=== PATIENT | female | born 1955 | race Caucasian/White ===

== ENCOUNTER 2019-12-23 08:09 | Outpatient (CLI) | payer MEDICARE, MEDICAID, SELFPAY | END 2019-12-23 08:10 | disposition home or self-care (01) | PROVIDERS: PCP Internal Medicine; Visit Provider Internal Medicine | DX: R39.9 Unspecified symptoms and signs involving the genitourinary system (principal) | CPT/HCPCS: 87086; 87088 ==

== ENCOUNTER 2019-12-26 09:33 | Outpatient (CLI) | payer MEDICARE, MEDICAID, SELFPAY | END 2019-12-26 09:34 | disposition home or self-care (01) | LOC: ANHLAB 09:35 | PROVIDERS: PCP Internal Medicine; Visit Provider Internal Medicine | DX: R39.9 Unspecified symptoms and signs involving the genitourinary system (principal) | CPT/HCPCS: 87077; 87086; 87088; 87186 ==

== ENCOUNTER 2020-01-08 07:15 | Outpatient (CLI) | payer MEDICARE, MEDICAID, SELFPAY ==
--- NOTE | ~2020-01-08 | CT_ITS ---
EXAMINATION: CT abdomen pelvis wo con DATE: 01/08/2020 07:47 INDICATION: Kidney calculus TECHNIQUE: Computed tomography (CT) of the abdomen and pelvis was performed without intravenous contr ast. Automated exposure control and iterative reconstruction technique were employed. Exam dose: 151 6.97 mGy-cm total exam DLP. COMPARISON: 07/07/[address] abdomen pelvis FINDINGS: Cardiomegaly. No pericardial or pleural effusion. There is mild discoid atelectasis and/or scarring in the lower lungs. No consolidation is noted. No hepatic space-occupying mass lesion or intrahepatic or extrahepatic bile duct dilatation is detect ed. The gallbladder is absent. Spleen measures 11.5 cm length, 14 cm being upper limits of normal. No pancreatic mass lesion, calcification or ductal dilatation. Normal morphology of the adrenal glands. There is bilateral renal atrophy and prominent scarring. There are two 5 mm or smaller nonobstructing lower pole right renal calculi and suggestion of a coupl e of pinpoint nonobstructing additional mid to lower right renal calculi. There are 4 larger nonobstructing left renal calculi, measuring up to 8 x 12.6 mm dimension, the latt er with attenuation 470 Hounsfield units. No ureteral calculi or hydroureteronephrosis. The urinary bladder is unremarkable. The uterus is abse nt. Stable 5.8 mm cystic lesion in the right adnexal area, unchanged since 07/07/2019 or 04/17/2018, with a ttenuation of 17 Hounsfield units. This is likely a postoperative seroma or other benign process give n the stability since 04/17/2018. Relatively stable 2.0 and 2.6 cm cystic areas in the left lower quadrant, unchanged since 07/07/2019 Probable appendectomy. There are numerous diverticula of the sigmoid and to a lesser extent descending colon; no CT evidence of diverticulitis. No bowel obstruction, bowel wall thickening, pneumatosis. Small fat-containing umbilical hernia. There is partial herniation of a loop of small bowel through a defect in the left parasagittal ventra l lower abdominal wall. No evidence of bowel obstruction or strangulation. There is persistent but diminished fat stranding along the infraumbilical anterior abdominal wall sin ce 07/07/2019. Diffuse idiopathic skeletal hyperostosis of the lower thoracic spine. No suspicious osteolytic or ost eoblastic lesions are identified. IMPRESSION: Bilateral renal atrophy and prominent scarring Bilateral nonobstructive nephrolithiasis Stable lower left abdominal and right adnexal cystic lesions since 07/07/2019 Diverticulosis of the sigmoid colon; no CT evidence of diverticulitis Minimal small bowel herniation through a left parasagittal lower ventral abdominal hernia Reviewed, dictated and finalized at [facility]. Reviewed, dictated and finalized at location B. IMPRESSION: Bilateral renal atrophy and prominent scarring Bilateral nonobstructive nephrolithiasis Stable lower left abdominal and right adnexal cystic lesions since 07/07/2019 Diverticulosis of the sigmoid colon; no CT evidence of diverticulitis Minimal small bowel herniation through a left parasagittal lower ventral abdomi nal hernia
== END 2020-01-08 07:16 | disposition home or self-care (01) ==
LOC: ANHIMG 07:22
PROVIDERS: PCP Internal Medicine; Visit Provider Urology
DX: N20.0 Calculus of kidney (principal); E27.8 Other specified disorders of adrenal gland; K57.30 Diverticulosis of large intestine without perforation or abscess without bleeding; K43.9 Ventral hernia without obstruction or gangrene
CPT/HCPCS: 74176

== ENCOUNTER 2020-02-03 08:50 | Outpatient (CLI) | payer MEDICARE, MEDICAID, SELFPAY ==
--- NOTE | 2020-02-03 08:57 | ECHO_ITS ---
Patient Info Name: Rosario Ruiz Age: 64 years : 1955 Gender: Female Ht: 65 in Wt: 340 lbs BSA: 2.76 m2 HR: 72 bpm BP: 128 / 82 mmHg Technical Quality: Poor, Other Exam Date: 02/03/2020 9:04 AM Exam Location: [facility] Patient Status: Outpatient Admit Date: 02/03/2020 Staff Ordering Physician: Kenny Ramos DO [employer] Manager: Jolynn Rose RDCS Attending Provider: Kenny Ramos DO Referring Physician: Richard MCMANUS; Exam Type: CA echo dop color flow w con Study Info Indications - heart disease sob Complete two-dimensional, color flow and Doppler transthoracic echocardiogram is performed with contrast to opacify the left ventricle and to improve the deliniation of the left ventricle endocardial borders. Contrast/Agitated Saline Contrast/Ag. Saline: Definity Amount: 2.00 ml Administered By: Janak Martinez RN New IV Access: Left Site Condition: IV removed Reason for Poor Study: patient body habitus Summary 1. Technically suboptimal study due to poor sonographic images. 2. Left ventricular chamber dimension is normal. 3. Definity contrast administered improved wall motion interpretation. 4. Left ventricular systolic function is normal, estimated at 60-65%. 5. There is moderately increased left ventricular wall thickness. 6. The left ventricular diastolic function is grade I diastolic dysfunction. 7. E/e' 11 is mildly elevated. 8. Right ventricular systolic function is mildly reduced. 9. Right ventricular chamber dimension is moderately enlarged. 10. Left atrial chamber dimension is mildly enlarged. 11. Right atrial chamber dimension is mildly enlarged. 12. No pulmonary hypertension, estimated pulmonary arterial systolic pressure is 29 mmHg. 13. There is mild pulmonic regurgitation. 14. There is small to moderate circumferential pericardial effusion. Moderate is located posteriorly measuring up to 1.4 cm. Left Ventricle Technically suboptimal study due to poor sonographic images. Definity contrast administered improved wall motion interpretation. E/e' 11 is mildly elevated. Left ventricular chamber dimension is normal. Left ventricular systolic function is normal, estimated at 60-65%. There is moderately increased left ventricular wall thickness. The left ventricular diastolic function is grade I diastolic dysfunction. Right Ventricle Right ventricular systolic function is mildly reduced. Right ventricular chamber dimension is moderately enlarged. Left Atria Left atrial chamber dimension is mildly enlarged. Right Atria Right atrial chamber dimension is mildly enlarged. Aortic Valve Cannot determine number of aortic valve leaflets. The aortic valve is not well visualized. There is no aortic valve stenosis. There is no aortic valve regurgitation. Pulmonic Valve There is mild pulmonic regurgitation. Mitral Valve There is no mitral valve stenosis. There is no mitral valve regurgitation. Tricuspid Valve There is no tricuspid valve regurgitation. No pulmonary hypertension, estimated pulmonary arterial systolic pressure is 29 mmHg. Pericardium/Pleural There is small to moderate circumferential pericardial effusion. Moderate is located posteriorly measuring up to 1.4 cm. Inferior Vena Cava Normal inferior vena cava with >50% collapse upon inspiration consistent with normal right atrial pressure, 5 mmHg. Aorta The aortic root size at the sinus of Valsalva is norm
== END 2020-02-03 08:51 | disposition home or self-care (01) ==
LOC: ANHCARD 08:52
PROVIDERS: PCP Internal Medicine; Visit Provider Internal Medicine Cardiovascular Disease
DX: I51.89 Other ill-defined heart diseases (principal)
CPT/HCPCS: C8929

== ENCOUNTER 2020-02-22 08:47 | Outpatient (CLI) | payer MEDICARE, MEDICAID, SELFPAY ==
--- NOTE | ~2020-02-22 | XR_ITS ---
XR knee LT 3V DATE: 02/22/2020 09:06 INDICATION: Patellar pain. No injury. TECHNIQUE: [place] and standing AP and lateral views COMPARISON: 08/12/2016 bilateral knees FINDINGS: There is hypertrophic change of the tibial spines. There is prominent periarticular spurrin g of the patellofemoral and lateral compartments. Moderate osteopenia. No fracture, dislocation, periosteal reaction or bone destruction, radiopaque in tra-articular loose body or chondrocalcinosis. IMPRESSION: Osteoarthritis involving primarily the lateral and patellofemoral compartments Osteopenia Reviewed, dictated and finalized at location A. IMPRESSION: Osteoarthritis involving primarily the lateral and patellofemoral c ompartments Osteopenia
== END 2020-02-22 08:48 | disposition home or self-care (01) ==
LOC: ANHIMG 08:51
PROVIDERS: PCP Internal Medicine; Visit Provider Nurse Practitioner
DX: M85.862 Other specified disorders of bone density and structure, left lower leg (principal); M17.12 Unilateral primary osteoarthritis, left knee
CPT/HCPCS: 73562

== ENCOUNTER 2020-02-24 21:22 | Observation (INO) | payer MEDICARE, MEDICAID, SELFPAY ==
--- NOTE | ~2020-02-24 | US_ITS ---
EXAMINATION: US venous doppler [facility] DATE: 02/25/2020 14:48 INDICATION: Lower limb pain and swelling TECHNIQUE: Garcia scale images without and with compression and Doppler images of the bilateral lower e xtremity veins were obtained. COMPARISON: 07/07/2019 FINDINGS: The right common femoral vein, profunda femoral vein, femoral vein, popliteal vein, peroneal trunk, p osterior tibial veins, and greater saphenous vein are patent. The left common femoral vein, profunda femoral vein, femoral vein, popliteal vein, peroneal trunk, po sterior tibial veins, and greater saphenous vein are patent. IMPRESSION: 1. Patent bilateral lower extremity veins. No evidence of deep venous thrombosis. Reviewed, dictated and finalized at location B. IMPRESSION: 1. Patent bilateral lower extremity veins. No evidence of deep venous thrombosi s.
[2020-02-24 21:25] VITALS: BP 120/50; PULSE 69; RESP 15; TEMP 36.3; O2SAT 92
[2020-02-24 23:00] VITALS: BP 118/69; PULSE 76; RESP 17; O2SAT 95
--- NOTE | 2020-02-24 23:15 | ED.EXTPRO ---
HPI - Extremity Problem General Chief complaint: Extremity Problem,Nontraumatic Stated complaint: b/l leg swelling/redness Time Seen by Provider: 02/24/20 23:14 History of Present Illness HPI Narrative: 64 year old female with history of lymphedema, chf, DVT, DM presents to the ED via EMS complaining of bilateral lower leg redness, swelling, and pain for 1 week. Symptoms gradually worsened now requiring a walker. She also noticed that she had worsening redness of both lower legs, worse on the right lower leg then the left. No fever, CP, SOB, Wound. Related Data Home Medications Medication Instructions Recorded Confirmed insulin glargine 100 unit/mL (3 56 unit SUB-Q DAILY ml 08/20/19 02/25/20 mL) subcutaneous pen cephalexin 250 mg PO DAILY 02/25/20 02/25/20 fenofibrate 54 mg PO DAILY 02/25/20 02/25/20 furosemide 20 mg PO DIRECTED 02/25/20 02/25/20 Allergies Allergy/AdvReac Type Severity Reaction Status Date / Time adhesive tape Allergy Unknown RASH Verified 02/24/20 21:29 atorvastatin Allergy Unknown rash Verified 02/24/20 21:29 ciprofloxacin Allergy Unknown rash Verified 02/24/20 21:29 nitrofurantoin Allergy Unknown rash Verified 02/24/20 21:29 rosuvastatin Allergy Unknown Rash Verified 02/24/20 21:29 Penicillins AdvReac Intermediate Rash Verified 02/24/20 21:29 Review of Systems Review of Systems: All systems reviewed & are unremarkable except as noted in HPI and below Constitutional: Constitutional: Reports chills, Denies fever(s) and Reports weakness ENT: Denies dizziness Cardiovascular: Cardiovascular: Denies chest pain Respiratory: Respiratory: Denies dyspnea Gastrointestinal: Gastrointestinal: Denies abdominal pain and Reports nausea Genitourinary: Genitourinary: Denies hematuria and Denies dysuria Neurologic: Denies confusion and Denies focal weakness [facility] Past Medical History Medical History Colon polyps Diastolic dysfunction DVT (deep venous thrombosis) Kidney stones Lymphedema Personal history of pulmonary embolism Pure hypercholesterolemia, unspecified Recurrent postcoital urinary tract infection Sleep apnea 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 2 diabetes mellitus with stage 3 chronic kidney disease Venous insufficiency Vitamin D deficiency, unspecified Surgical History Surgical History H/O colonoscopy H/O hysterectomy for benign disease H/O thymectomy History of cholecystectomy History of renal stent S/P carpal tunnel release S/P removal of ovarian cyst Family History Family History Mother Family history of diabetes mellitus in first degree relative Patient's mother is Father Family history of heart disease in male family member before age 55 Other Diabetes mellitus Family history of coronary artery disease Social History Social History Social History: Patient lives at home alone. She designates her daughter, Ioana Castillo, as her surrogate MDM. Her PCP is Dr. Rooney. She wishes to be a full code Smoking packs per day: 1 Smoking cigarettes per day: 20.0 Years smoked: 40 Smoking pack-years: 40.00 Smoking status: Former smoker Second hand tobacco smoke exposure: Yes Smoking end date: 06/17/14 Alcohol intake: never Substance use: never Substance use type: does not use Additional living arrangements comments: Lives alone in apartment Gender identity (if verbalized by the patient): Female Spiritual care concerns: No Agree to blood products: Yes Exam Const: General: no acute distress and alert Nutritional Appearance: obese Orientation/consciousness: patient oriented x3 HENMT: Head: normal to inspection Resp: Effort & Inspection: normal respiratory effort Auscultation:
[2020-02-24 23:43] LABS: Basophils Absolute Auto 0.1 K/mm3 (0.0-0.1); Basophils Percent Auto 0.7 % (0.2-1.2); Eosinophils Absolute Auto 0.5 K/mm3 (0-0.3); Eosinophils Percent Auto 6.9 % (0-4.4); Hematocrit 38.9 % (37.0-47.0); Hemoglobin 11.8 g/dL (12.0-15.0); Immature Granulocyte Absolute 0.03 K/mm3 (0.00-0.031); Immature Granulocyte Percent A 0.4 % (0-0.5); Lymphocytes Absolute Auto 1.25 K/mm3 (0.9-3.2); Lymphocytes Percent Auto 18.7 % (18.3-44.2); Mean Corpuscular HGB Conc 30.3 g/dl (32-36); Mean Corpuscular Hemoglobin 28.2 pg (26-34); Mean Corpuscular Volume 93.1 fl (80-100); Mean Platelet Volume 12.8 fl (7.4-10.4); Monocytes Absolute Auto 0.4 K/mm3 (0.1-0.6); Monocytes Percent Auto 5.2 % (2.6-8.5); Neutrophils Absolute Auto 4.5 K/mm3 (1.3-6.7); Neutrophils Percent Auto 68.1 % (45.5-73.1); Platelet Count Result 150 k/mm3 (150-375); Red Blood Count 4.18 M/mm3 (4.2-5.4); Red Cell Distribution Width 14.7 % (11.5-14.5); White Blood Count 6.7 K/mm3 (4.5-10.0)
--- NOTE | 2020-02-24 23:45 | PC.NURSE ---
pt placed on bed yanez at this time. pt sitting up on side of stretcher. denies any needs/concerns. pt updated on poc. call light in reach-encouraged to use.
[2020-02-24 23:53] LABS: INR 1.1; Partial Thromboplastin Time 26.4 SECONDS (22.3-36.8); Prothrombin Time 13.4 Seconds (11.1-14.7)
[2020-02-25] LABS: Alanine Aminotransferase 14 U/L (4-35); Albumin Level 3.7 g/dL (3.5-5.1); Alkaline Phosphatase 109 U/L (38-126); Anion Gap 5 mmol/L (8-16); Aspartate Amino Transferase 20 U/L (14-36); Bilirubin,Total 0.4 mg/dL (0.2-1.3); Blood Urea Nitrogen 37 mg/dL (7-17); Calcium 8.6 mg/dL (8.4-10.2); Carbon Dioxide 29 mmol/L (22-30); Chloride 106 mmol/L (98-107); Estimated Glomerular Filt Rate 16; Glucose 136 mg/dL (65-105); Potassium 3.8 mmol/L (3.4-5.0); Sodium 140 mmol/L (137-145)
[2020-02-25 00:01] LABS: Lactic Acid Reflex 0.7 mmol/L (0.7-2.1)
[2020-02-25 00:09] LABS: NT Pro B Type Natriuretic Pept 322 PG/ML (5-100)
[2020-02-25 01:00] VITALS: BP 97/44; PULSE 65; RESP 16; O2SAT 94
--- NOTE | 2020-02-25 01:00 | PC.NURSE ---
alaina care provided at this time.
[2020-02-25 02:10] LABS: Glucose Point of Care 182 (65-105)
[2020-02-25 02:45] VITALS: BP 96/46; PULSE 62; RESP 16; O2SAT 96
--- NOTE | 2020-02-25 03:59 | ADMGEN ---
This patient, Rosario Ruiz, was admitted to 2 Medical Room 242-. Patient/family oriented to hospital policies and general routines including ID bracelet, bed and alarms, visiting hours, pain management, procedures, bathroom and other care routines, personal items, smoking policy, room service/diet, and visiting hours. Valuables list has been completed. Information on how to activate the Rapid Response Team has been discussed. Patient/Family are encouraged to report perceived risks to care and to ask questions if they do not understand what they are told or what they should do.
[2020-02-25 04:00] VITALS: BP 100/51; PULSE 72; RESP 22; TEMP 36; O2SAT 95; BMI 57.8
[2020-02-25 05:40] LABS: Estimated CRCL calculation 30 ml/min; Estimated Glomerular Filt Rate 18
[2020-02-25] MEDS: ACETAMINOPHEN 325 MG TABLET 650 MG PO (05:51)
[2020-02-25] MEDS: INSULIN ASPART (*BKC) 100 UNITS/ML 10 UNITS SUB-Q ×3 (08:40→16:50)
[2020-02-25] MEDS: SODIUM CHLORIDE 0.9% IV 1,000 ML 100 ML IV CONT (08:40)
[2020-02-25] MEDS: SIMVASTATIN 20 MG TABLET PO (08:41)
--- NOTE | 2020-02-25 08:45 | PM.IMHP ---
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 Patient states her swelling in her legs worsened 1 week ago with mild pain. These symptoms gradually worsened this past week to a point were she needed to use a walker at home to ambulate. She also noticed that she had worsening redness of both lower legs, worse on the right lower leg then the left. She does not that the left anterior part of the lower leg is chronically darkened after she hit her leg on furniture several months ago. She does not note having any injury or bites to the right leg. She denies any subjective fevers, but notes chronically having chills, as well as, occasional nausea. She is unable to rate her leg pain, but notes it got so bad she decided to proceed to the ED. She states the pain is sometimes burning, but at other times a dull, constant pain. She also notes some right calf pain as well and that she has had a previous blood clot in the past. Notes a cough from drainage from her nose. No other complaints at the moment. Denies headaches, dizziness, lightheadedness, changes in v/h, cp/palpitations, sob, current n/v/d/c, abd pain, changes in BMs, dysuria, hematuria, cloudy urine. 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 2 diabetes mellitus with stage 3 chronic kidney disease Venous insufficiency Vitamin D deficiency, unspecified Surgical History Surgical History H/O colonoscopy H/O hysterectomy for benign disease H/O thymectomy History of cholecystectomy History of renal stent S/P carpal tunnel release S/P removal of ovarian cyst Family History Family History Mother Family history of diabetes mellitus in first degree relative Patient's mother is Father Family history of heart disease in male family member before age 55 Other Diabetes mellitus Family history of coronary artery disease Social History Social History Social History: Patient lives at home alone. She designates her daughter, Ioana Castillo, as her surrogate MDM. Her PCP is Dr. Rooney. She wishes to be a full code Smoking packs per day: 1 Smoking cigarettes per day: 20.0 Years smoked: 40 Smoking pack-years: 40.00 Smoking status: Former smoker Second hand tobacco smoke exposure: Yes Smoking end date: 06/17/14 Alcohol intake: never Substance use: never Substance use type: does not use Additional living arrangements comments: Lives alone in apartment Gender identity (if verbalized by the patient): Female Spiritual care concerns: No Agree to blood products: Yes Meds Home Medications and Allergies Home Medications Medication Instructions Recorded Confirmed Type simvastatin 20 mg tablet 20 mg PO DAILY #90 tablet 07/13/19 02/25/20 Rx insulin glargine 100 unit/mL (3 56 unit SUB-Q DAILY ml 08/20/19 02/25/20 History mL) subcutaneous pen insulin lispro 100 unit/mL See Rx Instructions .ROUTE 12/10/19 02/25/20 Rx subcutaneous pen .COMPLEX #15 ml trama
[2020-02-25] MEDS: HEPARIN SODIUM 5,000 UNITS/ML VIAL 5000 UNITS SUB-Q ×2 (09:25→20:35)
[2020-02-25 09:32] LABS: Glucose Point of Care 153 (65-105)
[2020-02-25 12:02] LABS: Glucose Point of Care 173 (65-105)
[2020-02-25 14:00] VITALS: BP 93/71; PULSE 68; RESP 16; TEMP 36.4; O2SAT 95
[2020-02-25] MEDS: traMADol HCL 50 MG TABLET PO (15:20)
[2020-02-25 16:22] LABS: Glucose Point of Care 159 (65-105)
[2020-02-25 20:00] VITALS: BP 117/52; PULSE 68; RESP 22; TEMP 36.2; O2SAT 90
[2020-02-25] MEDS: INSULIN GLARGINE (*BKC) 100 UNITS/ML 42 UNITS SUB-Q (20:36)
[2020-02-25 21:50] LABS: Glucose Point of Care 156 (65-105)
[2020-02-26] MEDS: traMADol HCL 50 MG TABLET PO (00:44)
[2020-02-26 04:00] VITALS: BP 111/50; PULSE 71; RESP 22; TEMP 36.2; O2SAT 93
[2020-02-26 05:06] LABS: Basophils Percent Auto 0.5 % (0.2-1.2); Eosinophils Absolute Auto 0.4 K/mm3 (0-0.3); Eosinophils Percent Auto 6.8 % (0-4.4); Hematocrit 38.6 % (37.0-47.0); Hemoglobin 11.6 g/dL (12.0-15.0); Immature Granulocyte Absolute 0.04 K/mm3 (0.00-0.031); Immature Granulocyte Percent A 0.7 % (0-0.5); Immature Platelet Fraction Pct 12.4 % (0.9-11.2); Lymphocytes Absolute Auto 0.98 K/mm3 (0.9-3.2); Lymphocytes Percent Auto 17.5 % (18.3-44.2); Mean Corpuscular HGB Conc 30.1 g/dl (32-36); Mean Corpuscular Volume 93.2 fl (80-100); Mean Platelet Volume 12.2 fl (7.4-10.4); Monocytes Absolute Auto 0.3 K/mm3 (0.1-0.6); Monocytes Percent Auto 5.7 % (2.6-8.5); Neutrophils Absolute Auto 3.9 K/mm3 (1.3-6.7); Neutrophils Percent Auto 68.8 % (45.5-73.1); Platelet Count Result 127 k/mm3 (150-375); Red Blood Count 4.14 M/mm3 (4.2-5.4); Red Cell Distribution Width 14.6 % (11.5-14.5); White Blood Count 5.6 K/mm3 (4.5-10.0)
[2020-02-26 05:11] LABS: Hemoglobin A1C 6.6 % (<5.7)
[2020-02-26] MEDS: ACETAMINOPHEN 325 MG TABLET 650 MG PO (06:05)
[2020-02-26 07:34] LABS: Anion Gap 8 mmol/L (8-16); Blood Urea Nitrogen 33 mg/dL (7-17); Calcium 8.6 mg/dL (8.4-10.2); Carbon Dioxide 23 mmol/L (22-30); Chloride 105 mmol/L (98-107); Estimated CRCL calculation 34 ml/min; Estimated Glomerular Filt Rate 21; Glucose 131 mg/dL (65-105); Sodium 136 mmol/L (137-145)
[2020-02-26 08:19] LABS: Glucose Point of Care 143 (65-105)
--- NOTE | 2020-02-26 08:57 | PM.DS ---
DS: Admitting Diagnosis Admitting Diagnosis Admitting Diagnosis: RLE cellulitis DS: Discharge Diagnosis Discharge Diagnosis (1) Cellulitis of lower leg: Code(s): L03.119 - Cellulitis of unspecified part of limb Status: Acute Assessment and Plan: On the right lower leg, there is an area to the lateral/anterior portion of the leg with some suspicion of cellulitis. There appears to be overall improvement in area of suspicion. The anterior aspects of both lower legs, distally, appear to be chronic venous insufficiency in nature. Imipenem and Vanc during hospital stay given DM and per Antibiotic Stewardship. Venous doppler negative for DVT. Given her multiple allergies, CKD, and DM, there are limited options for oral antibiotics; doxycycline appears to be the most appropriate choice, but with limited coverage. Patient does take Keflex indefinitely to help prevent her recurrent UTIs. Given that she does not have a reaction to this 1st generation cephalosporin, will start cefdinir (3rd gen) today, monitor her for several hours, and likely discharge with this in conjunction to doxycycline Will send home with Doxycycline and cefdinir to complete 7 days total of antibiotics (Through 03/02), if tolerating cefdinir today. Received call from nursing this afternoon stating she had no signs of reaction to medication and is feeling great. Will discharge today Will have her resume Keflex on 03/03 Instructed her to monitor for improvement over next several days and to contact her PCP if she notices any worsening signs/symptoms. She is comfortable with this plan. PT/OT evals performed with no discharge recs Encourage elevation of leg when not ambulating Recommended compression stockings to improve chronic lymphedema/venous stasis but states her daughter does not want her to wear these. Also encouraged Eucerin cream to help keep skin moist and intact (2) Acute worsening of stage 3 chronic kidney disease: Code(s): N18.3 - Chronic kidney disease, stage 3 (moderate) Status: Acute Assessment and Plan: Cr is 2.30 today; improved since admission. Baseline appears to be around 2.00 upon review of labs. She sees Dr. Bowen (Nephrology) in April. Will do BMP in 1 week for further monitoring Instructed her to follow up at her scheduled time, but to call to see if they want her to come in sooner Encouraged adequate oral hydration (3) Muscle spasm: Code(s): M62.838 - Other muscle spasm Status: Acute Assessment and Plan: No acute issues at this time Continue home PRN robaxin (4) Chronic knee pain: Code(s): M25.569 - Pain in unspecified knee; G89.29 - Other chronic pain Status: Acute Assessment and Plan: No acute issues at this time Continue home medication (5) Diastolic dysfunction: Code(s): I51.89 - Other ill-defined heart diseases Status: Acute Assessment and Plan: Is followed by Dr. Ramos as an outpatient Continue home medications (6) Type 2 diabetes mellitus with diabetic polyneuropathy: Qualifiers: Diabetes mellitus penitentiary insulin use: with penitentiary use Qualified Code(s): E11.42 - Type 2 diabetes mellitus with diabetic polyneuropathy; Z79.4 - skilled nursing (current) use of insulin Code(s): E11.42 - Type 2 diabetes mellitus with diabetic polyneuropathy Status: Acute Assessment and Plan: BGL 100s Novolog 10 u TIDWM, and Lantus 42 u QHS during stay Accuchecks ACHS, hypoglycemia protocol, correctional insulin, diabetic diet during stay Continue home meds at discharge (7) Sleep apnea: Qualifiers: Sleep apnea type: obstructive Qualified Code(s): G47.33 - Obstructive sleep apnea (adult) (pediatric
[2020-02-26] MEDS: FUROSEMIDE 20 MG TABLET PO (09:06)
[2020-02-26] MEDS: INSULIN ASPART (*BKC) 100 UNITS/ML 10 UNITS SUB-Q ×2 (09:06→11:45)
[2020-02-26] MEDS: SIMVASTATIN 20 MG TABLET PO (09:06)
[2020-02-26] MEDS: CEFDINIR 300 MG CAPSULE PO (10:24)
[2020-02-26] MEDS: DOXYCYCLINE HYCLATE 100 MG TABLET PO (10:24)
[2020-02-26 12:01] LABS: Glucose Point of Care 150 (65-105)
[2020-02-26 14:00] VITALS: BP 142/63; PULSE 75; RESP 16; TEMP 36.7; O2SAT 92
== END 2020-02-26 15:40 | disposition home or self-care (01) ==
LOC: ANHED 23:14 → ANH2MED 02-25 03:56
PROVIDERS: Emergency Medicine; Physician Assistant; Admitting Provider Internal Medicine; Emergency Provider Emergency Medicine; PCP Internal Medicine; Visit Provider Hospitalist
DX: L03.115 Cellulitis of right lower limb (principal); I87.2 Venous insufficiency (chronic) (peripheral); I89.0 Lymphedema, not elsewhere classified; I50.30 Unspecified diastolic (congestive) heart failure; Z23 Encounter for immunization; E11.22 Type 2 diabetes mellitus with diabetic chronic kidney disease; N18.3 Chronic kidney disease, stage 3 (moderate); E11.42 Type 2 diabetes mellitus with diabetic polyneuropathy; Z79.4 Long term (current) use of insulin; E55.9 Vitamin D deficiency, unspecified; E78.00 Pure hypercholesterolemia, unspecified; G47.33 Obstructive sleep apnea (adult) (pediatric); G89.29 Other chronic pain; M25.569 Pain in unspecified knee; Z86.718 Personal history of other venous thrombosis and embolism; Z87.442 Personal history of urinary calculi
CPT/HCPCS: 36415; 80048; 80053; 82565; 83036; 83605; 83735; 83880; 85025; 85055; 85610; 85730; 87040; 90471; 90686; 93970; 96361; 96365; 96366; 96367; 96376; 97161; 97165; 99285; A9270; G0008; G0378; J0743; J1644; J1815; J3370; J7030

== ENCOUNTER 2020-03-03 09:17 | Outpatient (CLI) | payer MEDICARE, MEDICAID, SELFPAY ==
[2020-03-03 09:46] LABS: Hematocrit 39.1 % (37.0-47.0); Hemoglobin 12.1 g/dL (12.0-15.0); Mean Corpuscular HGB Conc 30.9 g/dl (32-36); Mean Corpuscular Hemoglobin 28.9 pg (26-34); Mean Corpuscular Volume 93.5 fl (80-100); Mean Platelet Volume 12.6 fl (7.4-10.4); Platelet Count Result 143 k/mm3 (150-375); Red Blood Count 4.18 M/mm3 (4.2-5.4); Red Cell Distribution Width 14.7 % (11.5-14.5)
[2020-03-03 09:51] LABS: Anion Gap 5 mmol/L (8-16); Blood Urea Nitrogen 41 mg/dL (7-17); Calcium 9.6 mg/dL (8.4-10.2); Carbon Dioxide 29 mmol/L (22-30); Chloride 104 mmol/L (98-107); Estimated Glomerular Filt Rate 19; Glucose 86 mg/dL (65-105); Potassium 3.8 mmol/L (3.4-5.0); Sodium 138 mmol/L (137-145)
[2020-03-03 09:53] LABS: Albumin Level 3.8 g/dL (3.5-5.1); Anion Gap 4 mmol/L (8-16); Blood Urea Nitrogen 40 mg/dL (7-17); Calcium 9.5 mg/dL (8.4-10.2); Carbon Dioxide 29 mmol/L (22-30); Chloride 103 mmol/L (98-107); Estimated Glomerular Filt Rate 19; Glucose 85 mg/dL (65-105); Phosphorus 3.7 mg/dL (2.5-4.5); Potassium 3.9 mmol/L (3.4-5.0); Sodium 136 mmol/L (137-145)
== END 2020-03-03 09:18 | disposition home or self-care (01) ==
PROVIDERS: Physician Assistant; PCP Internal Medicine; Visit Provider Internal Medicine Nephrology
DX: N18.4 Chronic kidney disease, stage 4 (severe) (principal)
CPT/HCPCS: 36415; 80048; 80069; 85027

== ENCOUNTER 2020-03-25 09:23 | Outpatient (CLI) | payer MEDICARE, MEDICAID, SELFPAY ==
[2020-03-25 10:24] LABS: Anion Gap 9 mmol/L (8-16); Blood Urea Nitrogen 47 mg/dL (7-17); Calcium 8.9 mg/dL (8.4-10.2); Carbon Dioxide 33 mmol/L (22-30); Chloride 99 mmol/L (98-107); Estimated Glomerular Filt Rate 18; Glucose 216 mg/dL (65-105); Potassium 3.6 mmol/L (3.4-5.0); Sodium 141 mmol/L (137-145)
== END 2020-03-25 09:24 | disposition home or self-care (01) ==
PROVIDERS: PCP Internal Medicine; Referring Provider Internal Medicine Nephrology; Visit Provider Internal Medicine
DX: N18.4 Chronic kidney disease, stage 4 (severe) (principal)
CPT/HCPCS: 36415; 80048

== ENCOUNTER 2020-03-25 18:50 | Inpatient (IN) | payer MEDICARE, MEDICAID, SELFPAY ==
[2020-03-25 18:53] VITALS: BP 132/62; PULSE 72; RESP 24; TEMP 36.7; O2SAT 90
[2020-03-25 18:57] VITALS: PULSE 70; RESP 21; O2SAT 92
[2020-03-25 20:21] VITALS: BP 118/59; PULSE 66; RESP 18; O2SAT 92
[2020-03-25 20:44] LABS: Basophils Percent Auto 0.5 % (0.2-1.2); Eosinophils Absolute Auto 0.3 K/mm3 (0-0.3); Eosinophils Percent Auto 4.9 % (0-4.4); Hematocrit 37.1 % (37.0-47.0); Hemoglobin 11.4 g/dL (12.0-15.0); Immature Granulocyte Absolute 0.04 K/mm3 (0.00-0.031); Immature Granulocyte Percent A 0.6 % (0-0.5); Lymphocytes Absolute Auto 0.89 K/mm3 (0.9-3.2); Mean Corpuscular HGB Conc 30.7 g/dl (32-36); Mean Corpuscular Hemoglobin 28.8 pg (26-34); Mean Corpuscular Volume 93.7 fl (80-100); Mean Platelet Volume 11.9 fl (7.4-10.4); Monocytes Absolute Auto 0.4 K/mm3 (0.1-0.6); Monocytes Percent Auto 6.3 % (2.6-8.5); Neutrophils Absolute Auto 4.7 K/mm3 (1.3-6.7); Neutrophils Percent Auto 73.7 % (45.5-73.1); Platelet Count Result 145 k/mm3 (150-375); Red Blood Count 3.96 M/mm3 (4.2-5.4); Red Cell Distribution Width 14.8 % (11.5-14.5); White Blood Count 6.4 K/mm3 (4.5-10.0)
[2020-03-25 20:56] LABS: Alanine Aminotransferase 14 U/L (4-35); Albumin Level 3.7 g/dL (3.5-5.1); Alkaline Phosphatase 98 U/L (38-126); Anion Gap 7 mmol/L (8-16); Aspartate Amino Transferase 20 U/L (14-36); Bilirubin,Total 0.5 mg/dL (0.2-1.3); Blood Urea Nitrogen 46 mg/dL (7-17); Calcium 8.9 mg/dL (8.4-10.2); Carbon Dioxide 32 mmol/L (22-30); Chloride 100 mmol/L (98-107); Estimated CRCL calculation 29 ml/min; Estimated Glomerular Filt Rate 17; Glucose 187 mg/dL (65-105); Potassium 3.6 mmol/L (3.4-5.0); Sodium 139 mmol/L (137-145)
[2020-03-25 21:02] LABS: Lactic Acid Reflex 1.1 mmol/L (0.7-2.1)
--- NOTE | 2020-03-25 21:28 | ED.WOUNDLAC ---
HPI - Wound/Laceration General Chief Complaint: Wound/Laceration Stated Complaint: cellulitis Time Seen by Provider: 03/25/20 21:04 History of Present Illness HPI narrative: Swelling, pain, redness to the bilateral lower legs for 2 months. She has had multiple courses of antibiotics and her symptoms have continued to get worse. SHe reports that she tries to keep her feet elevated, although on my evaluation she has chosen to sit in a wheelchair instead of in the bed with her feet elevated. Related Data Home Medications Medication Instructions Recorded Confirmed insulin glargine 100 unit/mL (3 56 unit SUB-Q HS ml 08/20/19 03/26/20 mL) subcutaneous pen cephalexin 500 mg PO DAILY 02/25/20 03/26/20 fenofibrate 54 mg PO DAILY 02/25/20 03/26/20 albuterol sulfate 2 puff INHALATION PRN PRN 03/26/20 03/26/20 furosemide 40 mg PO DAILY 03/26/20 03/26/20 Allergies Allergy/AdvReac Type Severity Reaction Status Date / Time adhesive tape Allergy Unknown RASH Verified 03/25/20 23:54 atorvastatin Allergy Unknown rash Verified 03/25/20 23:54 ciprofloxacin Allergy Unknown rash Verified 03/25/20 23:54 nitrofurantoin Allergy Unknown rash Verified 03/25/20 23:54 rosuvastatin Allergy Unknown Rash Verified 03/25/20 23:54 Penicillins AdvReac Intermediate Rash Verified 03/25/20 23:54 Review of Systems Review of Systems: All systems reviewed & are unremarkable except as noted in HPI and below Constitutional: Constitutional: Reports fatigue, Denies fever(s) and Reports weakness Cardiovascular: Cardiovascular: Denies chest pain Respiratory: Respiratory: Reports dyspnea Neurologic: Reports weakness [facility] Past Medical History Medical History Colon polyps Diastolic dysfunction DVT (deep venous thrombosis) Kidney stones Lymphedema Personal history of pulmonary embolism Pure hypercholesterolemia, unspecified Recurrent postcoital urinary tract infection Sleep apnea 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 2 diabetes mellitus with stage 3 chronic kidney disease Venous insufficiency Vitamin D deficiency, unspecified Surgical History Surgical History H/O colonoscopy H/O hysterectomy for benign disease H/O thymectomy History of cholecystectomy History of renal stent S/P carpal tunnel release S/P removal of ovarian cyst Family History Family History Mother Family history of diabetes mellitus in first degree relative Patient's mother is Diabetes mellitus Father Family history of heart disease in male family member before age 55 Family history of coronary artery disease Social History Social History Social History: Patient lives at home alone. She designates her daughter, Ioana Castillo, as her surrogate MDM. Her PCP is Dr. Rooney. She wishes to be a full code Smoking packs per day: 1 Smoking cigarettes per day: 20.0 Years smoked: 40 Smoking pack-years: 40.00 Smoking status: Former smoker Tobacco type: cigarettes Second hand tobacco smoke exposure: Yes Smoking end date: 06/17/14 Alcohol intake: never Substance use: never Substance use type: does not use Additional living arrangements comments: Lives alone in apartment Gender identity (if verbalized by the patient): Female Sexual Orientation (if Verbalized by the Patient): Straight or Heterosexual Spiritual care concerns: No Agree to blood products: Yes Exam Const: General: no acute distress, alert and ill appearing Nutritional Appearance: obese Orientation/consciousness: patient oriented x3 HENMT: Head: normal to inspection Resp: Effort & Inspection: normal respiratory effort Auscultation: clear to auscultation bilaterally Cardio: Rate: regular rate Rhythm: regular rhythm
--- NOTE | 2020-03-25 22:40 | PC.NURSE ---
imipenem running right hand
[2020-03-25 22:50] VITALS: BP 130/65; PULSE 65; RESP 20; O2SAT 97
--- NOTE | 2020-03-25 23:02 | PM.IMHP ---
H&P: HPI History of Present Illness Date/Time: 03/25/20 23:02 Chief complaint: LE swelling and pain Narrative: This is a morbidly obese 64 year old Diabetic female who is well known to our Hospitalist service from a recent admission for lower extremity swelling and redness last month and who presented to the hospital tonight with a complaint of LE swelling, redness, and pain. She reports 2 months of increased lower extremity redness, swelling, and pain. During the past 2 months the patient has undergone 4 courses of antibiotics without significant improvement. She has been drinking abundant amounts of fluids. She also reports that her PCP has increased her lasix therapy from 20 mg three times a week to 40 mg daily. She has not noticed any significant improvement in her LE swelling and redness. ER provider has evaluated the patient and routine labs were obtained and demonstrated slightly worsening chronic renal failure. The patient denies any recent fevers, chills, cough, shortness of breath, chest pain, abdominal pain, dysuria, hematuria, diarrhea or rectal bleeding. She also denies any open LE wounds or ulcers. Tonight in the ER the patient was again treated with antibiotics and received IV Vancomycin. Review of Systems Review of Systems: All systems reviewed & are unremarkable except as noted in HPI and below PMFSH Past Medical History Medical History Colon polyps Diastolic dysfunction DVT (deep venous thrombosis) Kidney stones Lymphedema Personal history of pulmonary embolism Pure hypercholesterolemia, unspecified Recurrent postcoital urinary tract infection Sleep apnea 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 2 diabetes mellitus with stage 3 chronic kidney disease Venous insufficiency Vitamin D deficiency, unspecified Surgical History Surgical History H/O colonoscopy H/O hysterectomy for benign disease H/O thymectomy History of cholecystectomy History of renal stent S/P carpal tunnel release S/P removal of ovarian cyst Family History Family History Mother Family history of diabetes mellitus in first degree relative Patient's mother is Diabetes mellitus Father Family history of heart disease in male family member before age 55 Family history of coronary artery disease Social History Social History Social History: Patient lives at home alone. She designates her daughter, Ioana Castillo, as her surrogate MDM. Her PCP is Dr. Rooney. She wishes to be a full code Smoking packs per day: 1 Smoking cigarettes per day: 20.0 Years smoked: 40 Smoking pack-years: 40.00 Smoking status: Former smoker Tobacco type: cigarettes Second hand tobacco smoke exposure: Yes Smoking end date: 06/17/14 Alcohol intake: never Substance use: never Substance use type: does not use Additional living arrangements comments: Lives alone in apartment Gender identity (if verbalized by the patient): Female Sexual Orientation (if Verbalized by the Patient): Straight or Heterosexual Spiritual care concerns: No Agree to blood products: Yes Meds Home Medications and Allergies Home Medications Medication Instructions Recorded Confirmed Type simvastatin 20 mg tablet 20 mg PO DAILY #90 tablet 07/13/19 03/26/20 Rx insulin glargine 100 unit/mL (3 56 unit SUB-Q HS ml 08/20/19 03/26/20 History mL) subcutaneous pen insulin lispro 100 unit/mL See Rx Instructions .ROUTE 12/10/19 03/26/20 Rx subcutaneous pen .COMPLEX #15 ml tramadol 50 mg tablet 50 mg PO Q8H PRN #90 tablet 12/21/19 03/26/20 Rx cephalexin 500 mg PO DAILY 02/25/20 03/26/20 History fenofibrate 54 mg PO DAILY 02/25/20 03/26/20 History blood sugar diagnostic #400 each 03/10/20 03/26/20 Rx albuterol sulf
--- NOTE | 2020-03-25 23:40 | ADMGEN ---
This patient, Rosario Ruiz, was admitted to Medical Room 346-01. Patient/family oriented to hospital policies and general routines including ID bracelet, bed and alarms, visiting hours, pain management, procedures, bathroom and other care routines, personal items, smoking policy, room service/diet, and visiting hours. Valuables list has been completed. Information on how to activate the Rapid Response Team has been discussed. Patient/Family are encouraged to report perceived risks to care and to ask questions if they do not understand what they are told or what they should do.
[2020-03-25 23:44] VITALS: BMI 62.7
[2020-03-25 23:57] VITALS: BP 110/48; PULSE 70; RESP 18; TEMP 36.3; O2SAT 95
[2020-03-26] MEDS: ACETAMINOPHEN 325 MG TABLET 650 MG PO (02:24)
[2020-03-26] MEDS: HYDROcodone/acetaminophen (*CRX) 5-325 MG TABLET 1 TAB PO ×2 (05:47→19:41)
[2020-03-26 06:00] VITALS: BP 125/67; PULSE 69; RESP 16; TEMP 36.2; O2SAT 93
[2020-03-26 06:00] LABS: Basophils Percent Auto 0.6 % (0.2-1.2); Eosinophils Absolute Auto 0.3 K/mm3 (0-0.3); Hematocrit 35.6 % (37.0-47.0); Hemoglobin 10.8 g/dL (12.0-15.0); Immature Granulocyte Absolute 0.03 K/mm3 (0.00-0.031); Immature Granulocyte Percent A 0.5 % (0-0.5); Lymphocytes Absolute Auto 0.85 K/mm3 (0.9-3.2); Lymphocytes Percent Auto 13.1 % (18.3-44.2); Mean Corpuscular HGB Conc 30.3 g/dl (32-36); Mean Corpuscular Hemoglobin 28.1 pg (26-34); Mean Corpuscular Volume 92.7 fl (80-100); Mean Platelet Volume 11.9 fl (7.4-10.4); Monocytes Absolute Auto 0.4 K/mm3 (0.1-0.6); Neutrophils Absolute Auto 4.9 K/mm3 (1.3-6.7); Neutrophils Percent Auto 75.8 % (45.5-73.1); Platelet Count Result 146 k/mm3 (150-375); Red Blood Count 3.84 M/mm3 (4.2-5.4); Red Cell Distribution Width 14.6 % (11.5-14.5); White Blood Count 6.5 K/mm3 (4.5-10.0)
[2020-03-26 07:53] LABS: Anion Gap 9 mmol/L (8-16); Blood Urea Nitrogen 46 mg/dL (7-17); Calcium 8.5 mg/dL (8.4-10.2); Carbon Dioxide 28 mmol/L (22-30); Chloride 99 mmol/L (98-107); Estimated CRCL calculation 33 ml/min; Estimated Glomerular Filt Rate 19; Glucose 194 mg/dL (65-105); Sodium 136 mmol/L (137-145)
[2020-03-26 07:57] LABS: Glucose Point of Care 191 (65-105)
[2020-03-26] MEDS: SIMVASTATIN 20 MG TABLET PO (09:52)
[2020-03-26] MEDS: ENOXAPARIN 30 MG/0.3 ML SYRINGE SUB-Q (09:52)
--- NOTE | 2020-03-26 11:33 | PM.IMPN ---
Progress Note: A&P Assessment and Plan (1) Acute worsening of stage 3 chronic kidney disease: Code(s): N18.3 - Chronic kidney disease, stage 3 (moderate) Status: Acute Assessment and Plan: Patient's baseline creatinine appears between 2.1 to 2.5. Creatinine up to 2.8 yesterday a bit higher than her baseline. Her oral lasix dose was recently increased on outpatient basis, suspect this is contributing. Hold off on lasix for today and recheck BMP in AM. Avoid nephrotoxic agents, renally dose medications, monitor urine output. (2) Chronic venous stasis dermatitis: Code(s): I87.2 - Venous insufficiency (chronic) (peripheral) Status: Acute Assessment and Plan: Patient presents with worsening lower extremity swelling, redness, pain x2 months. She has been treated with at least 4 courses of antibiotics in the last 2 months and has not noticed any improvement. Do not suspect this is cellulitis; will dc antibiotics at this time. Discussed plan of care at length. Reiterated the importance of a low-sodium diet, patient initially reports she is adhering well to this and not putting any salt on her food. Discussed that many packaged, fast food, processed foods are naturally high in sodium without putting table salt on them; on further questioning she admits that she has been eating a lot of crackers and potato chips lately. Fluid restriction, low-sodium diet, CLAUDE wraps lower legs, elevate legs. I discussed at length the importance of her following up with a vascular surgeon for management of her chronic lower extremity venous insufficiency. (3) Diastolic dysfunction: Code(s): I51.89 - Other ill-defined heart diseases Status: Chronic Assessment and Plan: Monitor I&Os, daily weights. Low-sodium diet, fluid restricted diet. Continue to monitor fluid status. If Cr is closer to her baseline tomorrow, plan to resume her oral Lasix. (4) Type 2 diabetes mellitus with diabetic polyneuropathy: Qualifiers: Diabetes mellitus terminal operator insulin use: with care home use Qualified Code(s): E11.42 - Type 2 diabetes mellitus with diabetic polyneuropathy; Z79.4 - detention (current) use of insulin Code(s): E11.42 - Type 2 diabetes mellitus with diabetic polyneuropathy Status: Chronic Assessment and Plan: Hgb A1c 6.6. Continue her long-acting insulin and coverage with SSI. Monitor with Accu-Cheks and adjust treatment as needed. (5) Hyperlipidemia LDL goal <70: Code(s): E78.5 - Hyperlipidemia, unspecified Status: Chronic Assessment and Plan: Continue home statin therapy. Subjective Date/time seen: 03/26/20 11:15 Interval history: Ms. Ruiz is a 64yo F admitted for increasing ANASTASIIA lower leg swelling, redness, and pain. She reports her swelling is a bit improved this morning. Legs are not as painful when she gets up to walk. She denies chest pain, shortness of breath, or cough. She is tolerating oral intake without nausea or vomiting. Review of Systems Review of Systems: All systems reviewed & are unremarkable except as noted in HPI and below Exam Narrative: Exam Narrative: General: Female resting comfortably in recliner with legs elevated in no acute distress. HEENT: Normocephalic, EOMI, oral mucosa moist. Cardiovascular: Rate and rhythm are regular. Respiratory: Diminished breath sounds at bilateral bases, lungs are otherwise clear to auscultation. Non-labored breathing. Tolerating room air. Abdomen: Protuberant but soft, nontender, nondistended. Bowel sounds present. Extremities: CLAUDE wraps were on ANASTASIIA lower extremities to the knee, removed for exam. ANASTASIIA lower extremities edematous with chronic venous stasis color changes to ANASTASIIA l
[2020-03-26] MEDS: INSULIN ASPART (*BKC) 100 UNITS/ML SUB-Q (12:09)
[2020-03-26 12:26] LABS: Glucose Point of Care 225 (65-105)
[2020-03-26 17:14] VITALS: BP 102/47; PULSE 67; RESP 18; TEMP 36.3; O2SAT 92
[2020-03-26 17:21] LABS: Glucose Point of Care 190 (65-105)
[2020-03-26 20:17] VITALS: BP 124/58; PULSE 65; RESP 18; TEMP 36.6; O2SAT 91
[2020-03-26] MEDS: INSULIN GLARGINE (*BKC) 100 UNITS/ML 56 UNITS SUB-Q (20:18)
[2020-03-27 01:10] LABS: Glucose Point of Care 296 (65-105)
[2020-03-27 05:36] LABS: Basophils Percent Auto 0.8 % (0.2-1.2); Eosinophils Absolute Auto 0.3 K/mm3 (0-0.3); Eosinophils Percent Auto 5.4 % (0-4.4); Hematocrit 36.7 % (37.0-47.0); Hemoglobin 10.9 g/dL (12.0-15.0); Immature Granulocyte Absolute 0.03 K/mm3 (0.00-0.031); Immature Granulocyte Percent A 0.6 % (0-0.5); Lymphocytes Percent Auto 13.1 % (18.3-44.2); Mean Corpuscular HGB Conc 29.7 g/dl (32-36); Mean Corpuscular Hemoglobin 27.7 pg (26-34); Mean Corpuscular Volume 93.4 fl (80-100); Mean Platelet Volume 12.2 fl (7.4-10.4); Monocytes Absolute Auto 0.3 K/mm3 (0.1-0.6); Neutrophils Percent Auto 74.1 % (45.5-73.1); Platelet Count Result 140 k/mm3 (150-375); Red Blood Count 3.93 M/mm3 (4.2-5.4); Red Cell Distribution Width 14.5 % (11.5-14.5); White Blood Count 5.3 K/mm3 (4.5-10.0)
[2020-03-27 05:38] VITALS: BP 121/45; PULSE 65; RESP 16; TEMP 36.2; O2SAT 91
[2020-03-27 07:05] LABS: Potassium 3.8 mmol/L (3.4-5.0)
[2020-03-27 07:13] LABS: Anion Gap 5 mmol/L (8-16); Blood Urea Nitrogen 39 mg/dL (7-17); Calcium 8.9 mg/dL (8.4-10.2); Carbon Dioxide 32 mmol/L (22-30); Chloride 102 mmol/L (98-107); Estimated CRCL calculation 32 ml/min; Estimated Glomerular Filt Rate 18; Glucose 183 mg/dL (65-105); Magnesium 2.5 mg/dL (1.6-2.3); Sodium 139 mmol/L (137-145)
[2020-03-27 08:08] LABS: Glucose Point of Care 154 (65-105)
[2020-03-27] MEDS: ENOXAPARIN 30 MG/0.3 ML SYRINGE SUB-Q (08:36)
[2020-03-27] MEDS: SIMVASTATIN 20 MG TABLET PO (08:36)
[2020-03-27 12:03] LABS: Glucose Point of Care 198 (65-105)
--- NOTE | 2020-03-27 12:48 | PM.DS ---
DS: Admitting Diagnosis Admitting Diagnosis Admitting Diagnosis: LE swelling and pain DS: Discharge Diagnosis Discharge Diagnosis (1) Acute worsening of stage 3 chronic kidney disease: Code(s): N18.3 - Chronic kidney disease, stage 3 (moderate) Status: Acute Assessment and Plan: Date of Admission 03/25/20 Date of Discharge 03/27/20 Ms. Ruiz is a 64yo F with history of chronic kidney disease, chronic diastolic CHF, insulin-dependent type 2 diabetes mellitus, hyperlipidemia, chronic venous insufficiency presented to the ED for evaluation of increased bilateral lower extremity swelling, redness, pain with ambulation x2 months. She has been told she had cellulitis and has been treated with 4 or more courses of antibiotics over the last 2 months with no improvement. She has had multiple hospital admissions for same. Unfortunately, she admits to not following a sodium prudent diet very well or being able to keep her legs elevated. At this time, it is felt that she does not have cellulitis and that her increased swelling, pain, and skin changes are result of chronic venous insufficiency. She was initially started on IV imipenem from the ED which was discontinued. She will greatly benefit from establishing care with a vascular surgeon as an outpatient. Unfortunately we do not have this service available at our facility. Venous Dopplers 1 month ago at her last admission show no DVT. Her baseline Cr appears to be between 2.1-2.5, Cr on arrival was up to 2.8 slightly above her baseline. Her home Lasix was held and her Cr slightly improved to 2.6 on day of discharge closer to her baseline. She reports that her oral Lasix was recently increased on outpatient basis due to increased swelling. Multiple detailed discussions were held with the patient regarding the importance of following low-sodium diet, Enmanuel wraps and compression stockings, and elevating her legs. Overall, she feels her swelling and pain have improved with this supportive care while at the hospital. She is hemodynamically stable for discharge on 03/27/2020 with instructions to follow-up with her primary care provider this week and at this point it is recommended that she establish care with a vascular surgeon. Patient's baseline creatinine appears between 2.1 to 2.5. Cr 2.8 on arrival, Lasix was held and Cr 2.6 day of discharge. Follow-up with PCP. Her oral lasix dose was recently increased on outpatient basis, suspect this is contributing. (2) Chronic venous stasis dermatitis: Code(s): I87.2 - Venous insufficiency (chronic) (peripheral) Status: Acute Assessment and Plan: Patient presents with worsening lower extremity swelling, redness, pain x2 months. She has been treated with at least 4 courses of antibiotics in the last 2 months and has not noticed any improvement. Do not suspect this is cellulitis; will dc antibiotics at this time. Discussed plan of care at length. Reiterated the importance of a low-sodium diet, patient initially reports she is adhering well to this and not putting any salt on her food. Discussed that many packaged, fast food, processed foods are naturally high in sodium without putting table salt on them; on further questioning she admits that she has been eating a lot of crackers and potato chips lately. Fluid restriction, low-sodium diet, ENMANUEL wraps lower legs, elevate legs. I discussed at length the importance of her following up with a vascular surgeon for management of her chronic lower extremity venous insufficiency. (3) Diastolic dysfunction: Code(s): I51.89 - Other ill-defined heart diseases Status: Chronic Assessment and Plan: Monitor I&Os, daily weights. Low-sodium diet, fluid restricted diet. Resume her oral Lasix at discharge.
== END 2020-03-27 14:02 | disposition home or self-care (01) | DRG 300 ==
LOC: ANHED 21:04 → ANH3MED 23:05
PROVIDERS: Physician Assistant; Admitting Provider Family Medicine; Emergency Provider Emergency Medicine; PCP Internal Medicine; Visit Provider Family Medicine
DX: I87.2 Venous insufficiency (chronic) (peripheral) (principal); I13.0 Hypertensive heart and chronic kidney disease with heart failure and stage 1 through stage 4 chronic kidney disease, or unspecified chronic kidney disease; I50.32 Chronic diastolic (congestive) heart failure; L03.115 Cellulitis of right lower limb; E11.42 Type 2 diabetes mellitus with diabetic polyneuropathy; N18.30 Chronic kidney disease, stage 3 unspecified; E78.5 Hyperlipidemia, unspecified; E11.22 Type 2 diabetes mellitus with diabetic chronic kidney disease
CPT/HCPCS: 36415; 80048; 80053; 83605; 83735; 85025; 86140; 87040; 96365; 96368; 96372; 99285; A9270; G0378; J0743; J1650; J1815; J3370

== ENCOUNTER 2020-04-04 08:23 | Outpatient (RCR) | payer MEDICARE, MEDICAID, SELFPAY ==
[2020-04-04 08:47] VITALS: BMI 58.3
== END 2020-05-25 13:30 | disposition home or self-care (01) ==
LOC: ANHWOC 08:23
PROVIDERS: PCP Internal Medicine; Visit Provider Internal Medicine
DX: S80.822D Blister (nonthermal), left lower leg, subsequent encounter (principal); L08.9 Local infection of the skin and subcutaneous tissue, unspecified; I89.0 Lymphedema, not elsewhere classified
CPT/HCPCS: 29581; A9270

== ENCOUNTER 2020-04-07 15:42 | Emergency (ER) | payer MEDICARE, MEDICAID, SELFPAY ==
[2020-04-07] VITALS (15 sets, daily range): BP systolic 111–169; BP diastolic 53–139; PULSE 79–99; RESP 19–30; TEMP 37–38.2; O2SAT 80–94
--- NOTE | ~2020-04-07 | XR_ITS ---
EXAMINATION: XR chest 2V DATE: 04/07/2020 17:02 INDICATION: Shortness of breath and fever. TECHNIQUE: Frontal and lateral views of the chest were obtained. COMPARISON: Chest single view 07/08/2019 FINDINGS: There is no pneumonia, pleural effusion, or pneumothorax. Cardiomegaly is noted. There are screws in proximal left humerus. There is mild chronic anterior wedging of multiple thoracic vertebra l bodies. IMPRESSION: 1. Cardiomegaly. Reviewed, dictated and finalized at location A. IMPRESSION: 1. Cardiomegaly.
--- NOTE | 2020-04-07 16:48 | ECG_ITS ---
Measurements Intervals [place] Rate: 85 P: 7 NV: 200 QRS: 87 QRSD: 85 T: -6 QT: 346 QTc: 412 Interpretive Statements SINUS RHYTHM INCOMPLETE RIGHT BUNDLE BRANCH BLOCK LOW QRS VOLTAGE IN PRECORDIAL LEADS BORDERLINE ST-T WAVE ABNORMALITY- ANT/INF LEADS BASELINE ARTIFACT- I, II, III, AVR, AVL, AVF, V1-V6 BORDERLINE ECG Electronically Signed On 04-08-2020 7:01:04 CDT by Kenny Ramos D.O.
[2020-04-07 17:42] LABS: Hematocrit 38.8 % (37.0-47.0); Hemoglobin 11.6 g/dL (12.0-15.0); Mean Corpuscular HGB Conc 29.9 g/dl (32-36); Mean Corpuscular Hemoglobin 28.3 pg (26-34); Mean Corpuscular Volume 94.6 fl (80-100); Mean Platelet Volume 12.1 fl (7.4-10.4); Platelet Count Result 131 k/mm3 (150-375); Red Cell Distribution Width 14.9 % (11.5-14.5); White Blood Count 9.9 K/mm3 (4.5-10.0)
--- NOTE | 2020-04-07 17:46 | ED.FEVER ---
HPI - Fever General Chief Complaint: Fever Stated Complaint: weakness Time Seen by Provider: 04/07/20 16:09 Source: patient Mode of arrival: EMS Limitations: no limitations History of Present Illness HPI Narrative: Patient is a 64-year-old female who presents by EMS. Patient reports home health was there changing dressings on bilateral legs when she began to get chilled and shaking. Per patient she had fever and was sent to the ED. She denies other complaints. She denies cough, chest pain or shortness of breath. Patient has a history of COPD normal O2 sats in the low 90s. Patient does not wear home O2. Patient denies complaints at this time and reports that she feels well. MD elicited complaint: fever, malaise and weakness Related Data Home Medications Medication Instructions Recorded Confirmed insulin glargine 100 unit/mL (3 56 unit SUB-Q HS ml 08/20/19 03/31/20 mL) subcutaneous pen fenofibrate 54 mg PO DAILY 02/25/20 03/31/20 albuterol sulfate 2 puff INHALATION PRN PRN 03/26/20 03/31/20 furosemide 40 mg PO DAILY 03/26/20 03/31/20 Allergies Allergy/AdvReac Type Severity Reaction Status Date / Time adhesive tape Allergy Unknown RASH Verified 04/07/20 16:00 atorvastatin Allergy Unknown rash Verified 04/07/20 16:00 ciprofloxacin Allergy Unknown rash Verified 04/07/20 16:00 nitrofurantoin Allergy Unknown rash Verified 04/07/20 16:00 rosuvastatin Allergy Unknown Rash Verified 04/07/20 16:00 Penicillins AdvReac Intermediate Rash Verified 04/07/20 16:00 Review of Systems Review of Systems: Narrative: CONSTITUTIONAL: Reports fever and chills EYES: Denies visual changes, redness, or discharge. ENT: Denies rhinorrhea, congestion, sore throat, or otalgia. CARDIOVASCULAR: Denies chest pain, palpitations, or edema. RESPIRATORY: Denies cough or dyspnea. GASTROINTESTINAL: Denies abdominal pain, nausea, vomiting, or diarrhea. GENITOURINARY: Denies dysuria or hematuria. SKIN: Denies rash or itching. MUSCULOSKELETAL: Denies back pain, joint pain, or myalgia. NEUROLOGIC: Denies headache, numbness, dizziness, or weakness. PSYCHIATRIC: Denies anxiety or depression. [facility] Past Medical History Medical History Colon polyps Diastolic dysfunction DVT (deep venous thrombosis) Kidney stones Lymphedema Personal history of pulmonary embolism Pure hypercholesterolemia, unspecified Recurrent postcoital urinary tract infection Sleep apnea 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 2 diabetes mellitus with stage 3 chronic kidney disease Venous insufficiency Vitamin D deficiency, unspecified Surgical History Surgical History H/O colonoscopy H/O hysterectomy for benign disease H/O thymectomy History of cholecystectomy History of renal stent S/P carpal tunnel release S/P removal of ovarian cyst Family History Family History Mother Family history of diabetes mellitus in first degree relative Patient's mother is Diabetes mellitus Father Family history of heart disease in male family member before age 55 Family history of coronary artery disease Social History Social History Social History: Patient lives at home alone. She designates her daughter, Ioana Castillo, as her surrogate MDM. Her PCP is Dr. Rooney. She wishes to be a full code Smoking packs per day: 1 Smoking cigarettes per day: 20.0 Years smoked: 40 Smoking pack-years: 40.00 Smoking status: Never smoker Tobacco type: cigarettes Second hand tobacco smoke exposure: Yes Smoking end date: 06/17/14 Alcohol intake: never Substance use: never Substance use type: does not use Additional living arrangements comments: Lives alone in apartment Gender identity (if verbalized by the patient): Female
[2020-04-07 17:53] LABS: INR 1.1; Partial Thromboplastin Time 26.4 SECONDS (22.3-36.8)
[2020-04-07 18:04] LABS: Lactic Acid Reflex 1.6 mmol/L (0.7-2.1)
[2020-04-07 18:05] LABS: Alanine Aminotransferase 14 U/L (4-35); Albumin Level 3.8 g/dL (3.5-5.1); Alkaline Phosphatase 97 U/L (38-126); Anion Gap 8 mmol/L (8-16); Aspartate Amino Transferase 21 U/L (14-36); Bilirubin,Total 0.6 mg/dL (0.2-1.3); Blood Urea Nitrogen 50 mg/dL (7-17); CRP 4.4 mg/dL (<1.0); Calcium 8.8 mg/dL (8.4-10.2); Carbon Dioxide 30 mmol/L (22-30); Chloride 100 mmol/L (98-107); Estimated CRCL calculation 27 ml/min; Estimated Glomerular Filt Rate 16; Glucose 168 mg/dL (65-105); Potassium 3.6 mmol/L (3.4-5.0); Sodium 138 mmol/L (137-145)
[2020-04-07 18:11] LABS: Platelet Estimate Decreased (Adequate)
== END 2020-04-07 20:35 | disposition home or self-care (01) ==
PROVIDERS: Emergency Provider Nurse Practitioner; PCP Internal Medicine
DX: R50.9 Fever, unspecified (principal); E11.22 Type 2 diabetes mellitus with diabetic chronic kidney disease; N18.30 Chronic kidney disease, stage 3 unspecified; J44.9 Chronic obstructive pulmonary disease, unspecified; E78.00 Pure hypercholesterolemia, unspecified; G47.30 Sleep apnea, unspecified; E11.43 Type 2 diabetes mellitus with diabetic autonomic (poly)neuropathy; Z87.891 Personal history of nicotine dependence; Z86.010 Personal history of colon polyps; Z86.718 Personal history of other venous thrombosis and embolism; Z87.442 Personal history of urinary calculi; Z86.711 Personal history of pulmonary embolism; Z79.4 Long term (current) use of insulin
CPT/HCPCS: 36415; 71046; 80053; 83605; 85025; 85610; 85730; 86140; 93005; 99283

== ENCOUNTER 2020-04-09 00:06 | Inpatient (IN) | payer MEDICARE, MEDICAID, SELFPAY ==
[2020-04-09] VITALS (42 sets, daily range): BP systolic 82–148; BP diastolic 33–81; PULSE 62–96; RESP 13–25; TEMP 36.3–37.2; O2SAT 88–100; BMI 60.7
--- NOTE | ~2020-04-09 | CT_ITS ---
EXAMINATION: CT abdomen pelvis wo con DATE: 04/09/2020 02:28 INDICATION: Abdominal pain TECHNIQUE: Computed tomography (CT) of the abdomen and pelvis was performed without intravenous contr ast. Automated exposure control and iterative reconstruction technique were employed. The dose-length product was 1735.39 mGy-cm. COMPARISON: 04/09/2020 and 07/09/2008 FINDINGS: Bibasilar atelectasis. Cardiomegaly. No pericardial or pleural effusion. Diffuse hepatic steatosis. G allbladder is not visualized and likely surgically absent. Spleen, pancreas and bilateral adrenal gla nds are normal. Bilateral renal atrophy with scattered cortical scarring at both kidneys. Bilateral nephrolithiasis w ith one stone at the lower pole of the right kidney measuring up to 9 mm and 5 stones in the left kid rashaun the largest measuring up to 1.6 cm. No hydronephrosis and no stones seen along the course of the normal caliber bilateral ureters. There is subtle stranding about the left renal pelvis. Johnson cathet er in the bladder. The uterus is not identified and has likely been surgically resected. No change since 2008 in a li rashel benign 5.6 cm cystic right adnexal lesion. No significant interval change in a couple additional likely benign fluid attenuation cystic lesions in the left pelvis measuring 2.8 cm and 1.9 cm which can be seen both slightly smaller dating back to at least 2008. Status post appendectomy with a coupl e surgical clips near the tip of the cecum. No abnormal bowel wall thickening or obstruction. No free intraperitoneal gas or fluid. No pathologically enlarged abdominal or pelvic lymphadenopathy. Subcut aneous edema along the bilateral flanks. There is skin thickening and stranding in the underlying sub cutaneous fat along the anterior pelvic wall consistent with panniculitis. Severe thoracic and mild l umbar spondylosis with chronic mild anterior wedging at T6 and T8 and minimal anterior wedging at T7 and T11. IMPRESSION: 1. Lateral nonobstructing nephrolithiasis with no hydronephrosis. 2. Johnson catheter in the bladder and mild stranding about the left renal pelvis suggesting possibilit y of cystitis with ascending urinary tract infection and left pyelitis. Correlate with urinalysis. 3. Panniculitis. Reviewed, dictated and finalized at location [facility]. IMPRESSION: 1. Lateral nonobstructing nephrolithiasis with no hydronephrosis. 2. Johnson catheter in the bladder and mild stranding about the left renal pelvis suggesting possibility of cystitis with ascending urinary tract infection and left pyelitis. Correlate with urinalysis. 3. Panniculitis.
--- NOTE | ~2020-04-09 | CT_ITS ---
EXAMINATION: CT brain wo con DATE: 04/12/2020 12:24 INDICATION: Discrepancy in pupil size TECHNIQUE: Computed tomography (CT) of the head was performed without intravenous contrast. The mA wa s adjusted according to patient size. Iterative reconstruction technique was employed. Exam dose: 68 1.00 mGy-cm total exam DLP. COMPARISON: None FINDINGS: No intracranial mass lesion or hemorrhage or cerebrovascular accident is detected. No midli ne shift or mass effect. Normal ventricular size. No subdural or epidural hematoma. Cerebral atherosclerosis. Bilateral mastoid effusions are noted. The paranasal sinuses appear normal. No fracture or bone destruction of the cranial vault. IMPRESSION: No acute intracranial finding Reviewed, dictated and finalized at [facility]. Reviewed, dictated and finalized at location [facility].
--- NOTE | ~2020-04-09 | XR_ITS ---
EXAMINATION: XR chest 1V portable DATE: 04/09/2020 01:21 INDICATION: Dyspnea and weakness TECHNIQUE: frontal view of the chest was obtained. COMPARISON: Chest radiograph dated 04/07/2020 and 07/08/2019 FINDINGS: Lung volumes are decreased with mild elevation the right hemidiaphragm. Mild bibasilar atelectasis. N o pulmonary edema, pleural effusion or pneumothorax. Cardiomegaly. Enlargement of the central pulmona ry arteries consistent with pulmonary arterial hypertension. Old healed fracture with a couple lag sc rews with washers at the left humeral head. Severe thoracic spondylosis. IMPRESSION: 1. Small lung volumes with mild bibasilar atelectasis. 2. Cardiomegaly and enlargement of the central pulmonary arteries which could be seen with pulmonary arterial hypertension. Reviewed, dictated and finalized at location A. IMPRESSION: 1. Small lung volumes with mild bibasilar atelectasis. 2. Cardiomegaly and enlargement of the central pulmonary arteries which could b e seen with pulmonary arterial hypertension.
--- NOTE | ~2020-04-09 | US_ITS ---
EXAMINATION: US right upper quadrant EXAM DATE: 04/09/2020 14:22 INDICATION: Abnormal liver function. Cholecystectomy. TECHNIQUE: Multiple grayscale and Doppler images of the abdomen right upper quadrant were obtained (b y a technologist who performed the scan) and subsequently reviewed. Correlation is made to CT from sa me date. FINDINGS: The pancreatic head and body are normal in appearance. The pancreatic tail is not visualized. Liver surface undulations, possible cirrhosis. There are no focal liver lesions identified. There is no evidence of intrahepatic biliary duct dilation. Portal venous flow was seen in the hepatopedal, nor mal direction and has normal Doppler waveform. No right-sided hydronephrosis. Common bile duct measures 6 mm, which is normal. The gallbladder fossa is unremarkable. IMPRESSION: 1. Possible cirrhosis. Reviewed, dictated and finalized at location A. IMPRESSION: 1. Possible cirrhosis.
--- NOTE | 2020-04-09 00:23 | ECG_ITS ---
Measurements Intervals [place] Rate: 19 P: 55 FL: 213 QRS: -32 QRSD: 97 T: 44 QT: 342 QTc: 197 Interpretive Statements SINUS BRADYCARDIA WITH FIRST DEGREE AV BLOCK FREQUENT ATRIAL PREMATURE COMPLEXES LEFT AXIS DEVIATION INCOMPLETE RIGHT BUNDLE BRANCH BLOCK LOW QRS VOLTAGE IN PRECORDIAL LEADS MINIMAL Q WAVES- INFERIOR LEADS BORDERLINE T WAVE ABNORMALITY- ANTERIOR LEADS BASELINE ARTIFACT- I, II, III, AVR, AVL, AVF, V6 ABNORMAL ECG Electronically Signed On 04-09-2020 7:35:29 CDT by Kenny Ramos D.O.
[2020-04-09] MEDS: SODIUM CHLORIDE 0.9% IV 1,000 ML 999 ML IV CONT ×3 (00:24→04:27)
--- NOTE | 2020-04-09 00:29 | ED.GENADULT ---
HPI - General Adult General Chief complaint: Weakness Stated complaint: weakness Source: RN notes reviewed History of Present Illness HPI narrative: Patient presents to emergency department from home via EMS for weakness. Patient states that she has been feeling progressively weak for the last 2 days. She states that this evening she felt like she was having a hypoglycemic episode and called EMS. She states she had not been eating very much yesterday as she had just not been feeling well and been feeling mildly nauseous. She denies having any fevers or chills chest pain shortness of breath cough abdominal pain vomiting diarrhea or any other symptoms. Patient was seen in the emergency department 2 days ago with a negative work-up at that time and discharged home.. When EMS arrived the patient states she has been feeling better after eating and had gone to have EMS help her out of the chair when was noticed that she began became weak and her blood pressure decreased Related Data Home Medications Medication Instructions Recorded Confirmed insulin glargine 100 unit/mL (3 56 unit SUB-Q HS ml 08/20/19 03/31/20 mL) subcutaneous pen fenofibrate 54 mg PO DAILY 02/25/20 03/31/20 albuterol sulfate 2 puff INHALATION PRN PRN 03/26/20 03/31/20 furosemide 40 mg PO DAILY 03/26/20 03/31/20 acetaminophen 650 mg 650 mg PO Q8H tablet 04/08/20 tablet,extended release Allergies Allergy/AdvReac Type Severity Reaction Status Date / Time adhesive tape Allergy Unknown RASH Verified 04/07/20 16:00 atorvastatin Allergy Unknown rash Verified 04/07/20 16:00 ciprofloxacin Allergy Unknown rash Verified 04/07/20 16:00 nitrofurantoin Allergy Unknown rash Verified 04/07/20 16:00 rosuvastatin Allergy Unknown Rash Verified 04/07/20 16:00 Penicillins AdvReac Intermediate Rash Verified 04/07/20 16:00 Review of Systems Review of Systems: Narrative: Gen.: Denies fevers or chills Eyes: Denies eye pain or visual change ENT: Denies congestion Respiratory: Denies shortness of breath or cough CV: Denies chest pain or palpitations GI: Denies abdominal pain nausea, emesis or diarrhea denies burning, urgency, frequency or hematuria Musculoskeletal: Denies back pain or muscle pain Neuro:see HPI Skin: Denies rash Except as documented, all other systems reviewed and negative PMF Past Medical History Medical History Colon polyps Diastolic dysfunction DVT (deep venous thrombosis) Kidney stones Lymphedema Personal history of pulmonary embolism Pure hypercholesterolemia, unspecified Recurrent postcoital urinary tract infection Sleep apnea 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 2 diabetes mellitus with stage 3 chronic kidney disease Venous insufficiency Vitamin D deficiency, unspecified Surgical History Surgical History H/O colonoscopy H/O hysterectomy for benign disease H/O thymectomy History of cholecystectomy History of renal stent S/P carpal tunnel release S/P removal of ovarian cyst Family History Family History Mother Family history of diabetes mellitus in first degree relative Patient's mother is Diabetes mellitus Father Family history of heart disease in male family member before age 55 Family history of coronary artery disease Social History Social History Social History: Patient lives at home alone. She designates her daughter, Ioana Castillo, as her surrogate MDM. Her PCP is Dr. Rooney. She wishes to be a full code Smoking packs per day: 1 Smoking cigarettes per day: 20.0 Years smoked: 40 Smoking pack-years: 40.00 Smoking status: Never smoker Tobacco type: cigarettes Second hand tobacco smoke exposure: Yes Smoking end date: 06/17/14 Alcohol intake: never
[2020-04-09 00:47] LABS: Alveolar/Arterial O2 Gradient 123.2 mmHg; Base Excess ABG -4.7 mEq/l (+/-2.0); Fractional Inspired Oxygen 40 %; HCO3 ABG 24.8 mEq/l (22.0-26.0); Oxygen Content ABG 14.7 %vol (16.0-22.0); Oxygen Saturation ABG 92.2 % (95.0-100.0); Oxyhemoglobin 91.2 % THb (90.0-100.0); PO2 ABG 80.8 mmHg (80.0-100.0); PO2 FiO2 Ratio Arterial Blood 2.02 %; Total Hemoglobin 11.4 g/dL (12.0-18.0)
[2020-04-09 00:48] LABS: pH ABG 7.164 (7.350-7.450)
[2020-04-09 00:49] LABS: Device NASAL CANNULA; Modified Allen's Test Pass; PCO2 ABG 70.6 mmHg (35.0-45.0); Site Drawn LEFT RADIAL
[2020-04-09 02:01] LABS: Basophils Percent Auto 0.2 % (0.2-1.2); Eosinophils Percent Auto 0.1 % (0-4.4); Hematocrit 33.5 % (37.0-47.0); Hemoglobin 10.1 g/dL (12.0-15.0); Immature Granulocyte Absolute 0.07 K/mm3 (0.00-0.031); Immature Granulocyte Percent A 0.7 % (0-0.5); Lymphocytes Absolute Auto 0.61 K/mm3 (0.9-3.2); Mean Corpuscular HGB Conc 30.1 g/dl (32-36); Mean Corpuscular Hemoglobin 28.3 pg (26-34); Mean Corpuscular Volume 93.8 fl (80-100); Mean Platelet Volume 13.3 fl (7.4-10.4); Monocytes Absolute Auto 0.7 K/mm3 (0.1-0.6); Monocytes Percent Auto 7.1 % (2.6-8.5); Neutrophils Absolute Auto 8.7 K/mm3 (1.3-6.7); Neutrophils Percent Auto 85.9 % (45.5-73.1); Platelet Count Result 123 k/mm3 (150-375); Red Blood Count 3.57 M/mm3 (4.2-5.4); Red Cell Distribution Width 14.9 % (11.5-14.5); White Blood Count 10.1 K/mm3 (4.5-10.0)
[2020-04-09 02:05] LABS: Alanine Aminotransferase 245 U/L (4-35); Albumin Level 3.5 g/dL (3.5-5.1); Alkaline Phosphatase 77 U/L (38-126); Anion Gap 11 mmol/L (8-16); Aspartate Amino Transferase 557 U/L (14-36); Bilirubin,Total 0.6 mg/dL (0.2-1.3); Blood Urea Nitrogen 56 mg/dL (7-17); Calcium 8.3 mg/dL (8.4-10.2); Carbon Dioxide 24 mmol/L (22-30); Chloride 101 mmol/L (98-107); Estimated CRCL calculation 19 ml/min; Estimated Glomerular Filt Rate 9; Glucose 251 mg/dL (65-105); INR 1.3; Lactic Acid Reflex 1.6 mmol/L (0.7-2.1); Partial Thromboplastin Time 30.1 SECONDS (22.3-36.8); Potassium 4.1 mmol/L (3.4-5.0); Prothrombin Time 16.1 Seconds (11.1-14.7); Sodium 136 mmol/L (137-145)
[2020-04-09 02:35] LABS: Add Urine Microscopic? YES; Appearance Urine Turbid (Clear); Bilirubin Urine Negative (Negative); Blood Urine 1+ (Negative); Color Urine Yellow (Yellow); Glucose Urine UA Negative (Negative); Ketones Urine Negative (Negative); Leukocyte Esterase Ur 2+ LEU/UL (Negative); Nitrate Urine Negative (Negative); Protein Urine 3+ mg/dL (Negative); RBC Urine >75 /hpf (0-2); Squamous Epithelial Cell Urine Many /hpf (Few); Urobilinogen Urine Negative mg/dL (<2.0); WBC Clumps Urine Present /HPF; WBC Urine >75 /hpf
[2020-04-09 02:48] LABS: NT Pro B Type Natriuretic Pept 8320 PG/ML (5-100)
--- NOTE | 2020-04-09 02:50 | PC.NURSE ---
Temp manrique inserted without difficulty.
[2020-04-09 03:20] LABS: Alveolar/Arterial O2 Gradient 132.9 mmHg; Base Excess ABG -7.8 mEq/l (+/-2.0); Fractional Inspired Oxygen 40 %; HCO3 ABG 21.3 mEq/l (22.0-26.0); Oxygen Content ABG 14.8 %vol (16.0-22.0); Oxygen Saturation ABG 92.6 % (95.0-100.0); Oxyhemoglobin 91.2 % THb (90.0-100.0); PO2 FiO2 Ratio Arterial Blood 2.05 %; Total Hemoglobin 11.5 g/dL (12.0-18.0)
[2020-04-09 03:21] LABS: PCO2 ABG 61.1 mmHg (35.0-45.0); Site Drawn LEFT RADIAL
[2020-04-09 03:22] LABS: Device BIPAP; Expiratory Pressure 8 cmH2O; Inspiratory Pressure 14 cmH2O; Modified Allen's Test Pass
[2020-04-09] MEDS: SODIUM CHLORIDE 0.9% IV 1,000 ML 75 ML IV CONT ×2 (06:41→19:48)
--- NOTE | 2020-04-09 07:59 | ADMGEN ---
This patient, Rosario Ruiz, was admitted to Intensive Care Unit-12. Patient/family oriented to hospital policies and general routines including ID bracelet, bed and alarms, visiting hours, pain management, procedures, bathroom and other care routines, personal items, smoking policy, room service/diet, and visiting hours. Information on how to activate the Rapid Response Team has been discussed. Patient/Family are encouraged to report perceived risks to care and to ask questions if they do not understand what they are told or what they should do.
[2020-04-09] MEDS: ALBUTEROL SULFATE NEB 2.5 MG/0.5 ML INH INHALATION ×3 (08:48→20:25)
[2020-04-09] MEDS: IPRATROPIUM BR 0.02% INH SOLN 0.5 MG/2.5 ML VIAL INHALATION ×3 (08:48→20:25)
[2020-04-09 09:14] LABS: Alveolar/Arterial O2 Gradient 66.3 mmHg; Base Excess ABG -4.7 mEq/l (+/-2.0); Carboxyhemoglobin 0.9 % THb (0-2.0); Fractional Inspired Oxygen 40 %; HCO3 ABG 26.5 mEq/l (22.0-26.0); Methemoglobin ABG 0.4 %THb (0-1.5); Oxygen Content ABG 18.3 %vol (16.0-22.0); Oxyhemoglobin 96.2 % THb (90.0-100.0); PO2 ABG 123.2 mmHg (80.0-100.0); PO2 FiO2 Ratio Arterial Blood 3.08 %; Reduced Hemoglobin 2.5 %THb (0-5.0); Total Hemoglobin 13.4 g/dL (12.0-18.0)
[2020-04-09 09:17] LABS: pH ABG 7.121 (7.350-7.450)
[2020-04-09 09:18] LABS: Device NON-INVASIVE VENT; Modified Allen's Test Pass; Non-Invasive Vent Rate 20 /MIN; PCO2 ABG 83.2 mmHg (35.0-45.0); Site Drawn RIGHT RADIAL
[2020-04-09 09:19] LABS: Non-Invasive Expiratory Pressure 12 CMH2O
[2020-04-09 11:11] LABS: Alveolar/Arterial O2 Gradient 76.6 mmHg; Base Excess ABG -5.6 mEq/l (+/-2.0); Fractional Inspired Oxygen 30 %; HCO3 ABG 23.4 mEq/l (22.0-26.0); Oxygen Content ABG 14.4 %vol (16.0-22.0); Oxyhemoglobin 88.9 % THb (90.0-100.0); PO2 ABG 62.1 mmHg (80.0-100.0); PO2 FiO2 Ratio Arterial Blood 2.07 %; Total Hemoglobin 11.5 g/dL (12.0-18.0)
[2020-04-09 11:13] LABS: Oxygen Saturation ABG 85.1 % (95.0-100.0); pH ABG 7.181 (7.350-7.450)
[2020-04-09 11:14] LABS: Device NON-INVASIVE VENT; Modified Allen's Test Pass; Site Drawn RIGHT RADIAL
[2020-04-09 11:15] LABS: Non-Invasive Vent Rate 20 /MIN
[2020-04-09 11:18] LABS: Non-Invasive Expiratory Pressure 8 CMH2O
[2020-04-09 12:08] LABS: Glucose Point of Care 186 (65-105)
--- NOTE | 2020-04-09 13:40 | WPDCNINT ---
Assessment and Plan Assessment and plan (1) Acute renal failure: Code(s): N17.9 - Acute kidney failure, unspecified Status: Acute Assessment and Plan: likely prerenal with significant hypotension. Today repeat lab showed worsening reddening. Nephrology has been consulted with pending recommendations. CT abdomen pelvis showed nonobstructive nephrolithiasis with no hydronephrosis. Question of cystitis with ascending urinary tract infection. Minimal urine output. She has received IV fluid in the emergency department and currently has been receiving fluids as well. (2) Acute respiratory failure with hypoxia and hypercapnia: Code(s): J96.01 - Acute respiratory failure with hypoxia; J96.02 - Acute respiratory failure with hypercapnia Status: Acute Assessment and Plan: Unclear etiology. Minimal breath sounds bilaterally with history of COPD. Likely as a result of COPD exacerbation. Continue BiPAP with AVAPS settings. She may be having metabolic component because of her acute renal failure. Continue to monitor ABG. I will give her few hours break later in the afternoon but she will be placed back on BiPAP overnight to see if she can be weaned off tomorrow morning. It is unclear about her baseline pCO2 as she is morbidly obese and might be having some degree of obesity hypoventilation. (3) Elevated liver enzymes: Code(s): R74.8 - Abnormal levels of other serum enzymes Status: Acute Assessment and Plan: Continue to monitor. Ultrasound of the right upper quadrant will be ordered. CT abdomen pelvis did not show any significant biliary pathology. (4) Acute dehydration: Code(s): E86.0 - Dehydration Status: Acute Assessment and Plan: Continue IV fluid hydration. (5) Obesity, morbid, BMI 50 or higher: Code(s): E66.01 - Morbid (severe) obesity due to excess calories Status: Acute Assessment and Plan: I would encourage her to lose weight later when her respiratory status improved. (6) Type 2 diabetes mellitus with diabetic polyneuropathy: Qualifiers: Diabetes mellitus ad terminal makeup operator insulin use: with ad terminal makeup operator use Qualified Code(s): E11.42 - Type 2 diabetes mellitus with diabetic polyneuropathy; Z79.4 - group home (current) use of insulin Code(s): E11.42 - Type 2 diabetes mellitus with diabetic polyneuropathy Status: Chronic Assessment and Plan: Continue insulin sliding scale. Continue to monitor Accu-Cheks closely. (7) Sleep apnea: Qualifiers: Sleep apnea type: obstructive Qualified Code(s): G47.33 - Obstructive sleep apnea (adult) (pediatric) Code(s): G47.30 - Sleep apnea, unspecified Status: Acute Assessment and Plan: Seems to have obstructive sleep apnea but not very compliant to the CPAP use. (8) Diastolic dysfunction: Code(s): I51.89 - Other ill-defined heart diseases Status: Chronic Assessment and Plan: Does not appear to be in fluid overload. Continue to monitor. Lasix if indicated based on her fluid status. (9) COPD exacerbation: Code(s): J44.1 - Chronic obstructive pulmonary disease with (acute) exacerbation Status: Acute Assessment and Plan: Start steroid. Wean steroid depending upon her clinical response. Continue bronchodilators. (10) Morbid obesity: Code(s): E66.01 - Morbid (severe) obesity due to excess calories Status: Acute Assessment and Plan: Would encourage her to lose some weight once her respiratory status improved. (11) Obesity hypoventilation syndrome: Code(s): E66.2 - Morbid (severe) obesity with alveolar hypoventilation Status: Acute Assessment and Plan: It is unclear as far as her baseline pCO2 is concerned. She probably have metabolic component to her acidosis and might be having some chron
[2020-04-09 14:49] LABS: Urea Random Urine 215 MG/DL
[2020-04-09 14:55] LABS: Sodium Urine Random 78 meq/L
[2020-04-09] MEDS: methylPREDNISolone SOD SUCC 125 MG VIAL 60 MG IV PUSH ×2 (14:56→21:39)
--- NOTE | 2020-04-09 16:23 | PM.IMHP ---
H&P: HPI History of Present Illness Date/Time: 04/09/20 16:23 Chief complaint: acute renal failure/acure respiratory failure w hy Narrative: Rosario Ruiz is a 64 year old female with history of diastolic CHF, COPD, history of DVT/PE, history of kidney stone, chronic lymphedema, history of chronic venous insufficiency, diabetes mellitus, obstructive sleep apnea and hyperlipidemia, couple of days ago she had a temperature and she came into ED but was discharged back to the assisted living. Yesterday she was sob and her sugars were running high and she felt unwell. She hit the life alert button and the assisted living facility brought her to ED for further evaluation. Pt is on BIPAP presently for SOB and is being monitored for acute respiratory failure with hypoxia and hypercapnia, elevated liver enzymes, acute dehydration, ARF and urinary tract infection. Pt is SOB at rest so history taken mainly from daughter. Pt seen earlier in the day at 1015 Am in ICU. Review of Systems Review of Systems: ROS unobtainable: Yes unobtainable due to medical condition PMFSH Past Medical History Medical History Colon polyps Diastolic dysfunction DVT (deep venous thrombosis) Kidney stones Lymphedema Personal history of pulmonary embolism Pure hypercholesterolemia, unspecified Recurrent postcoital urinary tract infection Sleep apnea 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 2 diabetes mellitus with stage 3 chronic kidney disease Venous insufficiency Vitamin D deficiency, unspecified Surgical History Surgical History H/O colonoscopy H/O hysterectomy for benign disease H/O thymectomy History of cholecystectomy History of renal stent S/P carpal tunnel release S/P removal of ovarian cyst Family History Family History Mother Family history of diabetes mellitus in first degree relative Patient's mother is Diabetes mellitus Father Family history of heart disease in male family member before age 55 Family history of coronary artery disease Social History Social History Social History: Patient lives at home alone. She designates her daughter, Ioana Castillo, as her surrogate MDM. Her PCP is Dr. Rooney. She wishes to be a full code Smoking packs per day: 1 Smoking cigarettes per day: 20.0 Years smoked: 40 Smoking pack-years: 40.00 Smoking status: Never smoker Tobacco type: cigarettes Second hand tobacco smoke exposure: Yes Smoking end date: 06/17/14 Alcohol intake: never Substance use: never Substance use type: does not use Additional living arrangements comments: Lives alone in apartment Gender identity (if verbalized by the patient): Female Spiritual care concerns: No Agree to blood products: Yes Meds Home Medications and Allergies Home Medications Medication Instructions Recorded Confirmed Type simvastatin 20 mg tablet 20 mg PO DAILY #90 tablet 07/13/19 04/09/20 Rx insulin glargine 100 unit/mL (3 56 unit SUB-Q HS ml 08/20/19 04/09/20 History mL) subcutaneous pen tramadol 50 mg tablet 50 mg PO Q8H PRN #90 tablet 12/21/19 04/09/20 Rx fenofibrate 54 mg PO DAILY 02/25/20 04/09/20 History blood sugar diagnostic #400 each 03/10/20 04/09/20 Rx albuterol sulfate 2 puff INHALATION PRN PRN 03/26/20 04/09/20 History furosemide 40 mg PO DAILY 03/26/20 04/09/20 History guaifenesin [Mucinex] 600 mg PO BID 4 Days #8 tablet 03/27/20 04/09/20 Rx acetaminophen 650 mg 650 mg PO Q8H tablet 04/08/20 04/09/20 History tablet,extended release insulin lispro 100 unit/mL See Rx Instructions .ROUTE 04/08/20 04/09/20 Rx subcutaneous pen .COMPLEX #15 ml Allergies Allergy/AdvReac Type Severity Reaction Status Date / Time adhesive tape Allergy Unknown
[2020-04-09 18:08] LABS: Glucose Point of Care 191 (65-105)
--- NOTE | 2020-04-09 19:05 | PM.CNNEP ---
Assessment and Plan Assessment and plan (1) Acute renal failure: Code(s): N17.9 - Acute kidney failure, unspecified Status: Acute Assessment and Plan: etiology?? marked decline in the last 48 hours from her last ER visit suspect due to relatively hypotension, pre-renal factors, ongoing use of diuretics and possible UTI disease progression is possible but seems to rapid of a decline follow repeat labs and UOP given her advanced CKD at baseline, remains at risk for SR. 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/dialysis (2) Chronic kidney disease, stage IV (severe): Code(s): N18.4 - Chronic kidney disease, stage 4 (severe) Status: Chronic Assessment and Plan: baseline creatinine ~ 2.0 - 2.5mg/dl in the last year secondary to HTN, diabetes, AMAIRANI/obesity, and vascular disease (3) Acute respiratory failure with hypoxia and hypercapnia: Code(s): J96.01 - Acute respiratory failure with hypoxia; J96.02 - Acute respiratory failure with hypercapnia Status: Acute Assessment and Plan: complicated by history of COPD and AMAIRANI and likely obesity hypoventilation syndrome on BIPAP therapy follow ABGs and wean as tolerated (4) Urinary tract infection: Code(s): N39.0 - Urinary tract infection, site not specified Status: Acute Assessment and Plan: admission UA highly suggestive playing a role with #1(?) on antibiotics follow-up on urine culture (5) Elevated liver enzymes: Code(s): R74.8 - Abnormal levels of other serum enzymes Status: Acute Assessment and Plan: due to relative hypotension(?) RUQ ultrasound with evidence of liver cirrhosis follow trend (6) Diabetes: Code(s): E11.9 - Type 2 diabetes mellitus without complications Status: Acute Assessment and Plan: follow accuchecks glycemic control Long and extensive discussion (> 20 minutes) with patient regarding her worsening kidney disease and suboptimal urine output...discussed that she may require renal replacement therapy/dialysis if she has recurrent issues with worsening acidosis, volume overload, critical electrolytes....etc. and she seemed to voice understanding. Will continue to follow. History of Present Illness Reason for Consult Consult date: 04/09/20 Reason for consult: acute renal failure (on chronic kidney disease) Chief Complaint Chief complaint: acute renal failure/acure respiratory failure w hy History of Present Illness Narrative: The patient is a 64 year old female with a past medical history as outlined below who presented to [facility] ER with complaints of not feeling well associated with generalized weakness. Apparently, from review of the records and discussion with the patient, she had not been feeling well for the past few days. She actually was seen at [facility] Emergency room approximately 48 hr ago what is the same symptoms but was discharged back to her assisted living facility as her workup and evaluation at that time was negative. In any case, she stated she had been feeling more short of breath than usual and noted that she her blood sugars running higher than normal as well. As she had already not been feeling very well for the past few days if not longer, she had her Life Alert button and was brought to the emergency room for further evaluation. Workup and evaluation in the emergency room demonstrated the patient to be hemodynamically stable (although some relative hypotension was noted) but her respiratory status was tenuous. BiPAP was applied given her shortness of breath with further adjustment as her ABG did not show any significant improvement in her respiratory acidosis. Routine blood test demonstrated a marked decline in her kidney function as well as a urinalysis highly suggestive of a urinary tract infection. Given her acute renal failure as well as her tenuous respiratory status with BiPAP in place, she was admitted to the ICU f
[2020-04-09 21:35] LABS: Glucose Point of Care 197 (65-105)
[2020-04-09] MEDS: INSULIN GLARGINE (*BKC) 100 UNITS/ML 36 UNITS SUB-Q (21:38)
[2020-04-10] VITALS (28 sets, daily range): BP systolic 100–149; BP diastolic 48–99; PULSE 56–84; RESP 18–26; TEMP 35.9–37.1; O2SAT 90–94
[2020-04-10 00:16] LABS: Glucose Point of Care 247 (65-105)
[2020-04-10] MEDS: INSULIN ASPART (*BKC) 100 UNITS/ML SUB-Q ×5 (00:27→20:35)
[2020-04-10] MEDS: ALBUTEROL SULFATE NEB 2.5 MG/0.5 ML INH INHALATION ×4 (02:32→20:20)
[2020-04-10] MEDS: IPRATROPIUM BR 0.02% INH SOLN 0.5 MG/2.5 ML VIAL INHALATION ×4 (02:32→20:20)
[2020-04-10 03:43] LABS: Alveolar/Arterial O2 Gradient 77.2 mmHg; Base Excess ABG -6.8 mEq/l (+/-2.0); Carboxyhemoglobin 0.2 % THb (0-2.0); Fractional Inspired Oxygen 30 %; HCO3 ABG 21.7 mEq/l (22.0-26.0); Methemoglobin ABG 0.2 %THb (0-1.5); Oxygen Content ABG 15.2 %vol (16.0-22.0); Oxygen Saturation ABG 89.5 % (95.0-100.0); Oxyhemoglobin 90.8 % THb (90.0-100.0); PCO2 ABG 57.3 mmHg (35.0-45.0); PO2 ABG 69.4 mmHg (80.0-100.0); PO2 FiO2 Ratio Arterial Blood 2.31 %; Reduced Hemoglobin 8.8 %THb (0-5.0); Total Hemoglobin 11.9 g/dL (12.0-18.0)
[2020-04-10 03:46] LABS: pH ABG 7.196 (7.350-7.450)
[2020-04-10 03:47] LABS: Modified Allen's Test Pass; Site Drawn RIGHT RADIAL
[2020-04-10 04:05] LABS: Device OTHER DEVICE
[2020-04-10 05:39] LABS: Glucose Point of Care 260 (65-105)
[2020-04-10] MEDS: methylPREDNISolone SOD SUCC 125 MG VIAL 60 MG IV PUSH (05:47)
[2020-04-10 06:21] LABS: Basophils Percent Auto 0.1 % (0.2-1.2); Hematocrit 35.6 % (37.0-47.0); Hemoglobin 10.7 g/dL (12.0-15.0); Immature Granulocyte Absolute 0.11 K/mm3 (0.00-0.031); Immature Granulocyte Percent A 1.5 % (0-0.5); Lymphocytes Absolute Auto 0.32 K/mm3 (0.9-3.2); Lymphocytes Percent Auto 4.2 % (18.3-44.2); Mean Corpuscular HGB Conc 30.1 g/dl (32-36); Mean Corpuscular Hemoglobin 28.6 pg (26-34); Mean Corpuscular Volume 95.2 fl (80-100); Mean Platelet Volume 12.8 fl (7.4-10.4); Monocytes Absolute Auto 0.2 K/mm3 (0.1-0.6); Neutrophils Absolute Auto 6.9 K/mm3 (1.3-6.7); Neutrophils Percent Auto 92.2 % (45.5-73.1); Platelet Count Result 125 k/mm3 (150-375); Red Blood Count 3.74 M/mm3 (4.2-5.4); White Blood Count 7.5 K/mm3 (4.5-10.0)
[2020-04-10 06:30] LABS: Alanine Aminotransferase 214 U/L (4-35); Albumin Level 3.4 g/dL (3.5-5.1); Alkaline Phosphatase 79 U/L (38-126); Anion Gap 12 mmol/L (8-16); Aspartate Amino Transferase 155 U/L (14-36); Bilirubin,Total 0.4 mg/dL (0.2-1.3); Blood Urea Nitrogen 68 mg/dL (7-17); Calcium 8.2 mg/dL (8.4-10.2); Carbon Dioxide 21 mmol/L (22-30); Chloride 106 mmol/L (98-107); Estimated CRCL calculation 15 ml/min; Estimated Glomerular Filt Rate 8; Glucose 262 mg/dL (65-105); Magnesium 2.5 mg/dL (1.6-2.3); Phosphorus 7.6 mg/dL (2.5-4.5); Potassium 4.6 mmol/L (3.4-5.0); Sodium 139 mmol/L (137-145)
[2020-04-10 07:58] LABS: Glucose Point of Care 234 (65-105)
[2020-04-10] MEDS: INSULIN ASPART (*BKC) 100 UNITS/ML 15 UNITS SUB-Q ×2 (08:04→12:10)
[2020-04-10] MEDS: FENOFIBRATE,MICRONIZED 48 MG TABLET PO (08:06)
[2020-04-10] MEDS: FUROSEMIDE 40 MG TABLET PO (08:06)
[2020-04-10] MEDS: SIMVASTATIN 20 MG TABLET PO (08:06)
[2020-04-10] MEDS: ENOXAPARIN 40 MG/0.4 ML SYRINGE SUB-Q (08:07)
--- NOTE | 2020-04-10 09:40 | WPDINTPN ---
Progress Note: A&P Assessment and Plan (1) Acute renal failure: Code(s): N17.9 - Acute kidney failure, unspecified Status: Acute Assessment and Plan: Likely prerenal with significant hypotension and over diuresis. She has chronic kidney disease with her baseline creatinine of 2-2.5. Nephrology service recommendations appreciated. She does not need hemodialysis at this time. CT abdomen pelvis showed nonobstructive nephrolithiasis with no hydronephrosis. Question of cystitis with ascending urinary tract infection. She had a urine output of 1.3 L over the last 24 hours. I will stop Lasix today. I will start her on p.o. bicarbonate. She may need IV bicarbonate as well but will leave that decision to compensation associate. (2) Acute respiratory failure with hypoxia and hypercapnia: Code(s): J96.01 - Acute respiratory failure with hypoxia; J96.02 - Acute respiratory failure with hypercapnia Status: Acute Assessment and Plan: Unclear etiology. Minimal breath sounds bilaterally with history of COPD. Likely as a result of COPD exacerbation. Continue BiPAP with AVAPS settings. She may be having metabolic component because of her acute renal failure. She has been taken off BiPAP today in the morning and seems to be doing very well subjectively. She is requiring 2 L of oxygen with her oxygen saturation within acceptable range of early to mid 90s. She will be placed on BiPAP overnight. She can be put on BiPAP on p.r.n. basis for increased work of breathing. Continue to monitor ABG. Still having significant acidosis likely metabolic with a component chronic hypercarbic respiratory failure secondary to morbid obesity, possible obesity hypoventilation and AMAIRANI not very compliant to the use of CPAP. I will draw an ABG symptom later today. It is unclear about her baseline pCO2 as she is morbidly obese and might be having some degree of obesity hypoventilation. (3) Elevated liver enzymes: Code(s): R74.8 - Abnormal levels of other serum enzymes Status: Acute Assessment and Plan: Continue to monitor. Ultrasound of the right upper quadrant showing changes for possible cirrhosis. No obstructive biliary issues. CT abdomen pelvis did not show any significant biliary pathology. LFTs are trending down. May consider GI evaluation as inpatient versus outpatient. (4) Acute dehydration: Code(s): E86.0 - Dehydration Status: Acute Assessment and Plan: Stop IV fluids today. (5) Obesity, morbid, BMI 50 or higher: Code(s): E66.01 - Morbid (severe) obesity due to excess calories Status: Acute Assessment and Plan: I would encourage her to lose weight. (6) Type 2 diabetes mellitus with diabetic polyneuropathy: Qualifiers: Diabetes mellitus terminal operations supervisor insulin use: with terminal operations supervisor use Qualified Code(s): E11.42 - Type 2 diabetes mellitus with diabetic polyneuropathy; Z79.4 - detention (current) use of insulin Code(s): E11.42 - Type 2 diabetes mellitus with diabetic polyneuropathy Status: Chronic Assessment and Plan: Continue insulin sliding scale. Continue to monitor Accu-Cheks closely. She is on steroid which is making her blood sugar to remain uncontrolled. I will increase Lantus dose from 36 units to 40 units today. (7) Sleep apnea: Qualifiers: Sleep apnea type: obstructive Qualified Code(s): G47.33 - Obstructive sleep apnea (adult) (pediatric) Code(s): G47.30 - Sleep apnea, unspecified Status: Acute Assessment and Plan: Seems to have obstructive sleep apnea but not very compliant to the CPAP use. She thinks that pressures are too high. She will remain on BiPAP overnight and on p.r.n. basis if there is increased work of breathing. (8) Diastolic dysfunction: Code(s): I51.89 - Other ill-defined heart diseases
[2020-04-10] MEDS: SODIUM BICARBONATE TAB 650 MG TABLET PO ×2 (10:31→20:32)
[2020-04-10 11:42] LABS: Glucose Point of Care 331 (65-105)
[2020-04-10 13:19] LABS: Alveolar/Arterial O2 Gradient 169.9 mmHg; Base Excess ABG -7.7 mEq/l (+/-2.0); Fractional Inspired Oxygen 40 %; HCO3 ABG 19.4 mEq/l (22.0-26.0); Oxygen Content ABG 14.9 %vol (16.0-22.0); Oxyhemoglobin 90.3 % THb (90.0-100.0); PCO2 ABG 45.9 mmHg (35.0-45.0); PO2 ABG 62.5 mmHg (80.0-100.0); PO2 FiO2 Ratio Arterial Blood 1.56 %; Total Hemoglobin 11.7 g/dL (12.0-18.0)
[2020-04-10 13:22] LABS: Device NASAL CANNULA; Modified Allen's Test Pass; Site Drawn RIGHT RADIAL; pH ABG 7.244 (7.350-7.450)
--- NOTE | 2020-04-10 13:29 | PM.PNNEP ---
Progress Note: A&P Assessment and Plan (1) Acute renal failure: Code(s): N17.9 - Acute kidney failure, unspecified Status: Acute Assessment and Plan: etiology?? 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 follow trend of repeat labs and urine output (2) Chronic kidney disease, stage IV (severe): Code(s): N18.4 - Chronic kidney disease, stage 4 (severe) Status: Chronic Assessment and Plan: baseline creatinine ~ 2.0 - 2.5mg/dl in the last year secondary to HTN, diabetes, AMAIRANI/obesity, and vascular disease (3) Acute respiratory failure with hypoxia and hypercapnia: Code(s): J96.01 - Acute respiratory failure with hypoxia; J96.02 - Acute respiratory failure with hypercapnia Status: Acute Assessment and Plan: complicated by history of COPD and AMAIRANI and likely obesity hypoventilation syndrome off BIPAP therapy -- needs to be more compliance with home CPAP therapy follow ABGs (4) Urinary tract infection: Code(s): N39.0 - Urinary tract infection, site not specified Status: Acute Assessment and Plan: urine culture with Salmonella playing a role with #1(?) on antibiotics (5) Elevated liver enzymes: Code(s): R74.8 - Abnormal levels of other serum enzymes Status: Acute Assessment and Plan: due to relative hypotension(?) RUQ ultrasound with evidence of liver cirrhosis follow trend (6) Diabetes: Code(s): E11.9 - Type 2 diabetes mellitus without complications Status: Acute Assessment and Plan: follow accuchecks glycemic control Will continue to follow. Subjective Date/time seen: 04/10/20 13:29 Appears to be doing better today -- off BiPAP therapy with stable respiratory status; good urine output in the last 24 hours with improvement in her shortness of breath; BP still remains soft; issues with hyperglycemia likely secondary to steroid use; no acute distress noted at this time; started on oral sodium bicarbonate today. Exam Narrative: Exam Narrative: General: Large Cacuasian female in NAD Heart: normal S1 and S2; no rub Lungs: decreased at bases Abdomen: soft, nontender, nondistended, positive bowel sounds Extremities: no cyanosis or clubbing; 1+ edema Skin: warm and dry Objective Data Vital Signs Vital Signs: Vital Signs Temp Pulse Resp BP Pulse Ox 04/10/20 12:00 36.9 C 76 21 H 137/75 90 04/10/20 11:41 91 04/10/20 10:00 36.9 C 73 20 149/64 H 91 04/10/20 08:00 37.1 C 64 18 137/99 H 92 04/10/20 07:57 72 25 H 93 04/10/20 07:55 63 18 04/10/20 06:00 36.7 C 61 20 109/61 93 04/10/20 05:56 60 23 H 92 04/10/20 04:00 36.7 C 62 20 102/49 L 94 04/10/20 02:44 77 22 H 04/10/20 02:35 66 23 H 91 04/10/20 02:34 61 23 H 04/10/20 02:00 36.6 C 65 21 H 106/54 L 92 04/10/20 00:00 36.7 C 59 L 18 100/56 L 90 04/09/20 23:10 71 22 H 93 04/09/20 22:00 36.9 C 75 20 119/73 92 04/09/20 20:47 69 22 H 04/09/20 20:30 80 21 H 04/09/20 20:25 80 21 H 94 04/09/20 20:00 37.1 C 68 20 148/81 H 94 04/09/20 17:57 37.2 C 66 20 138/80 94 04/09/20 16:28 67 20 97 04/09/20 16:00 37.1 C 70 20 129/65 95 04/09/20 14:00 37.1 C 78 20 119/59 L 93 Intake/Output Intake/Output: Intake & Output 04/07/20 04/08/20 04/09/20 04/10/20 23:59 23:59 23:59 23:59 Intake Total 4050 1245 Output Total 450 850 Balance 3600 395 Meds/Results Medications: Active Medications Generic Name Dose Route Start Last Admin Trade Name Freq PRN Reason Stop Dose Admin Acetaminophen 650 mg 04/09/20 18:11 Acetaminophen 325 Mg Tablet PO
--- NOTE | 2020-04-10 14:08 | PC.NURSE ---
Patient transferred to [facility] at 1355, report given to Rosibel HARRIS. All belongings sent with patient.
--- NOTE | 2020-04-10 15:15 | PM.IMPN ---
Progress Note: A&P Assessment and Plan (1) Morbid obesity: Code(s): E66.01 - Morbid (severe) obesity due to excess calories Status: Chronic Assessment and Plan: Adviced to loose weight (2) Acute renal failure: Code(s): N17.9 - Acute kidney failure, unspecified Status: Acute Assessment and Plan: Creat is 5.1, pt has history of ckd, stage 3, continue to monitor renal function. (3) Acute respiratory failure with hypoxia and hypercapnia: Code(s): J96.01 - Acute respiratory failure with hypoxia; J96.02 - Acute respiratory failure with hypercapnia Status: Acute Assessment and Plan: cxr shows cardiomegaly and enlargement of the central pulmonary arteries which could be seen with pulmonary arterial hypertension. Pt being treated for copd excerbation. (4) Elevated liver enzymes: Code(s): R74.8 - Abnormal levels of other serum enzymes Status: Acute Assessment and Plan: Continue to monitor. (5) Acute dehydration: Code(s): E86.0 - Dehydration Status: Acute Assessment and Plan: Pt is on iv fluids continue to watch peripheral for any further edema. Pt has history of chronic lymphedema, history of chronic venous insufficiency. (6) Urinary tract infection: Code(s): N39.0 - Urinary tract infection, site not specified Status: Acute Assessment and Plan: Pt is started on iv rocephin, uc shows salmonella species sensitive to Rocephin (7) COPD exacerbation: Code(s): J44.1 - Chronic obstructive pulmonary disease with (acute) exacerbation Status: Acute Assessment and Plan: Pt is on bipap started on IV steroids and breathing treatments (8) Diastolic dysfunction: Code(s): I51.89 - Other ill-defined heart diseases Status: Chronic Assessment and Plan: Pt will benefit from echocardiogram. (9) Type 2 diabetes mellitus with diabetic polyneuropathy: Qualifiers: Diabetes mellitus retirement insulin use: with retirement use Qualified Code(s): E11.42 - Type 2 diabetes mellitus with diabetic polyneuropathy; Z79.4 - senior care (current) use of insulin Code(s): E11.42 - Type 2 diabetes mellitus with diabetic polyneuropathy Status: Chronic Assessment and Plan: Accuchecks, SSI, watch pt is on steroids Subjective Date/time seen: 04/10/20 15:15 Interval history: Rosario Ruiz is a 64 year old female with history of diastolic CHF, COPD, history of DVT/PE, history of kidney stone, chronic lymphedema, history of chronic venous insufficiency, diabetes mellitus, obstructive sleep apnea and hyperlipidemia, couple of days ago she had a temperature and she came into ED but was discharged back to the assisted living. Yesterday she was sob and her sugars were running high and she felt unwell. She hit the [employer] alert button and the assisted living facility brought her to ED for further evaluation. Pt admitted for acute respiratory failure with hypoxia and hypercapnia, elevated liver enzymes, acute dehydration, ARF and urinary tract infection. Pt is off bipap and doing well on 5 liters Review of Systems Review of Systems: All systems reviewed & are unremarkable except as noted in HPI and below Exam Narrative: Exam Narrative: Morbidly obese, chronically ill Chest: Chest palpation & inspection: normal inspection of the chest Resp: Effort & Inspection: normal respiratory effort Auscultation: diminished lung sounds Cardio: Jugular venous distension: no JVD Rhythm: regular rhythm Heart sounds: S1 normal heart sound present and S2 normal heart sound present GI: Inspection: normal to inspection Auscultation: normal bowel sounds Skin: General skin exam: normal color and dry skin Neuro: Cranial nerves: Yes CN's II-XII intact bilaterally and Yes Equal, round and reactive pupils present Cognition (Neuro): normal cognition Speech: normal speech Motor exam (neuro): 5/5 motor strength pr
[2020-04-10 16:20] LABS: Glucose Point of Care 326 (65-105)
[2020-04-10] MEDS: HEPARIN SODIUM 5,000 UNITS/ML VIAL 5000 UNITS SUB-Q ×2 (17:30→20:31)
[2020-04-10] MEDS: INSULIN ASPART (*BKC) 100 UNITS/ML 20 UNITS SUB-Q (17:31)
[2020-04-10] MEDS: methylPREDNISolone SOD SUCC 40 MG VIAL IV PUSH ×2 (17:31→20:32)
[2020-04-10] MEDS: traMADol HCL (*CRX) 50 MG TABLET PO (17:33)
[2020-04-10 19:45] LABS: Glucose Point of Care 366 (65-105)
[2020-04-10] MEDS: ACETAMINOPHEN 325 MG TABLET 650 MG PO (20:31)
[2020-04-10] MEDS: INSULIN GLARGINE (*BKC) 100 UNITS/ML 40 UNITS SUB-Q (20:34)
[2020-04-11] VITALS (22 sets, daily range): BP systolic 105–125; BP diastolic 47–65; PULSE 50–72; RESP 16–25; TEMP 36–36.7; O2SAT 90–98
[2020-04-11] MEDS: IPRATROPIUM BR 0.02% INH SOLN 0.5 MG/2.5 ML VIAL INHALATION ×3 (02:32→19:48)
[2020-04-11] MEDS: ALBUTEROL SULFATE NEB 2.5 MG/0.5 ML INH INHALATION ×3 (02:32→19:48)
[2020-04-11 04:20] LABS: Base Excess ABG -5.3 mEq/l (+/-2.0); Carboxyhemoglobin 0.3 % THb (0-2.0); Fractional Inspired Oxygen 40 %; HCO3 ABG 22.1 mEq/l (22.0-26.0); Oxygen Content ABG 15.5 %vol (16.0-22.0); Oxygen Saturation ABG 93.2 % (95.0-100.0); Oxyhemoglobin 93.2 % THb (90.0-100.0); PCO2 ABG 51.4 mmHg (35.0-45.0); PO2 ABG 77.1 mmHg (80.0-100.0); PO2 FiO2 Ratio Arterial Blood 1.93 %; Reduced Hemoglobin 6.5 %THb (0-5.0); Total Hemoglobin 11.8 g/dL (12.0-18.0); pH ABG 7.251 (7.350-7.450)
[2020-04-11 04:21] LABS: Device NON-INVASIVE VENT; Modified Allen's Test Pass; Non-Invasive Vent Rate 20 /MIN; Site Drawn RIGHT RADIAL
[2020-04-11 04:22] LABS: Non-Invasive Expiratory Pressure 12 CMH2O
[2020-04-11] MEDS: methylPREDNISolone SOD SUCC 40 MG VIAL IV PUSH ×3 (06:29→22:14)
[2020-04-11] MEDS: HEPARIN SODIUM 5,000 UNITS/ML VIAL 5000 UNITS SUB-Q ×3 (06:29→21:50)
[2020-04-11] MEDS: SODIUM BICARBONATE TAB 650 MG TABLET PO ×3 (06:29→22:14)
[2020-04-11 07:57] LABS: Glucose Point of Care 345 (65-105)
[2020-04-11] MEDS: traMADol HCL (*CRX) 50 MG TABLET PO (08:07)
[2020-04-11] MEDS: FENOFIBRATE,MICRONIZED 48 MG TABLET PO (08:08)
[2020-04-11] MEDS: SIMVASTATIN 20 MG TABLET PO (08:08)
[2020-04-11] MEDS: INSULIN ASPART (*BKC) 100 UNITS/ML SUB-Q ×3 (08:44→16:41)
[2020-04-11] MEDS: INSULIN ASPART (*BKC) 100 UNITS/ML 15 UNITS SUB-Q ×2 (08:44→12:23)
[2020-04-11 09:07] LABS: Hematocrit 35.5 % (37.0-47.0); Hemoglobin 10.8 g/dL (12.0-15.0); Mean Corpuscular HGB Conc 30.4 g/dl (32-36); Mean Corpuscular Hemoglobin 28.4 pg (26-34); Mean Corpuscular Volume 93.4 fl (80-100); Mean Platelet Volume 12.4 fl (7.4-10.4); Platelet Count Result 129 k/mm3 (150-375); Red Cell Distribution Width 14.9 % (11.5-14.5); White Blood Count 5.9 K/mm3 (4.5-10.0)
[2020-04-11 09:21] LABS: Alanine Aminotransferase 163 U/L (4-35); Albumin Level 3.4 g/dL (3.5-5.1); Alkaline Phosphatase 92 U/L (38-126); Anion Gap 12 mmol/L (8-16); Aspartate Amino Transferase 69 U/L (14-36); Bilirubin,Total 0.4 mg/dL (0.2-1.3); Blood Urea Nitrogen 82 mg/dL (7-17); Calcium 8.6 mg/dL (8.4-10.2); Carbon Dioxide 24 mmol/L (22-30); Chloride 101 mmol/L (98-107); Estimated CRCL calculation 19 ml/min; Estimated Glomerular Filt Rate 10; Glucose 420 mg/dL (65-105); Magnesium 2.4 mg/dL (1.6-2.3); Phosphorus 6.3 mg/dL (2.5-4.5); Potassium 4.5 mmol/L (3.4-5.0); Sodium 137 mmol/L (137-145)
[2020-04-11 11:47] LABS: Glucose Point of Care 385 (65-105)
--- NOTE | 2020-04-11 12:00 | PC.NURSE ---
This patient, Rosario Ruiz, was transferred to [facility] on 04/11/20 at 1155. Personal belongings sent with patient. Report given to Agnieszka. Appropriate documentation sent with patient.
--- NOTE | 2020-04-11 12:12 | PM.IMPN ---
Progress Note: A&P Assessment and Plan (1) Morbid obesity: Code(s): E66.01 - Morbid (severe) obesity due to excess calories Status: Chronic Assessment and Plan: Adviced to loose weight 04/11/20 12:12 patient is 63-year-old female with history sleep apnea on CPAP patient does not wear her CPAP as recommended patient is morbidly obese with BMI of 61, has a history sleep apnea presented emergency department with a complaint short of breath patient was found to have acute respiratory failure with hypercapnia most likely secondary hypoventilation due to morbid obesity, patient was placed on BiPAP initially chest x-ray shows Cardiomegaly and enlargement of the central pulmonary arteries which could be seen with pulmonary arterial hypertension most likely secondary untreated sleep apnea will consult tax accountant further recommendation, patient with history chronic kidney disease now with creatinine of 5.1 seen by nephrology and suspect fast decline in kidney function secondary to hypotension and dehydration, CT scan of the abdomen suspected UTI urine culture is growing somonela sensitive to Rocephin will continue and monitor, clinical symptoms are improving patient does not require oxygen at home will need home O2 evaluation before discharge (2) Acute renal failure: Code(s): N17.9 - Acute kidney failure, unspecified Status: Acute Assessment and Plan: Creat is 5.1, pt has history of ckd, stage 3, continue to monitor renal function. (3) Acute respiratory failure with hypoxia and hypercapnia: Code(s): J96.01 - Acute respiratory failure with hypoxia; J96.02 - Acute respiratory failure with hypercapnia Status: Acute Assessment and Plan: cxr shows cardiomegaly and enlargement of the central pulmonary arteries which could be seen with pulmonary arterial hypertension. Pt being treated for copd excerbation. (4) Elevated liver enzymes: Code(s): R74.8 - Abnormal levels of other serum enzymes Status: Acute Assessment and Plan: Continue to monitor. (5) Acute dehydration: Code(s): E86.0 - Dehydration Status: Acute Assessment and Plan: Pt is on iv fluids continue to watch peripheral for any further edema. Pt has history of chronic lymphedema, history of chronic venous insufficiency. (6) Urinary tract infection: Code(s): N39.0 - Urinary tract infection, site not specified Status: Acute Assessment and Plan: Pt is started on iv rocephin, uc shows salmonella species sensitive to Rocephin (7) COPD exacerbation: Code(s): J44.1 - Chronic obstructive pulmonary disease with (acute) exacerbation Status: Acute Assessment and Plan: Pt is on bipap started on IV steroids and breathing treatments (8) Diastolic dysfunction: Code(s): I51.89 - Other ill-defined heart diseases Status: Chronic Assessment and Plan: Pt will benefit from echocardiogram. (9) Type 2 diabetes mellitus with diabetic polyneuropathy: Qualifiers: Diabetes mellitus retirement insulin use: with retirement use Qualified Code(s): E11.42 - Type 2 diabetes mellitus with diabetic polyneuropathy; Z79.4 - retirement (current) use of insulin Code(s): E11.42 - Type 2 diabetes mellitus with diabetic polyneuropathy Status: Chronic Assessment and Plan: RONY Diallo, watch pt is on steroids Subjective Date/time seen: Adviced to loose weight 04/11/20 12:12 patient is 63-year-old female with history sleep apnea on CPAP patient does not wear her CPAP as recommended patient is morbidly obese with BMI of 61, has a history sleep apnea presented emergency department with a complaint short of breath patient was found to have acute respiratory failure with hypercapnia most likely secondary hypoventilation due to morbid obesity, patient was placed on BiPAP initially chest x-ray shows Cardiomegaly and enlargement of the central pu
[2020-04-11] MEDS: ACETAMINOPHEN 325 MG TABLET 650 MG PO ×2 (12:28→18:05)
--- NOTE | 2020-04-11 12:32 | PC.NURSE ---
1232-Patient returned from GI lab per stretcher.
--- NOTE | 2020-04-11 12:34 | PC.NURSE ---
Patient transfer received from IMU. Report recievd from Rosibel HARRIS.
[2020-04-11] MEDS: TOLNAFTATE 1% POWDER 45 GM BTL 1 APPLIC TOPICAL ×2 (13:41→22:14)
--- NOTE | 2020-04-11 16:06 | PM.PNNEP ---
Progress Note: A&P Assessment and Plan (1) Acute renal failure: Code(s): N17.9 - Acute kidney failure, unspecified Status: Acute Assessment and Plan: etiology?? marked decline from her last ER visit suspect due to relatively hypotension, pre-renal factors, ongoing use of diuretics and UTI disease progression is possible but seems to rapid of a decline creatinine appears to have peaked/plateaued at 5.1mg/dl.... follow trend of repeat labs and urine output (2) Chronic kidney disease, stage IV (severe): Code(s): N18.4 - Chronic kidney disease, stage 4 (severe) Status: Chronic Assessment and Plan: baseline creatinine ~ 2.0 - 2.5mg/dl in the last year secondary to HTN, diabetes, AMAIRANI/obesity, and vascular disease (3) Acute respiratory failure with hypoxia and hypercapnia: Code(s): J96.01 - Acute respiratory failure with hypoxia; J96.02 - Acute respiratory failure with hypercapnia Status: Acute Assessment and Plan: complicated by history of COPD and AMAIRANI and likely obesity hypoventilation syndrome off BIPAP therapy -- needs to be more compliance with home CPAP therapy follow respiratory status (4) Urinary tract infection: Code(s): N39.0 - Urinary tract infection, site not specified Status: Acute Assessment and Plan: urine culture with Salmonella playing a role with #1(?) on antibiotics (5) Elevated liver enzymes: Code(s): R74.8 - Abnormal levels of other serum enzymes Status: Acute Assessment and Plan: due to relative hypotension(?) RUQ ultrasound with evidence of liver cirrhosis follow trend (6) Diabetes: Code(s): E11.9 - Type 2 diabetes mellitus without complications Status: Acute Assessment and Plan: follow accuchecks glycemic control Will continue to follow. Subjective Date/time seen: 04/11/20 16:06 Respiratory status continues to improve with ongoing therapy; transferred out of ICU yesterday afternoon; remains hemodynamically stable with reasonable urine output in the last 24 hours. Exam Narrative: Exam Narrative: General: Large Cacuasian female in NAD Heart: normal S1 and S2; no rub Lungs: decreased at bases Abdomen: soft, nontender, nondistended, positive bowel sounds Extremities: no cyanosis or clubbing; 1+ edema Skin: warm and intact Objective Data Vital Signs Vital Signs: Vital Signs Temp Pulse Resp BP Pulse Ox 04/11/20 14:00 36.0 C L 67 20 108/53 L 92 04/11/20 12:00 36.1 C L 66 16 105/47 L 92 04/11/20 10:00 67 04/11/20 09:40 61 20 04/11/20 09:30 63 22 H 90 04/11/20 08:00 50 L 04/11/20 07:03 36.7 C 55 L 18 125/65 96 04/11/20 06:00 50 L 04/11/20 04:26 54 L 22 H 93 04/11/20 04:00 53 L 04/11/20 03:55 36.6 C 59 L 22 H 120/60 96 04/11/20 02:44 51 L 21 H 91 04/11/20 02:41 54 L 21 H 04/11/20 02:30 57 L 23 H 04/11/20 02:00 50 L 04/11/20 00:30 63 25 H 92 04/11/20 00:00 64 04/10/20 23:43 36.4 C 56 L 20 114/72 92 04/10/20 22:00 66 04/10/20 20:29 77 20 04/10/20 20:28 75 20 92 04/10/20 20:21 75 20 04/10/20 20:00 68 04/10/20 19:22 36.0 C L 67 20 119/62 92 Intake/Output Intake/Output: Intake & Output 04/08/20 04/09/20 04/10/20 04/11/20 23:59 23:59 23:59 23:59 Intake Total 4050 2445 1040 Output Total 450 2250 2725 Balance 3600 195 -1685 Meds/Results Medications: Active Medications Generic Name Dose Route Start Last Admin Trade Name Freq PRN Reason Stop Dose Admin Acetaminophen 650 mg 04/09/20 18:11 04/11/20 12:28 Acetaminophen 325 Mg Tablet PO 650 mg Q6H PRN Administration Mild Pain (1-3) Albuterol 2.5 mg 04/09/20 08:00 04/11/20 16:55 Albuterol Sulfate Neb 2.5 Mg/0.5 Ml Inh INHALATION Not Given Q6HRT FRANCISCO Albuterol 2.5 mg 04/09/20 07:45 Albuterol Sulfate Neb 2.5 Mg/0
[2020-04-11] MEDS: INSULIN ASPART (*BKC) 100 UNITS/ML 20 UNITS SUB-Q (16:41)
[2020-04-11 16:53] LABS: Glucose Point of Care 370 (65-105)
[2020-04-11] MEDS: INSULIN GLARGINE (*BKC) 100 UNITS/ML 40 UNITS SUB-Q (21:58)
[2020-04-11 22:35] LABS: Glucose Point of Care 325 (65-105)
[2020-04-12] VITALS (13 sets, daily range): BP systolic 104–118; BP diastolic 45–72; PULSE 52–119; RESP 16–24; TEMP 36.1–36.7; O2SAT 64–100
[2020-04-12] MEDS: ALBUTEROL SULFATE NEB 2.5 MG/0.5 ML INH INHALATION ×2 (01:47→08:20)
[2020-04-12] MEDS: IPRATROPIUM BR 0.02% INH SOLN 0.5 MG/2.5 ML VIAL INHALATION ×2 (01:47→08:20)
[2020-04-12 04:39] LABS: Base Excess ABG -1.5 mEq/l (+/-2.0); Carboxyhemoglobin 0.3 % THb (0-2.0); Fractional Inspired Oxygen 44 %; HCO3 ABG 25.3 mEq/l (22.0-26.0); Methemoglobin ABG 0.3 %THb (0-1.5); Oxygen Content ABG 15.8 %vol (16.0-22.0); Oxygen Saturation ABG 91.1 % (95.0-100.0); Oxyhemoglobin 91.4 % THb (90.0-100.0); PCO2 ABG 51.4 mmHg (35.0-45.0); PO2 ABG 66.1 mmHg (80.0-100.0); Total Hemoglobin 12.3 g/dL (12.0-18.0)
[2020-04-12 04:40] LABS: Device NASAL CANNULA; Modified Allen's Test Pass; Site Drawn RIGHT RADIAL
[2020-04-12] MEDS: methylPREDNISolone SOD SUCC 40 MG VIAL IV PUSH (05:13)
[2020-04-12] MEDS: SODIUM BICARBONATE TAB 650 MG TABLET PO ×3 (05:16→21:07)
[2020-04-12] MEDS: HEPARIN SODIUM 5,000 UNITS/ML VIAL 5000 UNITS SUB-Q ×3 (05:17→21:07)
[2020-04-12 06:10] LABS: Glucose Point of Care 311 (65-105)
[2020-04-12 06:55] LABS: Hematocrit 34.3 % (37.0-47.0); Hemoglobin 10.9 g/dL (12.0-15.0); Mean Corpuscular HGB Conc 31.8 g/dl (32-36); Mean Corpuscular Hemoglobin 28.3 pg (26-34); Mean Corpuscular Volume 89.1 fl (80-100); Mean Platelet Volume 12.4 fl (7.4-10.4); Platelet Count Result 142 k/mm3 (150-375); Red Blood Count 3.85 M/mm3 (4.2-5.4); Red Cell Distribution Width 14.7 % (11.5-14.5)
[2020-04-12 07:07] LABS: Alanine Aminotransferase 143 U/L (4-35); Albumin Level 3.4 g/dL (3.5-5.1); Alkaline Phosphatase 99 U/L (38-126); Anion Gap 9 mmol/L (8-16); Aspartate Amino Transferase 44 U/L (14-36); Bilirubin,Total 0.4 mg/dL (0.2-1.3); Blood Urea Nitrogen 83 mg/dL (7-17); Calcium 8.9 mg/dL (8.4-10.2); Carbon Dioxide 25 mmol/L (22-30); Chloride 101 mmol/L (98-107); Estimated CRCL calculation 22 ml/min; Estimated Glomerular Filt Rate 12; Glucose 332 mg/dL (65-105); Magnesium 2.5 mg/dL (1.6-2.3); Phosphorus 5.4 mg/dL (2.5-4.5); Potassium 4.6 mmol/L (3.4-5.0); Sodium 135 mmol/L (137-145)
[2020-04-12 07:32] LABS: Glucose Point of Care 319 (65-105)
[2020-04-12] MEDS: INSULIN ASPART (*BKC) 100 UNITS/ML 15 UNITS SUB-Q ×2 (07:38→11:51)
[2020-04-12] MEDS: INSULIN ASPART (*BKC) 100 UNITS/ML SUB-Q ×3 (07:39→16:21)
[2020-04-12] MEDS: FENOFIBRATE,MICRONIZED 48 MG TABLET PO (07:44)
[2020-04-12] MEDS: SIMVASTATIN 20 MG TABLET PO (07:44)
[2020-04-12] MEDS: TOLNAFTATE 1% POWDER 45 GM BTL 1 APPLIC TOPICAL ×2 (07:45→20:50)
--- NOTE | 2020-04-12 09:37 | PM.CNPUL ---
Assessment and Plan Assessment and plan (1) Morbid obesity: Code(s): E66.01 - Morbid (severe) obesity due to excess calories Status: Chronic (2) COPD (chronic obstructive pulmonary disease): Qualifiers: COPD type: unspecified COPD Qualified Code(s): J44.9 - Chronic obstructive pulmonary disease, unspecified Code(s): J44.9 - Chronic obstructive pulmonary disease, unspecified Status: Acute Assessment and Plan: signs of exacerbation seem to have resolved. - will d/c systemic steroids - start Symbicort 160/4.5 mcg 2 puffs Q12h via spacer device - start Spiriva 18 mcg 1 puff daily - outpatient PFT and 6 minute walk test ordered (3) AMAIRANI (obstructive sleep apnea): Code(s): G47.33 - Obstructive sleep apnea (adult) (pediatric) Status: Acute Assessment and Plan: Sleep Study in 2018 showed severe AMAIRANI and she was successfully titrated to 18 cm H20 in lab. I will switch her from BIPAP to CPAP settings starting tonight. She uses nasal pillows with chin strap at home but in hospital she is tolerating full face mask (4) Acute respiratory failure with hypercapnia: Code(s): J96.02 - Acute respiratory failure with hypercapnia Status: Acute Assessment and Plan: She does not have signs of chronic hypercapnia. Acute hypercapnia was present on admission which seems to have resolved and likely due to hypoventilation from tramadol in the setting of worsening reanal function along with COPD. - we should switch her back to home settings of CPAP History of Present Illness History of Present Illness Consult date: 04/12/20 Chief complaint: acute renal failure/acure respiratory failure w hy Narrative: 64 y/o morbidly obese female with a history of AMAIRANI, COPD, CKD, diastolic dysfunction, DM, presents with weakness and found to have [place] UTI. She denied diarrheal illness, n/v. She was found to be in acute hypercapnea but without respiratory failure. She did not have dyspnea, respiratory distress or lethargy. She admits to not using her home CPAP at all for the past year and is also on Tramadol in the setting of CKD. She quit smoking a few years ago but has a 40-50 pack year smoking history. She admits to progressive dyspnea over the past few years but also admits to gaining significant weight. Her only inhaler at home is albuterol. She does have cough productive of clear sputum which is unchanged for many years. She denies chest pain, tightness or fever. She is feeling better today. She is tolerating BIPAP here. Her most recent ABG shows 7.31. Review of Systems Review of Systems: All systems reviewed & are unremarkable except as noted in HPI and below PMFSH Past Medical History Medical History Colon polyps Diastolic dysfunction DVT (deep venous thrombosis) Kidney stones Lymphedema Personal history of pulmonary embolism Pure hypercholesterolemia, unspecified Recurrent postcoital urinary tract infection Sleep apnea 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 2 diabetes mellitus with stage 3 chronic kidney disease Venous insufficiency Vitamin D deficiency, unspecified Surgical History Surgical History H/O colonoscopy H/O hysterectomy for benign disease H/O thymectomy History of cholecystectomy History of renal stent S/P carpal tunnel release S/P removal of ovarian cyst Family History Family History Mother Family history of diabetes mellitus in first degree relative Patient's mother is Diabetes mellitus Father Family history of heart disease in male family member before age 55 Family history of coronary artery disease Social History Social History Social History: Patient lives at home alone. She designa
--- NOTE | 2020-04-12 10:36 | PM.PNNEP ---
Progress Note: A&P Assessment and Plan (1) Acute renal failure: Code(s): N17.9 - Acute kidney failure, unspecified Status: Acute Assessment and Plan: suspect due to relatively hypotension, pre-renal factors, ongoing use of diuretics and UTI disease progression is possible but seems to rapid of a decline creatinine appears to have peaked/plateaued at 5.1mg/dl and is improving follow trend of repeat labs and urine output (2) Chronic kidney disease, stage IV (severe): Code(s): N18.4 - Chronic kidney disease, stage 4 (severe) Status: Chronic Assessment and Plan: baseline creatinine ~ 2.0 - 2.5mg/dl in the last year secondary to HTN, diabetes, AMAIRANI/obesity, and vascular disease (3) Acute respiratory failure with hypoxia and hypercapnia: Code(s): J96.01 - Acute respiratory failure with hypoxia; J96.02 - Acute respiratory failure with hypercapnia Status: Acute Assessment and Plan: complicated by history of COPD and AMAIRANI and likely obesity hypoventilation syndrome off BIPAP therapy Pulmonary recommendations noted follow respiratory status (4) Urinary tract infection: Code(s): N39.0 - Urinary tract infection, site not specified Status: Acute Assessment and Plan: urine culture with Salmonella playing a role with #1(?) on antibiotics (5) Elevated liver enzymes: Code(s): R74.8 - Abnormal levels of other serum enzymes Status: Acute Assessment and Plan: due to relative hypotension(?) RUQ ultrasound with evidence of liver cirrhosis follow trend (6) Diabetes: Code(s): E11.9 - Type 2 diabetes mellitus without complications Status: Acute Assessment and Plan: follow accuchecks glycemic control Will continue to follow. Subjective Date/time seen: 04/12/20 10:36 Slow and steady improvement in respiratory status since admission; sitting up in chair eating breakfast with supplemental oxygen in place; about to leave for CT scan since she has unequal pupils but appears neurologically intact; no events overnight or this AM. Exam Narrative: Exam Narrative: General: Large Cacuasian female in NAD Heart: normal S1 and S2; no rub Lungs: coarse and decreased at bases Abdomen: soft, nontender, nondistended, positive bowel sounds Extremities: no cyanosis or clubbing; 1+ edema Skin: no rash or nodules Objective Data Vital Signs Vital Signs: Vital Signs Temp Pulse Resp BP Pulse Ox 04/12/20 08:30 71 16 92 04/12/20 05:54 36.1 C L 69 16 112/59 L 91 04/12/20 02:07 62 20 04/12/20 02:00 36.4 C L 52 L 16 111/45 L 100 04/12/20 01:48 56 L 20 04/11/20 22:54 58 L 20 94 04/11/20 22:00 36.3 C L 57 L 16 113/50 L 98 04/11/20 20:02 70 20 04/11/20 19:49 72 20 92 04/11/20 18:00 36.1 C L 72 20 115/57 L 94 04/11/20 14:00 36.0 C L 67 20 108/53 L 92 04/11/20 12:00 36.1 C L 66 16 105/47 L 92 Intake/Output Intake/Output: Intake & Output 04/09/20 04/10/20 04/11/20 04/12/20 23:59 23:59 23:59 23:59 Intake Total 4050 2445 1330 1000 Output Total 450 2250 2725 1925 Balance 3600 838 -8560 -418 Meds/Results Medications: Active Medications Generic Name Dose Route Start Last Admin Trade Name Freq PRN Reason Stop Dose Admin Acetaminophen 650 mg 04/09/20 18:11 04/11/20 18:05 Acetaminophen 325 Mg Tablet PO 650 mg Q6H PRN Administration Mild Pain (1-3) Budesonide/Formoterol Fumarate 2 puff 04/12/20 09:35 Budesonide/Form 160-4.5 Mcg (*Sp) INHALATION Q12HRT FRANCISCO Dextrose 12.5 gm 04/09/20 11:50 Dextrose 50% 25 Gm/50 Ml Syringe IV PUSH PRN PRN Hypoglycemia Protocol Fenofibrate 48 mg 04/10/20 09:00 04/12/20 07:44 Fenofibrate,Micronized 48 Mg Tablet PO 48 mg QAM FRANCISCO Administration Glucagon 1 mg 04/09/20 11:50 Glucagon For Inj 1 Mg Vial IM PRN PRN Hypoglycemia Ishmael
[2020-04-12] MEDS: ALPRAZolam (*CRX) 0.25 MG TABLET PO (11:22)
--- NOTE | 2020-04-12 13:35 | PCDIET ---
MD consult received; completed nutritional education on this date (04/12/20). Reference nutritional teaching note regarding diabetic carbohydrate counting and renal disease for details.
--- NOTE | 2020-04-12 13:42 | PCNSR ---
On 04/12/20, the student, Sharita Chavira, provided care and completed [facility] documentation on this patient. I have reviewed the student's documentation and agree with the findings.
--- NOTE | 2020-04-12 13:48 | PM.IMPN ---
Progress Note: A&P Assessment and Plan (1) Morbid obesity: Code(s): E66.01 - Morbid (severe) obesity due to excess calories Status: Chronic Assessment and Plan: Adviced to loose weight 04/12/20 13:48 patient is 63-year-old female with history sleep apnea on CPAP patient does not wear her CPAP as recommended patient is morbidly obese with BMI of 61, has a history sleep apnea, and COPD presented emergency department with a complaint short of breath patient was found to have acute respiratory failure with hypercapnia most likely secondary hypoventilation due to morbid obesity as well as exacerbation of COPD, patient was placed on BiPAP initially chest x-ray shows Cardiomegaly and enlargement of the central pulmonary arteries which could be seen with pulmonary arterial hypertension most likely secondary untreated sleep apnea, consulted senior solutions engineer further recommendation, Also COPD patient patient is being treated with Solu-Medrol and updraft however patient still requiring 5 L of oxygen and patient is not on oxygen at home again patient be seen senior solutions engineer and further recommendation to follow, patient with history chronic kidney disease her creatinine was 5.1 upon arrival today is 3.8 with gentle hydration, seen by nephrology and suspect fast decline in kidney function secondary to hypotension and dehydration, CT scan of the abdomen suspected UTI urine culture is growing somonela sensitive to Rocephin will continue and monitor, today incidentally was found the patient's left pupil is larger than right, patient was not aware of the different, patient does not have any complaints of visual issues, to further evaluate patient had a CT scan of the head which is negative for any acute injury, clinical symptoms are improving patient does not require oxygen at home will need home O2 evaluation before discharge (2) Acute renal failure: Code(s): N17.9 - Acute kidney failure, unspecified Status: Acute Assessment and Plan: Creat is 5.1, pt has history of ckd, stage 3, continue to monitor renal function. (3) Acute respiratory failure with hypoxia and hypercapnia: Code(s): J96.01 - Acute respiratory failure with hypoxia; J96.02 - Acute respiratory failure with hypercapnia Status: Acute Assessment and Plan: cxr shows cardiomegaly and enlargement of the central pulmonary arteries which could be seen with pulmonary arterial hypertension. Pt being treated for copd excerbation. (4) Elevated liver enzymes: Code(s): R74.8 - Abnormal levels of other serum enzymes Status: Acute Assessment and Plan: Continue to monitor. (5) Acute dehydration: Code(s): E86.0 - Dehydration Status: Acute Assessment and Plan: Pt is on iv fluids continue to watch peripheral for any further edema. Pt has history of chronic lymphedema, history of chronic venous insufficiency. (6) Urinary tract infection: Code(s): N39.0 - Urinary tract infection, site not specified Status: Acute Assessment and Plan: Pt is started on iv rocephin, uc shows salmonella species sensitive to Rocephin (7) COPD exacerbation: Code(s): J44.1 - Chronic obstructive pulmonary disease with (acute) exacerbation Status: Acute Assessment and Plan: Pt is on bipap started on IV steroids and breathing treatments (8) Diastolic dysfunction: Code(s): I51.89 - Other ill-defined heart diseases Status: Chronic Assessment and Plan: Pt will benefit from echocardiogram. (9) Type 2 diabetes mellitus with diabetic polyneuropathy: Qualifiers: Diabetes mellitus ad terminal makeup operator insulin use: with snf use Qualified Code(s): E11.42 - Type 2 diabetes mellitus with diabetic polyneuropathy; Z79.4 - [facility] (current) use of insulin Code(s): E11.42 - Type 2 diabetes mellitus with diabetic polyneuropathy Status: Chronic Assessment and Plan: Ac
--- NOTE | 2020-04-12 14:06 | PC.NURSE ---
On 04/12/20, the student, [Kathleen Jeter ], provided care and completed [facility] documentation on this patient. I have reviewed the student's documentation and agree with the findings.Sharita Theodore RN
[2020-04-12 15:38] LABS: Glucose Point of Care 393 (65-105)
[2020-04-12] MEDS: INSULIN ASPART (*BKC) 100 UNITS/ML 20 UNITS SUB-Q (16:20)
[2020-04-12 16:36] LABS: Glucose Point of Care 287 (65-105)
[2020-04-12] MEDS: INSULIN GLARGINE (*BKC) 100 UNITS/ML 40 UNITS SUB-Q (20:45)
[2020-04-12 20:46] LABS: Glucose Point of Care 263 (65-105)
[2020-04-13] VITALS (14 sets, daily range): BP systolic 98–112; BP diastolic 53–58; PULSE 65–72; RESP 16–22; TEMP 36.1–36.6; O2SAT 92–97
[2020-04-13 04:32] LABS: Alveolar/Arterial O2 Gradient 135.9 mmHg; Base Excess ABG -1.3 mEq/l (+/-2.0); Carboxyhemoglobin 0.3 % THb (0-2.0); Fractional Inspired Oxygen 40 %; HCO3 ABG 25.3 mEq/l (22.0-26.0); Methemoglobin ABG 0.2 %THb (0-1.5); Oxygen Content ABG 15.8 %vol (16.0-22.0); Oxygen Saturation ABG 96.3 % (95.0-100.0); Oxyhemoglobin 95.4 % THb (90.0-100.0); PCO2 ABG 50.4 mmHg (35.0-45.0); PO2 ABG 91.3 mmHg (80.0-100.0); PO2 FiO2 Ratio Arterial Blood 2.28 %; Reduced Hemoglobin 4.1 %THb (0-5.0); Site Drawn RIGHT RADIAL; Total Hemoglobin 11.7 g/dL (12.0-18.0); pH ABG 7.318 (7.350-7.450)
[2020-04-13 04:33] LABS: Device NASAL CANNULA; Modified Allen's Test Pass
[2020-04-13 05:54] LABS: Hematocrit 36.1 % (37.0-47.0); Hemoglobin 11.1 g/dL (12.0-15.0); Mean Corpuscular HGB Conc 30.7 g/dl (32-36); Mean Corpuscular Hemoglobin 28.3 pg (26-34); Mean Corpuscular Volume 92.1 fl (80-100); Mean Platelet Volume 11.7 fl (7.4-10.4); Platelet Count Result 145 k/mm3 (150-375); Red Blood Count 3.92 M/mm3 (4.2-5.4); White Blood Count 5.1 K/mm3 (4.5-10.0)
[2020-04-13] MEDS: SODIUM BICARBONATE TAB 650 MG TABLET PO ×3 (06:04→21:30)
[2020-04-13] MEDS: HEPARIN SODIUM 5,000 UNITS/ML VIAL 5000 UNITS SUB-Q ×3 (06:04→21:29)
[2020-04-13 06:06] LABS: Alanine Aminotransferase 110 U/L (4-35); Albumin Level 3.3 g/dL (3.5-5.1); Alkaline Phosphatase 85 U/L (38-126); Anion Gap 9 mmol/L (8-16); Aspartate Amino Transferase 31 U/L (14-36); Bilirubin,Total 0.3 mg/dL (0.2-1.3); Blood Urea Nitrogen 81 mg/dL (7-17); Calcium 8.6 mg/dL (8.4-10.2); Carbon Dioxide 28 mmol/L (22-30); Chloride 104 mmol/L (98-107); Estimated CRCL calculation 25 ml/min; Estimated Glomerular Filt Rate 14; Glucose 87 mg/dL (65-105); Magnesium 2.3 mg/dL (1.6-2.3); Phosphorus 4.5 mg/dL (2.5-4.5); Potassium 3.7 mmol/L (3.4-5.0); Sodium 141 mmol/L (137-145)
--- NOTE | 2020-04-13 07:40 | PC.NURSE ---
Blood glucose 60. Patient asymptomatic with hypoglycemia. Eating breakfast currently. Refused glucose gel. Opted for juice instead. Juice given per hypoglycemic protocol.
[2020-04-13 07:49] LABS: Glucose Point of Care 60 (65-105)
[2020-04-13 08:31] LABS: Glucose Point of Care 113 (65-105)
[2020-04-13] MEDS: FENOFIBRATE,MICRONIZED 48 MG TABLET PO (09:02)
[2020-04-13] MEDS: TOLNAFTATE 1% POWDER 45 GM BTL 1 APPLIC TOPICAL ×2 (09:02→20:53)
[2020-04-13] MEDS: SIMVASTATIN 20 MG TABLET PO (09:02)
[2020-04-13 11:33] LABS: Glucose Point of Care 153 (65-105)
[2020-04-13] MEDS: INSULIN ASPART (*BKC) 100 UNITS/ML 15 UNITS SUB-Q (12:00)
--- NOTE | 2020-04-13 13:14 | PM.PNPUL ---
Progress Note: A&P Assessment and Plan (1) AMAIRANI (obstructive sleep apnea): Code(s): G47.33 - Obstructive sleep apnea (adult) (pediatric) Status: Acute Assessment and Plan: Continue CPAP 18 cm H20 QHS and while napping in the afternoons (2) COPD (chronic obstructive pulmonary disease): Qualifiers: COPD type: unspecified COPD Qualified Code(s): J44.9 - Chronic obstructive pulmonary disease, unspecified Code(s): J44.9 - Chronic obstructive pulmonary disease, unspecified Status: Acute Assessment and Plan: - continue Spiriva 18 mcg 1 puff daily - continue Symbicort 160/4.5 mcg 2 puffs bid - will add tessalon perles 100 mg PO TID for cough - outpatient PFT and 6 minute walk test ordered. Subjective Date/time seen: 04/13/20 13:14 Interval history: She was able to wear CPAP 18 cm H20 for about 3 hours last night and had to take it off because of nasal irritation. The pressure was tolerable. She complains of cough that's mostly non productive and causing some left sided rib pain. Review of Systems Review of Systems: All systems reviewed & are unremarkable except as noted in HPI and below Exam Const: General: cooperative, healthy appearing, comfortable, no acute distress and well developed Nutritional Appearance: obese morbidly obese Orientation/consciousness: oriented to person, oriented to place, oriented to time and patient oriented x3 HENMT: Head: normal to inspection, normocephalic and atraumatic Eyes: General: appearance normal, both eyes and all related structures Neck: Neck: trachea midline and supple Resp: Effort & Inspection: normal respiratory effort, able to speak in complete sentences and abnormal respiratory pattern Cardio: Jugular venous distension: no JVD Rate: regular rate Rhythm: regular rhythm Heart sounds: S1 normal heart sound present, S2 normal heart sound present and Murmur heart sound present Skin: General skin exam: normal color and no rashes or lesions noted Neuro: General: oriented to person, oriented to place, oriented to time and patient oriented x3 Cognition (Neuro): normal cognition Speech: normal speech Gait exam (Neuro): Normal gait present Extrem: General: edema (bilateral LE pitting ) bilateral Objective Data Vital Signs Vital Signs: Vital Signs - 24 hr 04/12/20 13:47 04/12/20 14:00 04/12/20 18:00 Temperature 36.2 C L 36.7 C 36.7 C Pulse Rate 70 119 H 68 Respiratory Rate 24 H 20 20 Blood Pressure 114/54 L 109/57 L 110/61 Pulse Oximetry 98 92 91 04/12/20 19:56 04/12/20 22:00 04/12/20 22:23 Temperature 36.2 C L Pulse Rate 77 59 L 96 Respiratory Rate 20 20 20 Blood Pressure 104/52 L Pulse Oximetry 92 96 64 L 04/12/20 23:33 04/13/20 02:00 04/13/20 06:00 Temperature 36.1 C L 36.1 C L Pulse Rate 63 65 65 Respiratory Rate 17 22 H 20 Blood Pressure 112/58 L 98/55 L Pulse Oximetry 93 96 96 04/13/20 07:51 04/13/20 10:00 04/13/20 12:20 Temperature 36.4 C Pulse Rate 72 70 Respiratory Rate 18 16 Blood Pressure 98/54 L Pulse Oximetry 96 96 94 Intake/Output Intake/Output: Intake & Output 04/10/20 04/11/20 04/12/20 04/13/20 23:59 23:59 23:59 23:59 Intake Total 2445 1330 2220 880 Output Total 2250 2725 2125 Balance 195 -1395 95 880 Meds/Results Medications: Active Medications Generic Name Dose Route Start Last Admin Trade Name Freq PRN Reason Stop Dose Admin Acetaminophen 650 mg 04/09/20 18:11 04/11/20 18:05 Acetaminophen 325 Mg Tablet PO 650 mg Q6H PRN Administration Mild Pain (1-3) Benzonatate 200 mg 04/13/20 13:00 Benzonatate 100 Mg Capsule PO TID [facility] Budesonide/Formoterol Fumarate 2 puff 04/12/20 09:35 04/13/20 07:49 Budesonide/Form 160-4.5 Mcg (*Sp) INHALATION 2 puff Q12HRT [facility] Administration Dextrose 12.5 gm 04/09/20 11:50 Dextrose 50% 25 Gm/50 Ml Syringe IV PUSH PRN PRN Hypoglycemia Protocol Fenofibrate 48 mg 1
--- NOTE | 2020-04-13 13:21 | PM.IMPN ---
Progress Note: A&P Assessment and Plan (1) Morbid obesity: Code(s): E66.01 - Morbid (severe) obesity due to excess calories Status: Chronic Assessment and Plan: Adviced to loose weight 04/13/2020 patient is 63-year-old female with history sleep apnea on CPAP patient does not wear her CPAP as recommended patient is morbidly obese with BMI of 61, has a history sleep apnea, and COPD presented emergency department with a complaint short of breath patient was found to have acute respiratory failure with hypercapnia most likely secondary hypoventilation due to morbid obesity as well as exacerbation of COPD, patient was placed on BiPAP initially chest x-ray shows Cardiomegaly and enlargement of the central pulmonary arteries which could be seen with pulmonary arterial hypertension most likely secondary untreated sleep apnea, consulted executive office manager further recommendatiion, Also COPD patient was being treated with Solu-Medrol and updraft, Patient was seen by Dr. Conner stopped Solu-Medrol, started the patient on symbicort and Spiriva and and switch patient over CPAP from BiPAP and adjusted her CPAP settings, however patient still requiring 5 L of oxygen and patient is not on oxygen at home, will do 6 minutes walk prior to discharge and plan, patient with history chronic kidney disease her creatinine was 5.1 upon arrival today is 3.3 with gentle hydration, seen by nephrology and suspect fast decline in kidney function secondary to hypotension and dehydration, CT scan of the abdomen suspected UTI urine culture is growing somonela sensitive to Rocephin will continue and monitor, on 04/12 incidentally was found the patient's left pupil is larger than right, patient was not aware of the different, patient does not have any complaints of visual issues, to further evaluate patient had a CT scan of the head which is negative for any acute injury, clinical symptoms are improving patient does not require oxygen at home will need home O2 evaluation before discharge (2) Acute renal failure: Code(s): N17.9 - Acute kidney failure, unspecified Status: Acute Assessment and Plan: Creat is 5.1, pt has history of ckd, stage 3, continue to monitor renal function. (3) Acute respiratory failure with hypoxia and hypercapnia: Code(s): J96.01 - Acute respiratory failure with hypoxia; J96.02 - Acute respiratory failure with hypercapnia Status: Acute Assessment and Plan: cxr shows cardiomegaly and enlargement of the central pulmonary arteries which could be seen with pulmonary arterial hypertension. Pt being treated for copd excerbation. (4) Elevated liver enzymes: Code(s): R74.8 - Abnormal levels of other serum enzymes Status: Acute Assessment and Plan: Continue to monitor. (5) Acute dehydration: Code(s): E86.0 - Dehydration Status: Acute Assessment and Plan: Pt is on iv fluids continue to watch peripheral for any further edema. Pt has history of chronic lymphedema, history of chronic venous insufficiency. (6) Urinary tract infection: Code(s): N39.0 - Urinary tract infection, site not specified Status: Acute Assessment and Plan: Pt is started on iv rocephin, uc shows salmonella species sensitive to Rocephin (7) COPD exacerbation: Code(s): J44.1 - Chronic obstructive pulmonary disease with (acute) exacerbation Status: Acute Assessment and Plan: Pt is on bipap started on IV steroids and breathing treatments (8) Diastolic dysfunction: Code(s): I51.89 - Other ill-defined heart diseases Status: Chronic Assessment and Plan: Pt will benefit from echocardiogram. (9) Type 2 diabetes mellitus with diabetic polyneuropathy: Qualifiers: Diabetes mellitus manager terminal insulin use: with halfway use Qualified Code(s): E11.42 - Type 2 diabetes mellitus with diabetic polyneuropathy; Z79.4 - [facility] ([facility]
[2020-04-13 13:52] LABS: SARS-CoV-2 RNA PCR Negative
[2020-04-13] MEDS: BENZONATATE 100 MG CAPSULE PO (15:49)
[2020-04-13 16:40] LABS: Glucose Point of Care 118 (65-105)
--- NOTE | 2020-04-13 16:49 | PM.PNNEP ---
Progress Note: A&P Assessment and Plan (1) Acute renal failure: Code(s): N17.9 - Acute kidney failure, unspecified Status: Acute Assessment and Plan: suspect due to relatively hypotension, pre-renal factors, ongoing use of diuretics and UTI disease progression is possible but seems to rapid of a decline creatinine appears to have peaked/plateaued at 5.1mg/dl and is improving follow trend of repeat labs and urine output (2) Chronic kidney disease, stage IV (severe): Code(s): N18.4 - Chronic kidney disease, stage 4 (severe) Status: Chronic Assessment and Plan: baseline creatinine ~ 2.0 - 2.5mg/dl in the last year secondary to HTN, diabetes, AMAIRANI/obesity, and vascular disease (3) Acute respiratory failure with hypoxia and hypercapnia: Code(s): J96.01 - Acute respiratory failure with hypoxia; J96.02 - Acute respiratory failure with hypercapnia Status: Acute Assessment and Plan: complicated by history of COPD and AMAIRANI and likely obesity hypoventilation syndrome off BIPAP therapy Pulmonary recommendations noted follow respiratory status (4) Urinary tract infection: Code(s): N39.0 - Urinary tract infection, site not specified Status: Acute Assessment and Plan: urine culture with Salmonella playing a role with #1(?) on antibiotics (5) Elevated liver enzymes: Code(s): R74.8 - Abnormal levels of other serum enzymes Status: Acute Assessment and Plan: due to relative hypotension(?) RUQ ultrasound with evidence of liver cirrhosis follow trend (6) Diabetes: Code(s): E11.9 - Type 2 diabetes mellitus without complications Status: Acute Assessment and Plan: follow accuchecks glycemic control Will continue to follow. Subjective Date/time seen: 04/13/20 16:49 Respiratory status remains stable if not continues to improve; good urine output and kidney function is continuing to improved; no apparent distress voiced at this time; no events overnight or earlier this AM; no acute complaints to report currently. Exam Narrative: Exam Narrative: General: Large Cacuasian female in NAD Heart: normal S1 and S2; no rub Lungs: coarse and decreased at bases Abdomen: soft, nontender, nondistended, positive bowel sounds Extremities: no cyanosis or clubbing; 1+ edema Skin: no rash or nodules Objective Data Vital Signs Vital Signs: Vital Signs Temp Pulse Resp BP Pulse Ox 04/13/20 15:50 96 04/13/20 14:40 94 04/13/20 14:00 36.6 C 67 16 98/56 L 97 04/13/20 12:20 94 04/13/20 10:00 36.4 C 70 16 98/54 L 96 04/13/20 07:51 72 18 96 04/13/20 06:00 36.1 C L 65 20 98/55 L 96 04/13/20 02:00 36.1 C L 65 22 H 112/58 L 96 04/12/20 23:33 63 17 93 04/12/20 22:23 96 20 64 L 04/12/20 22:00 36.2 C L 59 L 20 104/52 L 96 04/12/20 19:56 77 20 92 04/12/20 18:00 36.7 C 68 20 110/61 91 Intake/Output Intake/Output: Intake & Output 04/10/20 04/11/20 04/12/20 04/13/20 23:59 23:59 23:59 23:59 Intake Total 2445 1330 2220 880 Output Total 2250 2725 2125 Balance 195 -1395 95 880 Meds/Results Medications: Active Medications Generic Name Dose Route Start Last Admin Trade Name Freq PRN Reason Stop Dose Admin Acetaminophen 650 mg 04/09/20 18:11 04/11/20 18:05 Acetaminophen 325 Mg Tablet PO 650 mg Q6H PRN Administration Mild Pain (1-3) Benzonatate 100 mg 04/13/20 17:00 04/13/20 15:49 Benzonatate 100 Mg Capsule PO 100 mg TID [facility] Administration Budesonide/Formoterol Fumarate 2 puff 04/12/20 09:35 04/13/20 07:49 Budesonide/Form 160-4.5 Mcg (*Sp) INHALATION 2 puff Q12HRT [facility] Administration Dextrose 12.5 gm 04/09/20 11:50 Dextrose 50% 25 Gm/50 Ml Syringe IV PUSH PRN PRN Hypoglycemia Protocol Fenofibrate 48 mg 04/10/20 09:00 04/13/20 09:02 Fenofibrate,Micronized 48 Mg Tablet
[2020-04-13] MEDS: guaiFENesin 12 HR 600 MG TABCR PO (20:51)
[2020-04-13] MEDS: INSULIN GLARGINE (*BKC) 100 UNITS/ML 20 UNITS SUB-Q (21:26)
[2020-04-13 22:16] LABS: Glucose Point of Care 144 (65-105)
[2020-04-14] VITALS (10 sets, daily range): BP systolic 98–110; BP diastolic 20–52; PULSE 70–117; RESP 20–22; TEMP 36.1–36.6; O2SAT 86–95
[2020-04-14] MEDS: BENZOCAINE/MENTHOL (*BKC) 18 EA LOZENGE 1 LOZENGE PO ×2 (02:18→09:07)
[2020-04-14 02:41] LABS: Glucose Point of Care 163 (65-105)
[2020-04-14 04:37] LABS: Base Excess ABG -0.7 mEq/l (+/-2.0); Carboxyhemoglobin 0.2 % THb (0-2.0); Fractional Inspired Oxygen 25 %; HCO3 ABG 25.1 mEq/l (22.0-26.0); Methemoglobin ABG 0.3 %THb (0-1.5); Oxygen Content ABG 15.4 %vol (16.0-22.0); Oxygen Saturation ABG 91.8 % (95.0-100.0); Oxyhemoglobin 91.3 % THb (90.0-100.0); PCO2 ABG 45.7 mmHg (35.0-45.0); Reduced Hemoglobin 8.2 %THb (0-5.0); pH ABG 7.357 (7.350-7.450)
[2020-04-14 04:38] LABS: Device NASAL CANNULA; Modified Allen's Test Pass; Site Drawn LEFT RADIAL
[2020-04-14 06:06] LABS: Hematocrit 35.8 % (37.0-47.0); Hemoglobin 10.9 g/dL (12.0-15.0); Mean Corpuscular HGB Conc 30.4 g/dl (32-36); Mean Corpuscular Hemoglobin 28.3 pg (26-34); Mean Platelet Volume 11.9 fl (7.4-10.4); Platelet Count Result 141 k/mm3 (150-375); Red Blood Count 3.85 M/mm3 (4.2-5.4); Red Cell Distribution Width 15.1 % (11.5-14.5); White Blood Count 6.2 K/mm3 (4.5-10.0)
[2020-04-14 06:16] LABS: Alanine Aminotransferase 76 U/L (4-35); Albumin Level 3.1 g/dL (3.5-5.1); Alkaline Phosphatase 78 U/L (38-126); Anion Gap 7 mmol/L (8-16); Aspartate Amino Transferase 26 U/L (14-36); Bilirubin,Total 0.5 mg/dL (0.2-1.3); Blood Urea Nitrogen 72 mg/dL (7-17); Calcium 8.3 mg/dL (8.4-10.2); Carbon Dioxide 27 mmol/L (22-30); Chloride 104 mmol/L (98-107); Estimated CRCL calculation 29 ml/min; Estimated Glomerular Filt Rate 17; Glucose 116 mg/dL (65-105); Magnesium 2.1 mg/dL (1.6-2.3); Phosphorus 4.1 mg/dL (2.5-4.5); Potassium 3.6 mmol/L (3.4-5.0); Sodium 138 mmol/L (137-145)
[2020-04-14] MEDS: SODIUM BICARBONATE TAB 650 MG TABLET PO (06:23)
[2020-04-14] MEDS: HEPARIN SODIUM 5,000 UNITS/ML VIAL 5000 UNITS SUB-Q (06:23)
[2020-04-14 08:09] LABS: Glucose Point of Care 99 (65-105)
[2020-04-14] MEDS: POTASSIUM CHLORIDE 20 MEQ TABLET 40 MEQ PO (08:16)
[2020-04-14] MEDS: guaiFENesin 12 HR 600 MG TABCR PO (08:17)
[2020-04-14] MEDS: FENOFIBRATE,MICRONIZED 48 MG TABLET PO (08:17)
[2020-04-14] MEDS: BENZONATATE 100 MG CAPSULE PO ×2 (08:17→13:10)
[2020-04-14] MEDS: SIMVASTATIN 20 MG TABLET PO (08:18)
[2020-04-14] MEDS: TOLNAFTATE 1% POWDER 45 GM BTL 1 APPLIC TOPICAL (08:18)
--- NOTE | 2020-04-14 10:04 | PM.PNPUL ---
Progress Note: A&P Assessment and Plan (1) AMAIRANI (obstructive sleep apnea): Code(s): G47.33 - Obstructive sleep apnea (adult) (pediatric) Status: Acute Assessment and Plan: Continue CPAP 18 cm H20 QHS and while napping in the afternoons (2) COPD (chronic obstructive pulmonary disease): Qualifiers: COPD type: unspecified COPD Qualified Code(s): J44.9 - Chronic obstructive pulmonary disease, unspecified Code(s): J44.9 - Chronic obstructive pulmonary disease, unspecified Status: Acute Assessment and Plan: - continue Spiriva 18 mcg 1 puff daily - continue Symbicort 160/4.5 mcg 2 puffs bid - will add tessalon perles 100 mg PO TID for cough - outpatient PFT and 6 minute walk test ordered. Time Spent With Patient Time with patient: 15 - 25 minutes Subjective Date/time seen: 04/14/20 10:04 Interval history: Feeling well. Still not able to wear CPAP throughout the night likely due from uncomfortable mask. May do better with nasal pillows and chin strap. Review of Systems Review of Systems: All systems reviewed & are unremarkable except as noted in HPI and below Exam Const: General: cooperative, healthy appearing, comfortable, no acute distress and well developed Nutritional Appearance: obese morbidly obese Orientation/consciousness: oriented to person, oriented to place, oriented to time and patient oriented x3 HENMT: Head: normal to inspection, normocephalic and atraumatic Eyes: General: appearance normal, both eyes and all related structures Neck: Neck: trachea midline and supple Resp: Effort & Inspection: normal respiratory effort, able to speak in complete sentences and abnormal respiratory pattern Cardio: Jugular venous distension: no JVD Rate: regular rate Rhythm: regular rhythm Heart sounds: S1 normal heart sound present, S2 normal heart sound present and Murmur heart sound present Skin: General skin exam: normal color and no rashes or lesions noted Neuro: General: oriented to person, oriented to place, oriented to time and patient oriented x3 Cognition (Neuro): normal cognition Speech: normal speech Gait exam (Neuro): Normal gait present Extrem: General: edema (bilateral LE pitting ) bilateral Objective Data Vital Signs Vital Signs: Vital Signs - 24 hr 04/13/20 12:20 04/13/20 14:00 04/13/20 14:40 Temperature 36.6 C Pulse Rate 67 Respiratory Rate 16 Blood Pressure 98/56 L Pulse Oximetry 94 97 94 04/13/20 15:50 04/13/20 18:00 04/13/20 19:22 Temperature 36.5 C Pulse Rate 69 Respiratory Rate 18 Blood Pressure 100/56 L Pulse Oximetry 96 96 94 04/13/20 21:08 04/13/20 21:28 04/13/20 22:00 Temperature 36.3 C L Pulse Rate 65 69 69 Respiratory Rate 18 18 22 H Blood Pressure 103/53 L Pulse Oximetry 96 92 96 04/13/20 23:17 04/14/20 02:00 04/14/20 04:44 Temperature 36.1 C L Pulse Rate 70 Respiratory Rate 20 20 Blood Pressure 105/20 L Pulse Oximetry 94 95 04/14/20 05:55 04/14/20 08:26 04/14/20 09:23 Temperature 36.1 C L 36.6 C Pulse Rate 117 H 74 Respiratory Rate 20 22 H Blood Pressure 98/51 L 110/52 L Pulse Oximetry 95 93 91 Intake/Output Intake/Output: Intake & Output 04/11/20 04/12/20 04/13/20 04/14/20 23:59 23:59 23:59 23:59 Intake Total 1330 2220 1970 630 Output Total 2725 2125 300 1475 Balance -1395 95 1670 -845 Meds/Results Medications: Active Medications Generic Name Dose Route Start Last Admin Trade Name Freq PRN Reason Stop Dose Admin Acetaminophen 650 mg 04/09/20 18:11 04/11/20 18:05 Acetaminophen 325 Mg Tablet PO 650 mg Q6H PRN Administration Mild Pain (1-3) Benzocaine 1 lozenge 04/14/20 02:00 04/14/20 09:07 Benzocaine/Menthol (*Bkc) 18 Ea Lozenge PO 1 lozenge PRN PRN Administration Sore Throat Benzonatate 100 mg 04/13/20 17:00 04/14/20 08:17 Benzonatate 100 Mg Capsule PO 100 mg TID [facility] Administration Budesonide/Formoter
[2020-04-14 11:33] LABS: Glucose Point of Care 215 (65-105)
[2020-04-14] MEDS: INSULIN ASPART (*BKC) 100 UNITS/ML 15 UNITS SUB-Q (11:36)
[2020-04-14] MEDS: INSULIN ASPART (*BKC) 100 UNITS/ML SUB-Q (11:36)
--- NOTE | 2020-04-14 11:59 | HOMEO2EVAL ---
Home Oxygen Evaluation RC: Home Oxygen (O2) Evaluation Start: 04/14/20 07:49 Freq: ONCE Status: Active Protocol: RPE Activity Type Activity Date Activity User E-Sign Co-Sign Detail Recorded Client Recorded Date Recorded By Document 04/14/20 10:40 QUYEN [email or web address] 04/14/20 11:43 QUYEN Document 04/14/20 10:45 QUYEN [email or web address] 04/14/20 11:43 QUYEN Document 04/14/20 10:50 QUYEN [email or web address] 04/14/20 11:43 QUYEN Document 04/14/20 11:05 QUYEN [email or web address] 04/14/20 11:43 QUYEN 04/14/20 04/14/20 04/14/20 10:40 10:45 10:50 Home O2 Evaluation Test Phase Resting Exercise Exercise Oxygen Delivery Room Air Room Air Nasal Cannula Oxygen Flow Rate (L/min) 1 Pulse Oximetry (90-100 %) 90 86 L 90 Pulse Rate (60-100 beats/min) 74 89 90 Activity Tolerance Fair Home Oxygen Evaluation Comments Treatment Charges O2 Evaluation 04/14/20 11:05 Home O2 Evaluation Test Phase Resting Oxygen Delivery Room Air Oxygen Flow Rate (L/min) Pulse Oximetry (90-100 %) 91 Pulse Rate (60-100 beats/min) 78 Activity Tolerance Home Oxygen Evaluation Comments Pt requires 1Liter home O2 with exertion/ activity Treatment Charges
--- NOTE | 2020-04-14 11:59 | PCRCNOTE ---
Home O2 Eval complete. Pt requires 1 Liter with activity. Will arrange with [facility]. Will deliver tank to room prior to discharge
--- NOTE | 2020-04-14 12:07 | PM.DS ---
DS: Admitting Diagnosis Admitting Diagnosis Admitting Diagnosis: acute renal failure/acure respiratory failure w hy DS: Discharge Diagnosis Discharge Diagnosis (1) Morbid obesity: Code(s): E66.01 - Morbid (severe) obesity due to excess calories Status: Chronic Assessment and Plan: Adviced to loose weight 04/13/2020 Chief complaint: acute renal failure/acure respiratory failure w hy Narrative: Rosario Ruiz is a 64 year old female with history of diastolic CHF, COPD, history of DVT/PE, history of kidney stone, chronic lymphedema, history of chronic venous insufficiency, diabetes mellitus, obstructive sleep apnea and hyperlipidemia, couple of days ago she had a temperature and she came into ED but was discharged back to the assisted living. Yesterday she was sob and her sugars were running high and she felt unwell. She hit the life alert button and the assisted living facility brought her to ED for further evaluation. Pt is on BIPAP presently for SOB and is being monitored for acute respiratory failure with hypoxia and hypercapnia, elevated liver enzymes, acute dehydration, ARF and urinary tract infection. Pt is SOB at rest so history taken mainly from daughter. Pt seen earlier in the day at 1015 Am in ICU. (2) Acute renal failure: Code(s): N17.9 - Acute kidney failure, unspecified Status: Acute Assessment and Plan: Creat is 5.1, pt has history of ckd, stage 3, continue to monitor renal function. (3) Acute respiratory failure with hypoxia and hypercapnia: Code(s): J96.01 - Acute respiratory failure with hypoxia; J96.02 - Acute respiratory failure with hypercapnia Status: Acute Assessment and Plan: cxr shows cardiomegaly and enlargement of the central pulmonary arteries which could be seen with pulmonary arterial hypertension. Pt being treated for copd excerbation. (4) Elevated liver enzymes: Code(s): R74.8 - Abnormal levels of other serum enzymes Status: Acute Assessment and Plan: Continue to monitor. (5) Acute dehydration: Code(s): E86.0 - Dehydration Status: Acute Assessment and Plan: Pt is on iv fluids continue to watch peripheral for any further edema. Pt has history of chronic lymphedema, history of chronic venous insufficiency. (6) Urinary tract infection: Code(s): N39.0 - Urinary tract infection, site not specified Status: Acute Assessment and Plan: Pt is started on iv rocephin, uc shows salmonella species sensitive to Rocephin (7) COPD exacerbation: Code(s): J44.1 - Chronic obstructive pulmonary disease with (acute) exacerbation Status: Acute Assessment and Plan: Pt is on bipap started on IV steroids and breathing treatments (8) Diastolic dysfunction: Code(s): I51.89 - Other ill-defined heart diseases Status: Chronic Assessment and Plan: Pt will benefit from echocardiogram. (9) Type 2 diabetes mellitus with diabetic polyneuropathy: Qualifiers: Diabetes mellitus residential insulin use: with watermelon inspector use Qualified Code(s): E11.42 - Type 2 diabetes mellitus with diabetic polyneuropathy; Z79.4 - terminal make up operator (current) use of insulin Code(s): E11.42 - Type 2 diabetes mellitus with diabetic polyneuropathy Status: Chronic Assessment and Plan: Accuchecks, SSI, watch pt is on steroids DS: Summary Hospital Course Reason for hospitalization: Chief complaint: acute renal failure/acure respiratory failure w hy Narrative: Rosario Ruiz is a 64 year old female with history of diastolic CHF, COPD, history of DVT/PE, history of kidney stone, chronic lymphedema, history of chronic venous insufficiency, diabetes mellitus, obstructive sleep apnea and hyperlipidemia, couple of days ago she had a temperature and she came into ED but was discharged back to the assisted living. Yesterday she was sob and her sugars were running high and she felt unwell. She hit t
== END 2020-04-14 14:00 | disposition home health service (06) | DRG 682 ==
LOC: ANHED 00:38 → ANHICU 06:22 → ANHIMU 04-11 08:20 → ANH2MED 04-11 13:27 → ANHICU 04-15 13:16 → ANHIMU 04-15 13:16
PROVIDERS: Internal Medicine Critical Care Medicine; Admitting Provider Family Medicine; Emergency Provider Emergency Medicine; PCP Internal Medicine; Visit Provider Family Medicine
DX: N17.9 Acute kidney failure, unspecified (principal); J96.22 Acute and chronic respiratory failure with hypercapnia; J96.21 Acute and chronic respiratory failure with hypoxia; Z68.43 Body mass index [BMI] 50.0-59.9, adult; I50.32 Chronic diastolic (congestive) heart failure; N39.0 Urinary tract infection, site not specified; J44.1 Chronic obstructive pulmonary disease with (acute) exacerbation; E66.2 Morbid (severe) obesity with alveolar hypoventilation; I13.0 Hypertensive heart and chronic kidney disease with heart failure and stage 1 through stage 4 chronic kidney disease, or unspecified chronic kidney disease; E87.2 Acidosis; Z20.828 Contact with and (suspected) exposure to other viral communicable diseases; E11.22 Type 2 diabetes mellitus with diabetic chronic kidney disease; N18.4 Chronic kidney disease, stage 4 (severe); E11.42 Type 2 diabetes mellitus with diabetic polyneuropathy; E86.0 Dehydration; B96.89 Other specified bacterial agents as the cause of diseases classified elsewhere; I89.0 Lymphedema, not elsewhere classified; G47.33 Obstructive sleep apnea (adult) (pediatric); E78.5 Hyperlipidemia, unspecified; I27.20 Pulmonary hypertension, unspecified; R74.8 Abnormal levels of other serum enzymes; E55.9 Vitamin D deficiency, unspecified; Z86.711 Personal history of pulmonary embolism; Z86.718 Personal history of other venous thrombosis and embolism; Z79.4 Long term (current) use of insulin; Z90.710 Acquired absence of both cervix and uterus; Z90.49 Acquired absence of other specified parts of digestive tract
CPT/HCPCS: 36415; 36600; 51701; 51702; 70450; 71045; 71046; 74176; 76705; 80053; 81001; 82375; 82805; 83050; 83605; 83735; 83880; 84100; 84300; 84540; 85025; 85027; 85055; 85610; 85730; 86140; 87040; 87077; 87086; 87088; 87186; 87635; 93005; 94002; 94003; 94618; 94640; 94660; 96361; 96365; 97110; 97116; 97161; 97165; 97530; 97535; 99291; A9270; C9803; G0378; J0696; J1644; J1650; J1815; J2920; J2930; J7030; U0003

== ENCOUNTER 2020-05-30 12:41 | Outpatient (NON) | payer MEDICARE, MEDICAID, SELFPAY ==
[2020-05-30 14:18] LABS: Add Urine Microscopic? YES; Appearance Urine Cloudy (Clear); Bacteria Urine 4+ /hpf; Bilirubin Urine Negative (Negative); Blood Urine 1+ (Negative); Color Urine Yellow (Yellow); Glucose Urine UA Negative (Negative); Ketones Urine Negative (Negative); Leukocyte Esterase Ur 3+ LEU/UL (Negative); Mucus Urine Rare /lpf; Nitrate Urine Positive (Negative); Protein Urine 1+ mg/dL (Negative); Specific Grav Ur 1.012 (1.001-1.035); Squamous Epithelial Cell Urine Moderate /hpf (Few); Urobilinogen Urine Negative mg/dL (<2.0); WBC Clumps Urine Present /HPF; WBC Urine >75 /hpf
== END 2020-05-30 12:42 ==
PROVIDERS: PCP Internal Medicine; Visit Provider Nurse Practitioner
DX: N39.0 Urinary tract infection, site not specified (principal)
CPT/HCPCS: 81001; 87077; 87086; 87088; 87186

== ENCOUNTER 2020-06-15 12:16 | Outpatient (NON) | payer MEDICARE, MEDICAID, SELFPAY ==
[2020-06-15 12:57] LABS: Add Urine Microscopic? YES; Appearance Urine Cloudy (Clear); Bacteria Urine 3+ /hpf; Bilirubin Urine Negative (Negative); Blood Urine 1+ (Negative); Color Urine Yellow (Yellow); Glucose Urine UA Negative (Negative); Ketones Urine Negative (Negative); Leukocyte Esterase Ur 3+ LEU/UL (NEGATIVE); Mucus Urine Few /lpf; Nitrate Urine Negative (Negative); Protein Urine Negative (Negative); Specific Grav Ur 1.009 (1.001-1.035); Squamous Epithelial Cell Urine Few /hpf (Few); Urobilinogen Urine Negative mg/dL (<2.0); WBC Clumps Urine Present /HPF; WBC Urine >75 /hpf (0-3)
== END 2020-06-15 12:17 ==
PROVIDERS: PCP Internal Medicine; Visit Provider Nurse Practitioner
DX: N39.0 Urinary tract infection, site not specified (principal)
CPT/HCPCS: 81001

== ENCOUNTER 2020-06-27 11:25 | Outpatient (NON) | payer MEDICARE, MEDICAID, SELFPAY ==
[2020-06-27 12:35] LABS: Add Urine Microscopic? YES; Appearance Urine Cloudy (Clear); Bacteria Urine 2+ /hpf; Bilirubin Urine Negative (Negative); Blood Urine 1+ (Negative); Color Urine Yellow (Yellow); Glucose Urine UA Negative (Negative); Ketones Urine Negative (Negative); Leukocyte Esterase Ur 3+ LEU/UL (Negative); Mucus Urine Rare /lpf; Nitrate Urine Positive (Negative); Protein Urine Negative (Negative); Squamous Epithelial Cell Urine Rare /hpf (Few); Urobilinogen Urine Negative mg/dL (<2.0); WBC Clumps Urine Present /HPF; WBC Urine >75 /hpf
== END 2020-06-27 11:26 ==
PROVIDERS: PCP Internal Medicine; Visit Provider Nurse Practitioner
DX: N39.0 Urinary tract infection, site not specified (principal); I13.0 Hypertensive heart and chronic kidney disease with heart failure and stage 1 through stage 4 chronic kidney disease, or unspecified chronic kidney disease; N18.9 Chronic kidney disease, unspecified; I50.9 Heart failure, unspecified; I87.2 Venous insufficiency (chronic) (peripheral); I89.0 Lymphedema, not elsewhere classified
CPT/HCPCS: 81001; 87077; 87086; 87088; 87186

== ENCOUNTER 2020-07-11 11:46 | Outpatient (NON) | payer MEDICARE, BC, SELFPAY ==
[2020-07-11 12:35] LABS: Anion Gap 3 mmol/L (8-16); Blood Urea Nitrogen 32 mg/dL (7-17); Calcium 8.8 mg/dL (8.4-10.2); Carbon Dioxide 32 mmol/L (22-30); Chloride 104 mmol/L (98-107); Estimated Glomerular Filt Rate 20; Glucose 104 mg/dL (65-105); Potassium 3.9 mmol/L (3.4-5.0); Sodium 139 mmol/L (137-145)
== END 2020-07-11 11:47 ==
PROVIDERS: Family Provider Internal Medicine; PCP Internal Medicine; Visit Provider Internal Medicine Nephrology
DX: N18.4 Chronic kidney disease, stage 4 (severe) (principal)
CPT/HCPCS: 80048

== ENCOUNTER 2020-07-19 08:34 | Outpatient (NON) | payer MEDICARE, MEDICAID, SELFPAY ==
[2020-07-19 08:59] LABS: Add Urine Microscopic? YES; Appearance Urine Cloudy (Clear); Bacteria Urine 3+ /hpf; Bilirubin Urine Negative (Negative); Blood Urine 1+ (Negative); Color Urine Yellow (Yellow); Glucose Urine UA Negative (Negative); Ketones Urine Negative (Negative); Leukocyte Esterase Ur 3+ LEU/UL (Negative); Mucus Urine Rare /lpf; Nitrate Urine Positive (Negative); Protein Urine 1+ mg/dL (Negative); Specific Grav Ur 1.011 (1.001-1.035); Squamous Epithelial Cell Urine Occasional /hpf (Few); Urobilinogen Urine Negative mg/dL (<2.0); WBC Urine >75 /hpf
== END 2020-07-19 08:35 ==
PROVIDERS: PCP Internal Medicine; Visit Provider Nurse Practitioner
DX: N39.0 Urinary tract infection, site not specified (principal)
CPT/HCPCS: 81001; 87077; 87086; 87088; 87186

== ENCOUNTER 2020-08-05 09:21 | Outpatient (CLI) | payer MEDICARE, MEDICAID, SELFPAY ==
--- NOTE | ~2020-08-05 | XR_ITS ---
XR abdomen/kub 1V DATE: 08/05/2020 09:48 INDICATION: Kidney calculus TECHNIQUE: Standing AP views. Patient was unable to tolerate supine position. COMPARISON: 04/09/[address] abdomen pelvis FINDINGS: Soft tissue detail is limited due to the upright position and body habitus. Faintly calcifi ed calculi of the lower pole of the left kidney are suggested. Lower pole right renal calcified calcu keith is suggested as well. The psoas shadows appear intact. No visceromegaly is evident. The bowel gas pattern is unremarkable, without apparent evidence of obstruction. Surgical clips overlie the right lower quadrant. IMPRESSION: Bilateral faintly calcified renal calculi Reviewed, dictated and finalized at [facility]. Reviewed, dictated and finalized at [facility]. ERCIAL APPRAISER
== END 2020-08-05 09:22 | disposition home or self-care (01) ==
PROVIDERS: PCP Internal Medicine; Visit Provider Urology
DX: N20.0 Calculus of kidney (principal)
CPT/HCPCS: 74018

== ENCOUNTER 2020-11-24 09:20 | Inpatient (IN) | payer MEDICARE, MEDICAID, SELFPAY ==
[2020-11-24] VITALS (18 sets, daily range): BP systolic 103–129; BP diastolic 38–55; PULSE 84–110; RESP 14–22; TEMP 36.6–37.1; O2SAT 89–100; BMI 65.6
--- NOTE | ~2020-11-24 | XR_ITS ---
EXAMINATION: XR chest 1V portable DATE: 11/26/2020 14:45 INDICATION: Respiratory failure. Confusion. TECHNIQUE: frontal view of the chest was obtained. COMPARISON: Chest radiograph dated 11/25/2020 FINDINGS: Persistent indistinct increased interstitial pattern and mild patchy groundglass opacities in the meliton ateral mid and lower lung zones along with some peribronchial cuffing most likely unchanged mild pulm onary edema although differential includes pneumonia. No pneumothorax or definitive pleural effusion. Cardiomegaly. Moderate thoracic spondylosis. Old fracture at the left humeral head which is fixed wi th a pair of lag screws and washers. IMPRESSION: 1. Unchanged interstitial and mild airspace opacities in bilateral mid and lower lung zones most like ly mild pulmonary edema although differential includes pneumonia. 2. Cardiomegaly. Reviewed, dictated and finalized at location [facility]. IMPRESSION: 1. Unchanged interstitial and mild airspace opacities in bilateral mid and lowe r lung zones most likely mild pulmonary edema although differential includes pn eumonia. 2. Cardiomegaly.
--- NOTE | ~2020-11-24 | US_ITS ---
EXAMINATION: US venous doppler [facility] DATE: 11/24/2020 16:52 INDICATION: Lower limb swelling TECHNIQUE: Grayscale ultrasound images without and with compression and Doppler ultrasound images of the bilateral lower extremity veins were obtained. COMPARISON: None. FINDINGS: The visualized portions of right common femoral vein, profunda (deep) femoral vein, femoral vein, pop liteal vein, posterior tibial veins, gastrocnemius vein and greater saphenous vein outflow are patent . The visualized portions of left common femoral vein, profunda femoral vein, femoral vein, popliteal v ein, posterior tibial veins, gastrocnemius vein and greater saphenous vein outflow are patent. IMPRESSION: 1. No deep venous thrombosis in either lower limb. Reviewed, dictated and finalized at location [facility].
--- NOTE | ~2020-11-24 | XR_ITS ---
EXAMINATION: XR chest 1V portable DATE: 11/25/2020 14:30 INDICATION: Hypervolemia. TECHNIQUE: A single frontal view of the chest was obtained. COMPARISON: Chest single view 04/09/2020, CT abdomen and pelvis 04/09/2020 FINDINGS: There is a diffuse interstitial pattern, consistent with mild pulmonary edema. No pleural e ffusion or pneumothorax. Cardiomegaly is noted. IMPRESSION: 1. Mild pulmonary edema. 2. Cardiomegaly. Reviewed, dictated and finalized at location [facility].
--- NOTE | 2020-11-24 09:25 | ECG_ITS ---
Measurements Intervals [place] Rate: 93 P: -7 W[place]: 177 QRS: 81 QRSD: 92 T: 27 QT: 369 QTc: 461 Interpretive Statements SINUS RHYTHM INCOMPLETE RIGHT BUNDLE BRANCH BLOCK LOW QRS VOLTAGE IN PRECORDIAL LEADS BORDERLINE ST-T WAVE ABNORMALITY- ANT/INF LEADS BASELINE ARTIFACT- I, II, III, AVR, AVL, AVF, V1-V3 BORDERLINE ECG Electronically Signed On 11-24-2020 13:41:23 CDT by Kenny Ramos D.O.
[2020-11-24 10:12] LABS: Add Urine Microscopic? YES; Appearance Urine Cloudy (Clear); Bacteria Urine 3+ /hpf; Bilirubin Urine Negative (Negative); Blood Urine 2+ (Negative); Color Urine Amber (Yellow); Glucose Urine UA Negative (Negative); Ketones Urine Negative (Negative); Leukocyte Esterase Ur 3+ LEU/UL (Negative); Mucus Urine Rare /lpf; Nitrate Urine Negative (Negative); Protein Urine 2+ mg/dL (Negative); Specific Grav Ur 1.014 (1.001-1.035); Squamous Epithelial Cell Urine Occasional /hpf (Few); Urobilinogen Urine Negative mg/dL (<2.0); WBC Clumps Urine Present /HPF; WBC Urine >75 /hpf
[2020-11-24 10:50] LABS: Basophils Percent Auto 0.4 % (0.2-1.2); Eosinophils Absolute Auto 0.2 K/mm3 (0-0.3); Eosinophils Percent Auto 2.2 % (0-4.4); Hematocrit 41.2 % (37.0-47.0); Hemoglobin 11.9 g/dL (12.0-15.0); Immature Granulocyte Absolute 0.09 K/mm3 (0.00-0.031); Immature Granulocyte Percent A 1.1 % (0-0.5); Lymphocytes Absolute Auto 0.68 K/mm3 (0.9-3.2); Lymphocytes Percent Auto 8.3 % (18.3-44.2); Mean Corpuscular HGB Conc 28.9 g/dl (32-36); Mean Corpuscular Hemoglobin 28.1 pg (26-34); Mean Corpuscular Volume 97.4 fl (80-100); Mean Platelet Volume 11.8 fl (7.4-10.4); Monocytes Absolute Auto 0.5 K/mm3 (0.1-0.6); Monocytes Percent Auto 5.7 % (2.6-8.5); Neutrophils Absolute Auto 6.8 K/mm3 (1.3-6.7); Neutrophils Percent Auto 82.3 % (45.5-73.1); Platelet Count Result 159 k/mm3 (150-375); Red Blood Count 4.23 M/mm3 (4.2-5.4); Red Cell Distribution Width 15.2 % (11.5-14.5); White Blood Count 8.2 K/mm3 (4.5-10.0)
[2020-11-24 11:01] LABS: Anion Gap 9 mmol/L (8-16); Blood Urea Nitrogen 42 mg/dL (7-17); Calcium 9.1 mg/dL (8.4-10.2); Carbon Dioxide 27 mmol/L (22-30); Chloride 106 mmol/L (98-107); Estimated CRCL calculation 28 ml/min; Estimated Glomerular Filt Rate 16; Glucose 234 mg/dL (65-105); Potassium 4.6 mmol/L (3.4-5.0); Sodium 142 mmol/L (137-145)
[2020-11-24] MEDS: SODIUM CHLORIDE 0.9% IV 500 ML 999 ML IV CONT (12:00)
--- NOTE | 2020-11-24 12:15 | ED.WEAKNESS ---
HPI - Weakness General Chief complaint: Weakness Stated complaint: Gen Weakness History of Present Illness HPI Narrative: Patient is a 65-year-old female who presents ER with weakness and shaking. Reports shaking began today. She is also having dysuria and incontinence. Patient is morbidly obese with large amount of edema in the lower extremities. She reports she ambulates with a walker and cannot today. No fevers or chills or sweats. Denies chest pain or shortness of breath. Has no additional complaints. Related Data Home Medications Medication Instructions Recorded Confirmed insulin glargine 100 unit/mL (3 56 unit SUB-Q HS ml 08/20/19 07/25/20 mL) subcutaneous pen acetaminophen 650 mg 650 mg PO Q8H tablet 04/08/20 07/25/20 tablet,extended release Allergies Allergy/AdvReac Type Severity Reaction Status Date / Time adhesive tape Allergy Unknown RASH Verified 11/24/20 10:55 atorvastatin Allergy Unknown rash Verified 11/24/20 10:55 ciprofloxacin Allergy Unknown rash Verified 11/24/20 10:55 nitrofurantoin Allergy Unknown rash Verified 11/24/20 10:55 rosuvastatin Allergy Unknown Rash Verified 11/24/20 10:55 Penicillins AdvReac Intermediate Rash Verified 11/24/20 10:55 Review of Systems Review of Systems: All systems reviewed & are unremarkable except as noted in HPI and below Constitutional: Constitutional: Denies chills, Denies fever(s) and Reports weakness Cardiovascular: Cardiovascular: Denies chest pain, Denies rapid heart rate and Denies radiating jaw, neck or arm pain Respiratory: Respiratory: Denies cough and Denies dyspnea Gastrointestinal: Gastrointestinal: Denies abdominal pain, Denies nausea and Denies vomiting Genitourinary: Genitourinary: Denies hematuria, Reports nocturia, Reports dysuria, Denies flank pain and Reports urinary incontinence Neurologic: Denies focal weakness, Denies numbness and Denies weakness Comments: Tremors PMFSH Past Medical History Medical History (Updated 11/24/20 @ 14:27 by Silas Mcdonald MD) Anemia, unspecified Chronic kidney disease, stage IV (severe) Colon polyps COPD (chronic obstructive pulmonary disease) Diastolic dysfunction DVT (deep venous thrombosis) Kidney stones Lymphedema Personal history of pulmonary embolism Pure hypercholesterolemia, unspecified Recurrent postcoital urinary tract infection Sleep apnea 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 2 diabetes mellitus with stage 3 chronic kidney disease Venous insufficiency Vitamin D deficiency, unspecified Surgical History Surgical History H/O colonoscopy H/O hysterectomy for benign disease H/O thymectomy History of cholecystectomy History of renal stent S/P carpal tunnel release S/P removal of ovarian cyst Family History Family History Mother Family history of diabetes mellitus in first degree relative Patient's mother is Diabetes mellitus Father Family history of heart disease in male family member before age 55 Family history of coronary artery disease Social History Social History Social History: Patient lives at home alone. She designates her daughter, Ioana Castillo, as her surrogate MDM. Her PCP is Dr. Rooney. She wishes to be a full code Smoking packs per day: 1 Smoking cigarettes per day: 20.0 Years smoked: 40 Smoking pack-years: 40.00 Smoking status: Former smoker Tobacco type: cigarettes Second hand tobacco smoke exposure: Yes Smoking end date: 06/17/14 Alcohol intake: never Substance use: never Substance use type: does not use Additional living arrangements comments: Lives alone in apartment Gender identity (if verbalized by the patient): Female Spiritual care concerns: No Agree to blood products: Yes Exam Narrative: Exam Narrat
--- NOTE | 2020-11-24 12:31 | PC.NURSE ---
Attempted to assist patient ambulate with a walker. Patient was unable to take a step. Assisted the patient back into bed and repositioned patient. Notified
--- NOTE | 2020-11-24 14:00 | PM.IMHP ---
H&P: HPI History of Present Illness Date/Time: 11/24/20 14:00 Chief Complaint: Weakness. Narrative: This is a 65-year-old female with history of DVT and pulmonary embolism, insulin-dependent diabetes, morbid obesity, congestive heart failure, sleep apnea on oxygen at night, and dyslipidemia presented to the emergency department earlier today via EMS from home with complaints of weakness. She lives in a senior apartment and is able to get around her apartment though she admits to dyspnea on exertion a majority of the time. Over the last couple of weeks she has become gradually more weak, which she attributes to ever increasing lower extremity edema which is now up to the hips. She also reports chills, urinary frequency, and malodorous urine. She came in for evaluation today at the encouragement of her daughter as she has been spending more time in bed due to feeling poorly and she is now having difficulties walking on her own due to edema and weakness. She denies fever, sweats, cold and flu symptoms, chest pain, pleuritic pain, cough, nausea, vomiting, and diarrhea. Of note, she has not been taking insulin for a couple of months due to reported insurance issues, and her glucose has been running high, typically in the mid 200s. Review of Systems Review of Systems: Narrative: Twelve systems were reviewed with pertinent positives and negatives as per HPI. She has chronic orthopnea and she has slept in a recliner for well over 1 year. She is intolerant to CPAP and is on oxygen at nighttime. She suspects she has gained weight but does not weigh herself at home. No syncope or near syncope. Occasional constipation. Appetite has been okay. No recent falls. Except as documented, all other systems were reviewed and are negative. [facility] Past Medical History Medical History (Updated 11/24/20 @ 22:10 by Crystal Ramos PA-C) Chronic anemia Chronic kidney disease, stage IV (severe) Baseline creatinine appears to be around 3.0. Chronic obstructive pulmonary disease Colon polyps Diastolic dysfunction Dyslipidemia History of deep venous thrombosis History of pulmonary embolism History of recurrent UTIs Insulin dependent type 2 diabetes mellitus Kidney stones Lymphedema Morbid obesity Obesity hypoventilation syndrome Obstructive sleep apnea Intolerant to CPAP. On nocturnal oxygen. Venous insufficiency Vitamin D deficiency, unspecified Surgical History Surgical History (Updated 11/24/20 @ 22:04 by Crystal Ramos PA-C) History of carpal tunnel release History of cholecystectomy History of colonoscopy with polypectomy History of hysterectomy for benign disease History of removal of ovarian cyst History of renal stent History of thymectomy Family History Family History Mother Family history of diabetes mellitus in first degree relative Patient's mother is Diabetes mellitus Father Family history of heart disease in male family member before age 55 Family history of coronary artery disease Social History Social History (Updated 11/24/20 @ 22:05 by Crystal Ramos PA-C) Social History: The patient lives in a retirement apartment in [place]. She has a 40 pack-year smoking history and quit in 2014. No alcohol or illicit substance abuse. She designates her daughter, Ximena Foster as her surrogate decision maker and she wishes to be a full code. Sexual Orientation (if Verbalized by the Patient): Straight or Heterosexual Meds Home Medications and Allergies Home Medications Medication Instructions Recorded Confirmed Type insulin glargine 100 unit/mL (3 56 unit SUB-Q HS ml 08/20/19 11/24/20 History mL) subcutaneous pen acetaminophen 650 mg 650 mg PO BID PRN tablet 04/08/20 11/24/20 History tablet,extended release benzocaine-menthol [Chloraseptic 1 liv PO PRN PRN #18 ea 04/14/20 11/24/20 Rx Sore Throat] bud
--- NOTE | 2020-11-24 15:02 | ADMGEN ---
This patient, Rosario Ruiz, was admitted to 3 [facility] Surg Room 316-01. Patient/family oriented to hospital policies and general routines including ID bracelet, bed and alarms, visiting hours, pain management, procedures, bathroom and other care routines, personal items, smoking policy, room service/diet, and visiting hours. Information on how to activate the Rapid Response Team has been discussed. Patient/Family are encouraged to report perceived risks to care and to ask questions if they do not understand what they are told or what they should do.
[2020-11-24 16:42] LABS: Hemoglobin A1C 7.4 % (<5.7)
[2020-11-24] MEDS: HEPARIN SODIUM 5,000 UNITS/ML VIAL 5000 UNITS SUB-Q (20:18)
[2020-11-24] MEDS: INSULIN GLARGINE (*BKC) 100 UNITS/ML 56 UNITS SUB-Q (22:13)
[2020-11-25] MEDS: HYDROcodone/acetaminophen (*CRX) 5-325 MG TABLET 1 TAB PO ×4 (00:43→20:28)
[2020-11-25 01:55] LABS: Glucose Point of Care 210 mg/dl (65-105)
[2020-11-25 05:50] VITALS: BP 126/48; PULSE 81; RESP 22; TEMP 36.6; O2SAT 92
[2020-11-25 06:49] LABS: Hematocrit 39.1 % (37.0-47.0); Mean Corpuscular HGB Conc 28.1 g/dl (32-36); Mean Corpuscular Hemoglobin 27.9 pg (26-34); Mean Corpuscular Volume 99.2 fl (80-100); Mean Platelet Volume 12.3 fl (7.4-10.4); Platelet Count Result 142 k/mm3 (150-375); Red Blood Count 3.94 M/mm3 (4.2-5.4); White Blood Count 8.4 K/mm3 (4.5-10.0)
[2020-11-25 07:06] LABS: Potassium 4.5 mmol/L (3.4-5.0)
[2020-11-25 07:13] LABS: Alanine Aminotransferase 11 U/L (4-35); Albumin Level 3.5 g/dL (3.5-5.1); Alkaline Phosphatase 118 U/L (38-126); Anion Gap 8 mmol/L (8-16); Aspartate Amino Transferase 18 U/L (14-36); Bilirubin,Total 0.3 mg/dL (0.2-1.3); Blood Urea Nitrogen 51 mg/dL (7-17); Calcium 8.3 mg/dL (8.4-10.2); Carbon Dioxide 23 mmol/L (22-30); Chloride 106 mmol/L (98-107); Estimated CRCL calculation 22 ml/min; Estimated Glomerular Filt Rate 12; Glucose 214 mg/dL (65-105); Magnesium 2.2 mg/dL (1.6-2.3); Sodium 137 mmol/L (137-145)
[2020-11-25 07:43] LABS: Glucose Point of Care 223 mg/dl (65-105)
[2020-11-25] MEDS: INSULIN ASPART (*BKC) 100 UNITS/ML 10 UNITS SUB-Q ×2 (08:06→16:42)
[2020-11-25] MEDS: FUROSEMIDE INJ 40 MG/4 ML VIAL 20 MG IV PUSH (08:09)
[2020-11-25] MEDS: SIMVASTATIN 20 MG TABLET PO (08:11)
[2020-11-25] MEDS: HEPARIN SODIUM 5,000 UNITS/ML VIAL 5000 UNITS SUB-Q ×2 (08:13→20:22)
[2020-11-25 08:48] VITALS: BMI 10.0
--- NOTE | 2020-11-25 09:17 | PM.CNNEP ---
Assessment and Plan Assessment and plan (1) CKD (chronic kidney disease) stage 4, GFR 15-29 ml/min: Code(s): N18.4 - Chronic kidney disease, stage 4 (severe) Status: Acute Assessment and Plan: The patient has chronic kidney disease. Her baseline creatinine runs between 2.5 and 3. This is most likely due to diabetes, and pre renal azotemia. Sleep apnea could be playing a role as well. (2) Generalized edema: Code(s): R60.1 - Generalized edema Status: Acute Assessment and Plan: The patient has edema from multiple issues. She has pulmonary hypertension most likely due to sleep apnea and COPD. She also had pulmonary emboli which would contribute to the pulmonary hypertension. Contributing to the swelling as well, however her albumin is not very low. Her chronic kidney disease is probably playing a role as well. This is sort of a chicken and eggs phenomena because part of her chronic renal disease is due to pre renal azotemia and need for diuretics which turns around hurts her kidneys as well. Will try diuretics and see if we can improve some of the swelling. I continued to encourage her to use the CPAP mask. (3) Obesity hypoventilation syndrome: Code(s): E66.2 - Morbid (severe) obesity with alveolar hypoventilation Status: Acute Assessment and Plan: The patient has chronic CO2 retention. (4) Obstructive sleep apnea: Code(s): G47.33 - Obstructive sleep apnea (adult) (pediatric) Status: Chronic Assessment and Plan: The patient refuses uses CPAP mask. She does wear oxygen at night. (5) Chronic anemia: Code(s): D64.9 - Anemia, unspecified Status: Acute Assessment and Plan: Hemoglobin is mildly low. This may be related to her kidney disease. (6) Urinary tract infection: Code(s): N39.0 - Urinary tract infection, site not specified Status: Acute Assessment and Plan: The patient had urinalysis and culture she is on antibiotics. (7) Insulin dependent type 2 diabetes mellitus: Code(s): E11.9 - Type 2 diabetes mellitus without complications; Z79.4 - jail (current) use of insulin Status: Acute Assessment and Plan: The patient is getting insulin and sliding scale. History of Present Illness Reason for Consult Consult date: 11/25/20 Chief Complaint Chief complaint: uti,ambulatory didfunction History of Present Illness Narrative: Rosario is a very pleasant 65-year-old lady who has multiple medical problems including chronic edema, sleep apnea which is untreated, diabetes, hyperlipidemia, COPD, history of DVT and pulmonary emboli, morbid obesity, kidney stones, diabetes, and vitamin-D deficiency. The patient has gradually worsened as far as swelling goes over the last few weeks. The swelling is up to the hips now. She said she was fine until yesterday when she was so weak she could not get out of bed so her daughter called the ambulance and had her brought over to the ER at [place]. In the ER she was evaluated. She was found to be very swollen. She was also very weak. She was admitted to the hospital. The patient denies chest pain. She is short of breath with any exertion. She has no belly pain nausea vomiting diarrhea constipation. She is not on any new medications. She is not taking any nonsteroidal anti-inflammatory agents. Review of Systems Constitutional: Constitutional: Reports no additional constitutional complaints Eyes: Eyes: Reports no additional eye complaints ENT: Reports system reviewed and no additional complaints, except as documented Cardiovascular: Cardiovascular: Reports no additional cardiovascular complaints Respiratory: Respiratory: Reports no additional respiratory complaints Gastrointestinal: Gastrointestinal: Reports no additional gastrointestinal complaints Genitourinary: Genitourinary: Reports no additional female genitourinary complaints Musculoskeletal:
[2020-11-25 10:06] VITALS: O2SAT 93
[2020-11-25 11:07] VITALS: O2SAT 90
[2020-11-25 11:21] VITALS: BMI 10.0
[2020-11-25] MEDS: BUMETANIDE INJ 1 MG/4 ML VIAL IV PUSH ×2 (11:26→16:45)
[2020-11-25 11:28] VITALS: PULSE 80; RESP 20; O2SAT 90
[2020-11-25 12:08] LABS: Glucose Point of Care 176 mg/dl (65-105)
--- NOTE | 2020-11-25 12:28 | PM.IMPN ---
Progress Note: A&P Assessment and Plan (1) Generalized weakness: Code(s): R53.1 - Weakness Status: Acute Assessment and Plan: Likely deconditioning since the patient states that this has gradually kind of been getting worse since the pandemic -continue PT and OT -she will need SNF at discharge (2) Urinary tract infection: Code(s): N39.0 - Urinary tract infection, site not specified Status: Acute Assessment and Plan: UA suspicious for UTI -continue ceftriaxone -monitor urine cultures and adjust medications as needed (3) Diastolic congestive heart failure: Code(s): I50.30 - Unspecified diastolic (congestive) heart failure Status: Acute Assessment and Plan: Echo today showin. Complete two-dimensional, color flow and Doppler transthoracic echocardiogram is performed. 2. Left ventricular chamber dimension is normal. 3. Left ventricular systolic function is normal, estimated at 60-65%. 4. There is moderately increased left ventricular wall thickness. 5. The left ventricular diastolic function is abnormal. 6. E/e' 13 is mildly elevated. 7. There is mild pulmonic regurgitation. 8. There is small circumferential pericardial effusion. -patient is significantly overloaded. Continue Bumex -nephrology consulted -will check CXR (4) Insulin dependent type 2 diabetes mellitus: Code(s): E11.9 - Type 2 diabetes mellitus without complications; Z79.4 - care home (current) use of insulin Status: Acute Assessment and Plan: Last glucose 176 -patient's A1c is 7.4 -continue decreased doses of home insulin. Will do 45 units (home dose 56) of Lantus as well as 10 of insulin with meals (usually she takes 15 at home). -Monitor blood glucose and adjust medications as needed for changes. (5) Chronic kidney disease, stage IV (severe): Code(s): N18.4 - Chronic kidney disease, stage 4 (severe) Status: Chronic Assessment and Plan: Last Cr 3.8 -Dr. Bowen onboard -Pt significantly fluid overloaded -Will implement fluid restriction -Pt Cr has a wide range but looks like baseline is around 2.4-2.9 (6) Obstructive sleep apnea: Code(s): G47.33 - Obstructive sleep apnea (adult) (pediatric) Status: Chronic Assessment and Plan: Refuses cpap (7) Chronic anemia: Code(s): D64.9 - Anemia, unspecified Status: Acute Assessment and Plan: hgb stable at 11.0 -monitor for bleeding (8) Chronic obstructive pulmonary disease: Code(s): J44.9 - Chronic obstructive pulmonary disease, unspecified Status: Acute Assessment and Plan: No wheezing on exam, no signs of exacerbation Time Spent With Patient Time with patient: 25 - 35 minutes Subjective Date/time seen: 11/25/20 12:28 Interval history: Pt is a 65 y/o female here for weakness. Pt was seen today and states she still feels very weak and not able to use her legs very much. She denies pain, shortness of breath, chest pain, fevers, abdominal pain, diarrhea or constipation. She has not had any nausea or vomiting and is eating and drinking well. She says that she has not got the COVID-19 vaccine because she heard that it can affect her kidneys and she already has renal failure. She has been essentially in 1 room quarantining and has porgressively gotten weaker and more swollen. Review of Systems Review of Systems: All systems reviewed & are unremarkable except as noted in HPI and below Exam Narrative: Exam Narrative: General: morbidly obese patient resting comfortably in the chair in no acute distress HEENT: normocephalic Neck: supple Neuro: Alert and oriented x4. Cranial nerves 2-12 intact. Equal strength the upper lower extremities 5/5. Able to do [id number] and rapid alternating movements CV:RRR Resp: Crackles at the bases, no wheezing or rhonchi Abd: Soft, obese and non distended. No
[2020-11-25 13:31] LABS: Hemoglobin A1C 7.4 % (<5.7)
[2020-11-25 13:42] VITALS: BP 96/43; PULSE 72; RESP 18; TEMP 36.8; O2SAT 96
--- NOTE | 2020-11-25 15:07 | ECHO_ITS ---
Patient Info Name: Rosario Ruiz Age: 65 years : 1955 Gender: Female Ht: 66 in Wt: 385 lbs BSA: 2.97 m2 HR: 78 bpm BP: 126 / 48 mmHg Exam Date: 11/25/2020 10:26 AM Exam Location: [facility] Patient Status: Outpatient Admit Date: 11/24/2020 Staff Ordering Physician: Crystal Ramos PA-C Master Sheet Clerk: Hero Diaz RDCS, RT Attending Provider: Thania Horan PA-C Referring Physician: Richard JACOBSON; Exam Type: CA echo doppler color flow Study Info Indications I10 - Essential (primary) hypertension Complete two-dimensional, color flow and Doppler transthoracic echocardiogram is performed. Summary 1. Complete two-dimensional, color flow and Doppler transthoracic echocardiogram is performed. 2. Left ventricular chamber dimension is normal. 3. Left ventricular systolic function is normal, estimated at 60-65%. 4. There is moderately increased left ventricular wall thickness. 5. The left ventricular diastolic function is abnormal. 6. E/e' 13 is mildly elevated. 7. There is mild pulmonic regurgitation. 8. There is small circumferential pericardial effusion. Left Ventricle E/e' 13 is mildly elevated. Left ventricular chamber dimension is normal. Left ventricular systolic function is normal, estimated at 60-65%. There is moderately increased left ventricular wall thickness. The left ventricular diastolic function is abnormal. Right Ventricle Right ventricular systolic function is normal and with normal TAPSE 2.8 cm.. Right ventricular chamber dimension is normal. Left Atria Left atrial chamber dimension is normal. Right Atria Right atrial chamber dimension is normal. Aortic Valve The aortic valve is trileaflet. There is no aortic valve stenosis. There is no aortic valve regurgitation. Pulmonic Valve There is mild pulmonic regurgitation. Mitral Valve There is no mitral valve stenosis. There is no mitral valve regurgitation. Tricuspid Valve There is no tricuspid valve regurgitation. Pericardium/Pleural There is small circumferential pericardial effusion. Inferior Vena Cava Normal inferior vena cava with >50% collapse upon inspiration consistent with normal right atrial pressure, 5 mmHg. Aorta The aortic root size at the sinus of Valsalva is normal. Left Ventricular Outflow Tract Name Value Normal LVOT 2D LVOT Diameter 2.0 cm LVOT Doppler LVOT Peak Gradient 2 mmHg LVOT Mean Gradient 2 mmHg LVOT VTI 17 cm LVOT VTI/AV VTI Ratio 0.6 LVOT Stroke Volume 53 ml LVOT CO 4.3 l/min LVOT CI 1.5 l/min/m2 Mitral Valve Name Value Normal MV Doppler MV Decel Cocke 272 cm/s2 MV
[2020-11-25 16:43] LABS: Glucose Point of Care 197 mg/dl (65-105)
[2020-11-25] MEDS: INSULIN GLARGINE (*BKC) 100 UNITS/ML 45 UNITS SUB-Q (20:19)
[2020-11-25] MEDS: TOLNAFTATE 1% POWDER 45 GM BTL 1 APPLIC TOPICAL (20:22)
[2020-11-25 21:47] LABS: Glucose Point of Care 157 mg/dl (65-105)
[2020-11-25 22:00] VITALS: BP 94/48; PULSE 65; RESP 18; TEMP 36.4; O2SAT 94
[2020-11-26] VITALS (8 sets, daily range): BP systolic 92–108; BP diastolic 50–52; PULSE 75–90; RESP 18–24; TEMP 36.5–36.9; O2SAT 88–97
[2020-11-26] MEDS: HYDROcodone/acetaminophen (*CRX) 5-325 MG TABLET 1 TAB PO ×2 (00:20→04:40)
[2020-11-26] MEDS: ONDANSETRON INJ 4 MG/2 ML VIAL IV PUSH (02:26)
[2020-11-26 06:43] LABS: Hematocrit 33.6 % (37.0-47.0); Hemoglobin 10.2 g/dL (12.0-15.0); Mean Corpuscular HGB Conc 30.4 g/dl (32-36); Mean Corpuscular Hemoglobin 27.9 pg (26-34); Mean Corpuscular Volume 91.8 fl (80-100); Mean Platelet Volume 12.8 fl (7.4-10.4); Platelet Count Result 128 k/mm3 (150-375); Red Blood Count 3.66 M/mm3 (4.2-5.4); Red Cell Distribution Width 14.6 % (11.5-14.5); White Blood Count 7.2 K/mm3 (4.5-10.0)
[2020-11-26 06:54] LABS: Albumin Level 3.3 g/dL (3.5-5.1); Anion Gap 8 mmol/L (8-16); Blood Urea Nitrogen 57 mg/dL (7-17); Carbon Dioxide 23 mmol/L (22-30); Chloride 105 mmol/L (98-107); Estimated CRCL calculation 23 ml/min; Estimated Glomerular Filt Rate 13; Glucose 144 mg/dL (65-105); Phosphorus 5.6 mg/dL (2.5-4.5); Potassium 3.9 mmol/L (3.4-5.0); Sodium 136 mmol/L (137-145)
[2020-11-26 07:13] LABS: Creatinine Urine 81.8 mg/dL; Total Protein Urine Random 76 mg/dL; Ur Ttl Prot Creatinine Ratio 0.93 mg/mg (0-0.20)
[2020-11-26 07:14] LABS: Sodium Urine Random 36 meq/L
[2020-11-26 08:22] LABS: Glucose Point of Care 166 mg/dl (65-105)
[2020-11-26] MEDS: HEPARIN SODIUM 5,000 UNITS/ML VIAL 5000 UNITS SUB-Q ×2 (08:36→21:18)
[2020-11-26] MEDS: BUMETANIDE INJ 1 MG/4 ML VIAL IV PUSH ×2 (08:36→16:36)
[2020-11-26] MEDS: SIMVASTATIN 20 MG TABLET PO (08:37)
[2020-11-26] MEDS: TOLNAFTATE 1% POWDER 45 GM BTL 1 APPLIC TOPICAL ×2 (08:37→21:19)
--- NOTE | 2020-11-26 11:54 | PM.PNNEP ---
Progress Note: A&P Assessment and Plan (1) CKD (chronic kidney disease) stage 4, GFR 15-29 ml/min: Code(s): N18.4 - Chronic kidney disease, stage 4 (severe) Status: Acute Assessment and Plan: The patient has chronic kidney disease. Her baseline creatinine runs between 2.5 and 3. This is most likely due to diabetes, and pre renal azotemia. Sleep apnea could be playing a role as well. the patient's creatinine was 3.8 yesterday and has fallen to 3.6 today. (2) Generalized edema: Code(s): R60.1 - Generalized edema Status: Acute Assessment and Plan: The patient has edema from multiple issues. She has pulmonary hypertension most likely due to sleep apnea and COPD. She also had pulmonary emboli which would contribute to the pulmonary hypertension. Contributing to the swelling as well, however her albumin is not very low. Her chronic kidney disease is probably playing a role as well. She is getting diuretics. Urine output is not being tallied (3) Obesity hypoventilation syndrome: Code(s): E66.2 - Morbid (severe) obesity with alveolar hypoventilation Status: Acute Assessment and Plan: The patient has chronic CO2 retention. this may be an issue now with her somnolence. Will check a blood gas. She is on some oxygen but her O2 sats 88 so I do not think this is retention due to too much oxygen. (4) Obstructive sleep apnea: Code(s): G47.33 - Obstructive sleep apnea (adult) (pediatric) Status: Chronic Assessment and Plan: The patient refuses uses CPAP mask. She does wear oxygen at night. (5) Chronic anemia: Code(s): D64.9 - Anemia, unspecified Status: Acute Assessment and Plan: Hemoglobin is mildly low. This may be related to her kidney disease. (6) Urinary tract infection: Code(s): N39.0 - Urinary tract infection, site not specified Status: Acute Assessment and Plan: The patient had urinalysis and culture she is on antibiotics. 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 Subjective Date/time seen: 11/26/20 11:54 Interval history: Patient is sleepy. Wakens a little bit when I shake her shoulder. Daughter in the room. She says she has been like this all morning. Review of Systems Cardiovascular: Cardiovascular: Reports no additional cardiovascular complaints Respiratory: Respiratory: Reports no additional respiratory complaints Gastrointestinal: Gastrointestinal: Reports no additional gastrointestinal complaints Genitourinary: Genitourinary: Reports no additional female genitourinary complaints Exam Narrative: Exam Narrative: WDWN in NAD skin no rash head ncat lungs clear without wheezes cor reg no rub abd BS+ nontender and soft ext 2+ edema. Objective Data Vital Signs Vital Signs: Vital Signs - 24 hr 11/25/20 13:42 11/25/20 22:00 11/26/20 06:00 Temperature 36.8 C 36.4 C 36.7 C Pulse Rate 72 65 90 Respiratory Rate 18 18 20 Blood Pressure 96/43 L 94/48 L 108/50 L Pulse Oximetry 96 94 88 L Intake/Output Intake/Output: Intake & Output 11/23/20 11/24/20 11/25/20 11/26/20 23:59 23:59 23:59 23:59 Intake Total 550 1850 360 Output Total 300 Balance 250 1850 360 Meds/Results Medications: Active Medications Generic Name Dose Route Start Last Admin Trade Name Freq PRN Reason Stop Dose Admin Acetaminophen 650 mg 11/24/20 21:48 Acetaminophen 325 Mg Tablet PO BID PRN pain 1-3 Hydrocodone Bitart/Acetaminophen 1 tab 11/24/20 13:20 11/26/20 04:40 Hydrocodone/Acetaminophen (*Crx) 5-325 Mg Tablet PO 1 tab Q4H PRN Administration Pain Rated 4-6 Albuterol 2 puff 11/24/20 21:48 Albuterol Sulfate (*Sp)
[2020-11-26 12:25] LABS: Glucose Point of Care 193 mg/dl (65-105)
[2020-11-26 12:42] LABS: Base Excess ABG -9.3 mEq/l (+/-2.0); Carboxyhemoglobin 0.8 % THb (0-2.0); Fractional Inspired Oxygen 24 %; HCO3 ABG 19.9 mEq/l (22.0-26.0); Methemoglobin ABG 0.1 %THb (0-1.5); Oxygen Content ABG 13.2 %vol (16.0-22.0); Oxyhemoglobin 82.2 % THb (90.0-100.0); PCO2 ABG 59.2 mmHg (35.0-45.0); PO2 ABG 55.7 mmHg (80.0-100.0); PO2 FiO2 Ratio Arterial Blood 2.32 %; Reduced Hemoglobin 16.9 %THb (0-5.0); Total Hemoglobin 11.4 g/dL (12.0-18.0)
[2020-11-26 13:54] LABS: Device NASAL CANNULA; Site Drawn LEFT BRACHIAL; pH ABG 7.144 (7.350-7.450)
--- NOTE | 2020-11-26 14:16 | PM.IMPN ---
Progress Note: A&P Assessment and Plan (1) Acute respiratory failure with hypoxia and hypercapnia: Code(s): J96.01 - Acute respiratory failure with hypoxia; J96.02 - Acute respiratory failure with hypercapnia Status: Acute Assessment and Plan: Pt was somnolent during the exam but did not display any focal neurological deficits -abg shows hypercapnia without compensation due to renal failure -will start bipap 14/6 rate of 20 and recheck abg in 1.5 hours -Will start bicarb, Dr. Bowen recommended 1300BID -Move to IMU and monitor closely -likely hypoventilation syndrome but will recheck CXR (2) Generalized weakness: Code(s): R53.1 - Weakness Status: Acute Assessment and Plan: Likely deconditioning since the patient states that this has gradually kind of been getting worse since the pandemic -continue PT and OT -she will need SNF at discharge (3) Urinary tract infection: Code(s): N39.0 - Urinary tract infection, site not specified Status: Acute Assessment and Plan: Urine culture growing ecoli and sensitivity is pending -continue ceftriaxone -monitor urine cultures and adjust medications as needed (4) Diastolic congestive heart failure: Code(s): I50.30 - Unspecified diastolic (congestive) heart failure Status: Acute Assessment and Plan: Echo today showin. Complete two-dimensional, color flow and Doppler transthoracic echocardiogram is performed. 2. Left ventricular chamber dimension is normal. 3. Left ventricular systolic function is normal, estimated at 60-65%. 4. There is moderately increased left ventricular wall thickness. 5. The left ventricular diastolic function is abnormal. 6. E/e' 13 is mildly elevated. 7. There is mild pulmonic regurgitation. 8. There is small circumferential pericardial effusion. -patient is significantly overloaded. 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 Will do 45 units (home dose 56) of Lantus as well as 10 of insulin with meals (usually she takes 15 at home). -Monitor blood glucose and adjust medications as needed for changes. (6) Chronic kidney disease, stage IV (severe): Code(s): N18.4 - Chronic kidney disease, stage 4 (severe) Status: Chronic Assessment and Plan: Last Cr 3.6 -Dr. Bowen onboard -Pt significantly fluid overloaded -Continue fluid restriction and diuretics -Pt Cr has a wide range but looks like baseline is around 2.4-2.9 (7) Obstructive sleep apnea: Code(s): G47.33 - Obstructive sleep apnea (adult) (pediatric) Status: Chronic Assessment and Plan: Refuses cpap and now in respiratory failure -see above (8) Chronic anemia: Code(s): D64.9 - Anemia, unspecified Status: Acute Assessment and Plan: hgb stable at 10.2 -monitor for bleeding (9) Chronic obstructive pulmonary disease: Code(s): J44.9 - Chronic obstructive pulmonary disease, unspecified Status: Acute Assessment and Plan: No signs of exacerbation at this time -continue Symbicort, Spiriva, albuterol PRN Subjective Date/time seen: 11/26/20 14:16 Interval history: Pt is a 65 y/o female here for weakness. Pt was seen today and was somnolent and kept falling asleep during the exam. Pt states she has no pain and is still weak. She was slightly confused and thought it was 1920 and couldn't tell me the president. Pt denies nausea, vomiting, fevers, chills, constipation, diarrhea, chest pain, sob, or abdominal pain. Exam Narrative: Exam Narrative: General: morbidly obese patient resting comfortably in the
--- NOTE | 2020-11-26 15:46 | PC.NURSE ---
Patient refuses BiPAP knowing the risks involved without receiving treatment. Patient request daughter Ioana come back to visit.
--- NOTE | 2020-11-26 16:01 | PC.NURSE ---
Patient refuses BiPAP knowing the risks involved without receiving treatment. Patient request daughter, Ioana, to come back to visit. Thania SHANNON was informed of current situation and educated the patient on any possible outcome. Hold transfer until Ioana meets with Thania Horan.
[2020-11-26] MEDS: INSULIN ASPART (*BKC) 100 UNITS/ML 10 UNITS SUB-Q (16:36)
[2020-11-26] MEDS: SODIUM BICARBONATE TAB 650 MG TABLET 1300 MG PO (16:36)
[2020-11-26 17:34] LABS: Glucose Point of Care 181 mg/dl (65-105)
[2020-11-26 17:56] LABS: SARS-CoV-2 RNA PCR Negative
--- NOTE | 2020-11-26 18:36 | PC.NURSE ---
Patient changed her mind. She stated, I do not want to ! I will use the BiPAP. Heriberto Puente was contacted and assigned nurse was given orders. BiPAP for 2 HRS, ABG complex repeat, then report back to Physician results to decide HFNC or transfer to IMU with CONT BiPAP.
[2020-11-26] MEDS: INSULIN GLARGINE (*BKC) 100 UNITS/ML 45 UNITS SUB-Q (21:17)
[2020-11-26 21:30] LABS: Glucose Point of Care 143 mg/dl (65-105)
--- NOTE | 2020-11-26 21:30 | PC.NURSE ---
Patient requested bipap to be removed after 2 hours of wearing. Removed and explained to patient after reviewing new ABG results, that it is in her best interest to have bipap on over night. Patient continued to refused. Patient understands all risks associated with refusing bipap. Call made out to MIRTHA Rojas, who will also speak with patient.
[2020-11-26 21:47] LABS: Fractional Inspired Oxygen 32 %; Total Hemoglobin 10.9 g/dL (12.0-18.0)
[2020-11-26 21:48] LABS: Device NASAL CANNULA; Modified Allen's Test Pass; Site Drawn LEFT RADIAL
--- NOTE | 2020-11-26 22:00 | PM.EVENT ---
Event Note Event Note Event Note: I received a call from the patient's nurse at approximately 21:30 on 11/26/2020. It is my understanding that today she was quite somnolent when the hospitalist's was visiting with her and a blood gas demonstrated CO2 retention. RN reports that the patient is refusing BiPAP, having only tolerated it for approximately 2 hours. I came to speak with the patient and we spent approximately 15 minutes together. At the time my evaluation she is alert and oriented x4 and appears in no distress. The patient is morbidly obese and has underlying untreated obstructive sleep apnea and likely obesity hypoventilation syndrome as well. She is supposed to use a CPAP at nighttime but has not done so for many years. We discussed the pathology of CO2 retention and the importance of the BiPAP in treating such. She continues to refuse BiPAP and at this time is refusing intubation, as she is alert, oriented, ?and feels just fine.? I cannot guarantee the patient that she will not have worsening hypercarbia overnight and she understands that she may very well become more somnolent and could possibly going to a coma or even from CO2 retention. She understands this and continues to refuse BiPAP however she tells me that if we entered the room and she is unresponsive that she would be okay with intubation despite having made herself a DNR earlier today. She would not want to be on long-term life support and does not think that she would ever want to be trached if it came to that.
[2020-11-27] VITALS (11 sets, daily range): BP systolic 96–103; BP diastolic 52–69; PULSE 69–79; RESP 17–24; TEMP 36.6–37.3; O2SAT 90–96
[2020-11-27] MEDS: ONDANSETRON INJ 4 MG/2 ML VIAL IV PUSH (00:37)
--- NOTE | 2020-11-27 01:49 | PC.NURSE ---
Addendum entered by Adilene Cohen RN 11/27/20 02:47: 0205- patient calls stating she needs the bipap off because it is taking all her breath . This RN explained the bipap at how it works to remove CO2. Patient refuses to put back on bipap after again hearing the risks of not wearing it. Original Note: 0150- Patient called this RN requesting to be put on the bipap while she sleeps. Bipap applied
[2020-11-27] MEDS: HYDROcodone/acetaminophen (*CRX) 5-325 MG TABLET 1 TAB PO ×3 (02:23→21:06)
[2020-11-27 06:12] LABS: Hematocrit 34.6 % (37.0-47.0); Hemoglobin 10.3 g/dL (12.0-15.0); Immature Platelet Fraction Pct 9.9 % (0.9-11.2); Mean Corpuscular HGB Conc 29.8 g/dl (32-36); Mean Corpuscular Hemoglobin 28.1 pg (26-34); Mean Corpuscular Volume 94.5 fl (80-100); Mean Platelet Volume 11.8 fl (7.4-10.4); Platelet Count Result 147 k/mm3 (150-375); Red Blood Count 3.66 M/mm3 (4.2-5.4); Red Cell Distribution Width 14.6 % (11.5-14.5)
[2020-11-27 06:21] LABS: Alanine Aminotransferase 11 U/L (4-35); Albumin Level 3.4 g/dL (3.5-5.1); Alkaline Phosphatase 94 U/L (38-126); Anion Gap 10 mmol/L (8-16); Aspartate Amino Transferase 19 U/L (14-36); Bilirubin,Total 0.3 mg/dL (0.2-1.3); Blood Urea Nitrogen 57 mg/dL (7-17); Calcium 8.3 mg/dL (8.4-10.2); Carbon Dioxide 24 mmol/L (22-30); Chloride 106 mmol/L (98-107); Estimated CRCL calculation 21 ml/min; Estimated Glomerular Filt Rate 11; Glucose 95 mg/dL (65-105); Phosphorus 5.8 mg/dL (2.5-4.5); Potassium 3.8 mmol/L (3.4-5.0); Sodium 140 mmol/L (137-145)
[2020-11-27 08:08] LABS: Glucose Point of Care 105 mg/dl (65-105)
[2020-11-27] MEDS: SIMVASTATIN 20 MG TABLET PO (08:33)
[2020-11-27] MEDS: SODIUM BICARBONATE TAB 650 MG TABLET 1300 MG PO ×2 (08:33→17:47)
[2020-11-27] MEDS: BUMETANIDE INJ 1 MG/4 ML VIAL IV PUSH (08:33)
[2020-11-27] MEDS: HEPARIN SODIUM 5,000 UNITS/ML VIAL 5000 UNITS SUB-Q ×2 (08:36→21:00)
[2020-11-27] MEDS: TOLNAFTATE 1% POWDER 45 GM BTL 1 APPLIC TOPICAL ×2 (08:40→21:00)
--- NOTE | 2020-11-27 09:52 | PCOTNOTE ---
Attempted to see patient for OT, patient difficult to arouse or maintain wakeful state. Will attempt later when patient is less lethargic.
[2020-11-27 12:17] LABS: Glucose Point of Care 99 mg/dl (65-105)
[2020-11-27] MEDS: CALCIUM ACETATE 667 MG TABLET PO ×2 (12:46→17:48)
--- NOTE | 2020-11-27 12:54 | PCOTNOTE ---
Per patient's RN, patient not arousable to be able to participate in OT. Will continue plan of care tomorrow, 11/28/20.
--- NOTE | 2020-11-27 13:29 | PCPTNOTE ---
Per patient's RN, patient not arousable to be able to participate in PT. Will continue plan of care tomorrow, 11/28/20.
--- NOTE | 2020-11-27 14:17 | PM.IMPN ---
Progress Note: A&P Assessment and Plan (1) Acute respiratory failure with hypoxia and hypercapnia: Code(s): J96.01 - Acute respiratory failure with hypoxia; J96.02 - Acute respiratory failure with hypercapnia Status: Acute Assessment and Plan: Pt was somnolent during the exam but did not display any focal neurological deficits -abg yesterday showed hypercapnia without compensation due to renal failure and BiPAP was recommended -the patient family went back and forth on their wishes. The patient adamantly refuses the BiPAP and understands that this will prevent her from being on life support and can prevent and she still refuses. She was initially a full code and then went to a DNR and now is a modified code and would like to be intubated if she was found to be unresponsive. I spoke with Ximena the daughter about this plan of care and she agrees with it. She is going to talk to her mom and have a family meeting and we will rediscuss options tomorrow. She understands that she is likely going to worsen if we do not intervene. She says if she declines tonight to intubate her mom. Swing shift notified. -will do ABG now and 1 in the morning -continue bicarb -repeat chest x-ray still shows likely pulmonary edema. I do not suspect pneumonia since her white blood cell count is within normal limits, no fevers, and she is fluid overloaded in multiple areas (2) Generalized weakness: Code(s): R53.1 - Weakness Status: Acute Assessment and Plan: Likely deconditioning since the patient states that this has gradually kind of been getting worse since the pandemic -continue PT and OT -she will need SNF at discharge (3) Urinary tract infection: Code(s): N39.0 - Urinary tract infection, site not specified Status: Acute Assessment and Plan: Urine culture growing ecoli sensitive to ceftriaxone -sensitivity information is on the chart since information from [employer] is not pulling through (4) Diastolic congestive heart failure: Code(s): I50.30 - Unspecified diastolic (congestive) heart failure Status: Acute Assessment and Plan: Echo today showin. Complete two-dimensional, color flow and Doppler transthoracic echocardiogram is performed. 2. Left ventricular chamber dimension is normal. 3. Left ventricular systolic function is normal, estimated at 60-65%. 4. There is moderately increased left ventricular wall thickness. 5. The left ventricular diastolic function is abnormal. 6. E/e' 13 is mildly elevated. 7. There is mild pulmonic regurgitation. 8. There is small circumferential pericardial effusion. -patient is significantly overloaded. Continue Bumex -nephrology consulted (5) Insulin dependent type 2 diabetes mellitus: Code(s): E11.9 - Type 2 diabetes mellitus without complications; Z79.4 - [facility] (current) use of insulin Status: Acute Assessment and Plan: Last glucose 99 and the patient has a decreased appetite -for this reason I am going to stop her scheduled insulin and put her on sliding scale. I have decreased her Lantus and asked them not to give it if she does not eat during the day. -patient's A1c is 7.4 -Monitor blood glucose and adjust medications as needed for changes. (6) Chronic kidney disease, stage IV (severe): Code(s): N18.4 - Chronic kidney disease, stage 4 (severe) Status: Chronic Assessment and Plan: Last Cr 3.9--worsening -Dr. Bowen onboard -Pt significantly fluid overloaded but improving -Continue fluid restriction and diuretics (switch to daily) -Pt Cr has a wide range but looks like baseline is around 2.4-2.9 (7) Obstructive sleep apnea: Code(s): G47.33 - Obstructive sleep apnea (adult) (pediatric) Status: Chronic Assessment and Plan: Refuses cpap and now in respiratory failure -see above (8) Chronic anemia: Code(s): D64.
[2020-11-27 14:39] LABS: Alveolar/Arterial O2 Gradient 52.9 mmHg; Base Excess ABG -2.9 mEq/l (+/-2.0); Carboxyhemoglobin 0.3 % THb (0-2.0); Fractional Inspired Oxygen 28 %; Methemoglobin ABG 0.2 %THb (0-1.5); Oxygen Content ABG 14.3 %vol (16.0-22.0); Oxygen Saturation ABG 88.8 % (95.0-100.0); Oxyhemoglobin 90.8 % THb (90.0-100.0); PO2 ABG 67.8 mmHg (80.0-100.0); PO2 FiO2 Ratio Arterial Blood 2.42 %; Reduced Hemoglobin 8.7 %THb (0-5.0); Total Hemoglobin 11.2 g/dL (12.0-18.0)
[2020-11-27 14:41] LABS: Device NASAL CANNULA; Modified Allen's Test Pass; PCO2 ABG 66.9 mmHg (35.0-45.0); Site Drawn LEFT RADIAL; pH ABG 7.207 (7.350-7.450)
[2020-11-27 17:12] LABS: Glucose Point of Care 138 mg/dl (65-105)
[2020-11-27 18:32] LABS: Alveolar/Arterial O2 Gradient 281.7 mmHg; Base Excess ABG -1.1 mEq/l (+/-2.0); Carboxyhemoglobin 0.6 % THb (0-2.0); HCO3 ABG 27.2 mEq/l (22.0-26.0); Methemoglobin ABG 0.3 %THb (0-1.5); Oxygen Content ABG 14.6 %vol (16.0-22.0); Oxygen Saturation ABG 92.3 % (95.0-100.0); Oxyhemoglobin 92.8 % THb (90.0-100.0); PO2 ABG 75.3 mmHg (80.0-100.0); PO2 FiO2 Ratio Arterial Blood 1.25 %; Reduced Hemoglobin 6.3 %THb (0-5.0); Total Hemoglobin 11.1 g/dL (12.0-18.0)
[2020-11-27 18:33] LABS: pH ABG 7.243 (7.350-7.450)
[2020-11-27 18:34] LABS: Device NON-INVASIVE VENT; Modified Allen's Test Pass; PCO2 ABG 64.4 mmHg (35.0-45.0); Site Drawn LEFT RADIAL
[2020-11-27 18:36] LABS: Fractional Inspired Oxygen 30 %
[2020-11-27 18:37] LABS: Non-Invasive Inspiratory Pressure 12 CMH2O; Non-Invasive Vent Rate 4 /MIN
[2020-11-27 18:38] LABS: Non-Invasive Expiratory Pressure 6 CMH2O
[2020-11-27 22:15] LABS: Glucose Point of Care 143 mg/dl (65-105)
[2020-11-28] VITALS (13 sets, daily range): BP systolic 106–117; BP diastolic 51–62; PULSE 63–77; RESP 16–23; TEMP 36.2–36.4; O2SAT 91–96
[2020-11-28] MEDS: ONDANSETRON INJ 4 MG/2 ML VIAL IV PUSH ×3 (00:27→21:39)
[2020-11-28] MEDS: HYDROcodone/acetaminophen (*CRX) 5-325 MG TABLET 1 TAB PO (01:10)
[2020-11-28 05:15] LABS: Alveolar/Arterial O2 Gradient 137.3 mmHg; Base Excess ABG -0.2 mEq/l (+/-2.0); Carboxyhemoglobin 0.5 % THb (0-2.0); Fractional Inspired Oxygen 30 %; Methemoglobin ABG 0.1 %THb (0-1.5); Oxygen Saturation ABG 89.4 % (95.0-100.0); Oxyhemoglobin 89.9 % THb (90.0-100.0); PO2 ABG 66.3 mmHg (80.0-100.0); PO2 FiO2 Ratio Arterial Blood 2.21 %; Reduced Hemoglobin 9.5 %THb (0-5.0)
[2020-11-28 05:16] LABS: Modified Allen's Test Unable to perform; PCO2 ABG 64.8 mmHg (35.0-45.0); Site Drawn RIGHT RADIAL; pH ABG 7.254 (7.350-7.450)
[2020-11-28 05:17] LABS: Device NON-INVASIVE VENT
[2020-11-28 06:32] LABS: Basophils Percent Auto 0.5 % (0.2-1.2); Eosinophils Absolute Auto 0.3 K/mm3 (0-0.3); Eosinophils Percent Auto 5.5 % (0-4.4); Hematocrit 33.1 % (37.0-47.0); Immature Granulocyte Absolute 0.04 K/mm3 (0.00-0.031); Immature Granulocyte Percent A 0.7 % (0-0.5); Lymphocytes Absolute Auto 0.81 K/mm3 (0.9-3.2); Lymphocytes Percent Auto 14.3 % (18.3-44.2); Mean Corpuscular HGB Conc 30.2 g/dl (32-36); Mean Corpuscular Volume 92.7 fl (80-100); Mean Platelet Volume 12.2 fl (7.4-10.4); Monocytes Absolute Auto 0.5 K/mm3 (0.1-0.6); Monocytes Percent Auto 9.6 % (2.6-8.5); Neutrophils Absolute Auto 3.9 K/mm3 (1.3-6.7); Neutrophils Percent Auto 69.4 % (45.5-73.1); Platelet Count Result 127 k/mm3 (150-375); Red Blood Count 3.57 M/mm3 (4.2-5.4); Red Cell Distribution Width 14.6 % (11.5-14.5); White Blood Count 5.7 K/mm3 (4.5-10.0)
[2020-11-28 06:44] LABS: Anion Gap 7 mmol/L (8-16); Blood Urea Nitrogen 58 mg/dL (7-17); Calcium 8.7 mg/dL (8.4-10.2); Carbon Dioxide 28 mmol/L (22-30); Chloride 107 mmol/L (98-107); Estimated CRCL calculation 23 ml/min; Estimated Glomerular Filt Rate 13; Glucose 92 mg/dL (65-105); Sodium 142 mmol/L (137-145)
[2020-11-28 08:14] LABS: Non-Invasive Expiratory Pressure 6 CMH2O; Non-Invasive Inspiratory Pressure 12 CMH2O; Non-Invasive Vent Rate 4 /MIN
[2020-11-28 08:15] LABS: Glucose Point of Care 84 mg/dl (65-105)
[2020-11-28 08:39] LABS: PCO2 ABG 58.8 mmHg (35.0-45.0); pH ABG 7.228 (7.350-7.450)
[2020-11-28 08:40] LABS: Base Excess ABG -4.1 mEq/l (+/-2.0); PO2 ABG 75.5 mmHg (80.0-100.0)
[2020-11-28 08:41] LABS: Alveolar/Arterial O2 Gradient 83.9 mmHg; Carboxyhemoglobin 0.4 % THb (0-2.0); Methemoglobin ABG 0.2 %THb (0-1.5); Oxygen Content ABG 14.3 %vol (16.0-22.0); Oxygen Saturation ABG 92.2 % (95.0-100.0); Oxyhemoglobin 92.7 % THb (90.0-100.0); PO2 FiO2 Ratio Arterial Blood 2.36 %; Reduced Hemoglobin 6.7 %THb (0-5.0)
[2020-11-28] MEDS: SODIUM BICARBONATE TAB 650 MG TABLET 1300 MG PO (08:46)
[2020-11-28] MEDS: CALCIUM ACETATE 667 MG TABLET PO ×3 (08:46→17:57)
[2020-11-28] MEDS: BUMETANIDE INJ 1 MG/4 ML VIAL IV PUSH (08:46)
[2020-11-28] MEDS: TOLNAFTATE 1% POWDER 45 GM BTL 1 APPLIC TOPICAL ×2 (08:47→21:32)
[2020-11-28] MEDS: SIMVASTATIN 20 MG TABLET PO (08:47)
[2020-11-28] MEDS: HEPARIN SODIUM 5,000 UNITS/ML VIAL 5000 UNITS SUB-Q ×2 (08:49→21:14)
[2020-11-28 12:25] LABS: Glucose Point of Care 120 mg/dl (65-105)
--- NOTE | 2020-11-28 14:43 | PM.PNNEP ---
Progress Note: A&P Assessment and Plan (1) CKD (chronic kidney disease) stage 4, GFR 15-29 ml/min: Code(s): N18.4 - Chronic kidney disease, stage 4 (severe) Status: Acute Assessment and Plan: The patient has chronic kidney disease. Her baseline creatinine runs between 2.5 and 3. This is most likely due to diabetes, and pre renal azotemia. Sleep apnea could be playing a role as well. the patient's creatinine was 3.8 yesterday and has fallen to 3.6 today. It celi to 3.9 and now sound of 3.5. Continue current treatment (2) Generalized edema: Code(s): R60.1 - Generalized edema Status: Acute Assessment and Plan: The patient has edema from multiple issues. She has pulmonary hypertension most likely due to sleep apnea and COPD. She also had pulmonary emboli which would contribute to the pulmonary hypertension. Contributing to the swelling as well, however her albumin is not very low. Her chronic kidney disease is probably playing a role as well. She is getting diuretics. Ideally she should wear the CPAP machine with slumber but she is reluctant. (3) Obesity hypoventilation syndrome: Code(s): E66.2 - Morbid (severe) obesity with alveolar hypoventilation Status: Acute Assessment and Plan: The patient has chronic CO2 retention. The patient is bicarbonate level has been low. She was placed on oral bicarb and it is better. If her kidneys work properly she would have a high bicarb to compensate for the high pCO2. So will let the bicarb do this function. (4) Obstructive sleep apnea: Code(s): G47.33 - Obstructive sleep apnea (adult) (pediatric) Status: Chronic Assessment and Plan: The patient refuses uses CPAP mask. She does wear oxygen at night. (5) Chronic anemia: Code(s): D64.9 - Anemia, unspecified Status: Acute Assessment and Plan: Hemoglobin is mildly low. This may be related to her kidney disease. 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 Subjective Date/time seen: 11/28/20 14:43 Interval history: Patient is improved. Family and she had made herself a no code and comfort measures. However now she feels better and has reversed that. Exam Narrative: Exam Narrative: WDWN in NAD skin no rash head ncat lungs clear without wheezes cor reg no rub or gallop abd BS+ nontender and soft ext 2+ edema. Objective Data Vital Signs Vital Signs: Vital Signs - 24 hr 11/27/20 15:56 11/27/20 16:00 11/27/20 20:00 Temperature Pulse Rate 74 74 76 Respiratory Rate 18 Blood Pressure Pulse Oximetry 93 11/27/20 22:00 11/27/20 22:22 11/28/20 00:00 Temperature 37.3 C Pulse Rate 73 79 75 Respiratory Rate 18 17 Blood Pressure 103/52 L Pulse Oximetry 90 95 11/28/20 02:22 11/28/20 04:00 11/28/20 05:19 Temperature Pulse Rate 75 63 70 Respiratory Rate 17 16 Blood Pressure Pulse Oximetry 93 91 11/28/20 06:00 11/28/20 08:00 11/28/20 09:14 Temperature 36.4 C L Pulse Rate 71 71 Respiratory Rate 20 20 Blood Pressure 106/62 Pulse Oximetry 96 91 91 Intake/Output Intake/Output: Intake & Output 11/25/20 11/26/20 11/27/20 11/28/20 23:59 23:59 23:59 23:59 Intake Total 1958 683 1233 530 Balance 8819 143 2753 530 Meds/Results Medications: Active Medications Generic Name Dose Route Start Last Admin Trade Name Freq PRN Reason Stop Dose Admin Acetaminophen 650 mg 11/24/20 21:48 Acetaminophen 325 Mg Tablet PO BID PRN pain
--- NOTE | 2020-11-28 15:20 | PM.IMPN ---
Progress Note: A&P Assessment and Plan (1) Acute respiratory failure with hypoxia and hypercapnia: Code(s): J96.01 - Acute respiratory failure with hypoxia; J96.02 - Acute respiratory failure with hypercapnia Status: Acute Assessment and Plan: Improving with BiPAP and oxygen therapy -continue to wear the BiPAP at night and with naps -abg still showing acidosis although the patient looks the best she has looked since her entire hospital stay. Will repeat ABG -the patient family went back and forth on their wishes. For now she is a modified code with intubation if needed -will stop bicarb, CO2 28 on BMP -chest x-ray 11/26/20 shows likely pulmonary edema. I do not suspect pneumonia since her white blood cell count is within normal limits, no fevers, and she is fluid overloaded in multiple areas (2) Generalized weakness: Code(s): R53.1 - Weakness Status: Acute Assessment and Plan: Likely deconditioning since the patient states that this has gradually kind of been getting worse since the pandemic -continue PT and OT -she will need SNF at discharge (3) Urinary tract infection: Code(s): N39.0 - Urinary tract infection, site not specified Status: Acute Assessment and Plan: Urine culture growing ecoli sensitive to ceftriaxone -sensitivity information is on the chart since information from [employer] is not pulling through (4) Diastolic congestive heart failure: Code(s): I50.30 - Unspecified diastolic (congestive) heart failure Status: Acute Assessment and Plan: Echo today showin. Complete two-dimensional, color flow and Doppler transthoracic echocardiogram is performed. 2. Left ventricular chamber dimension is normal. 3. Left ventricular systolic function is normal, estimated at 60-65%. 4. There is moderately increased left ventricular wall thickness. 5. The left ventricular diastolic function is abnormal. 6. E/e' 13 is mildly elevated. 7. There is mild pulmonic regurgitation. 8. There is small circumferential pericardial effusion. -patient is significantly overloaded. 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 I have decreased her Lantus and asked them not to give it if she does not eat during the day. This should be increased if her glucose worsens -patient's A1c is 7.4 -Monitor blood glucose and adjust medications as needed for changes. (6) Chronic kidney disease, stage IV (severe): Code(s): N18.4 - Chronic kidney disease, stage 4 (severe) Status: Chronic Assessment and Plan: Last Cr 3.5--improving -Dr. Bowen onboard -Pt significantly fluid overloaded but improving -Continue fluid restriction and diuretics (now daily) -Pt Cr has a wide range but looks like baseline is around 2.4-2.9 (7) Obstructive sleep apnea: Code(s): G47.33 - Obstructive sleep apnea (adult) (pediatric) Status: Chronic Assessment and Plan: pt agreed to bipap last night but usually refuses -see above (8) Chronic anemia: Code(s): D64.9 - Anemia, unspecified Status: Acute Assessment and Plan: hgb stable at 10.0 -monitor for bleeding (9) Chronic obstructive pulmonary disease: Code(s): J44.9 - Chronic obstructive pulmonary disease, unspecified Status: Acute Assessment and Plan: No signs of exacerbation at this time -continue Symbicort, Spiriva, albuterol PRN Subjective Date/time seen: 11/28/20 15:20 Interval history: Pt is a 65 y/o female here for UTI, respiratory failure and hypervolemia. Patient was seen
[2020-11-28 16:59] LABS: Glucose Point of Care 142 mg/dl (65-105)
[2020-11-28 18:28] LABS: Alveolar/Arterial O2 Gradient 79.3 mmHg; Base Excess ABG 1.3 mEq/l (+/-2.0); Fractional Inspired Oxygen 28 %; HCO3 ABG 28.3 mEq/l (22.0-26.0); Methemoglobin ABG 0.1 %THb (0-1.5); Oxygen Content ABG 13.8 %vol (16.0-22.0); Oxyhemoglobin 85.2 % THb (90.0-100.0); PCO2 ABG 56.3 mmHg (35.0-45.0); PO2 ABG 53.9 mmHg (80.0-100.0); PO2 FiO2 Ratio Arterial Blood 1.93 %; Reduced Hemoglobin 13.7 %THb (0-5.0); Total Hemoglobin 11.5 g/dL (12.0-18.0); pH ABG 7.319 (7.350-7.450)
[2020-11-28 18:33] LABS: Device NASAL CANNULA; Modified Allen's Test Pass; Oxygen Saturation ABG 84.7 % (95.0-100.0); Site Drawn LEFT RADIAL
[2020-11-28] MEDS: INSULIN GLARGINE (*BKC) 100 UNITS/ML 25 UNITS SUB-Q (21:33)
[2020-11-29 01:25] LABS: Glucose Point of Care 158 mg/dl (65-105)
[2020-11-29 03:03] VITALS: PULSE 69; RESP 19; O2SAT 93
[2020-11-29 05:58] VITALS: BP 92/50; PULSE 67; RESP 20; TEMP 35.9; O2SAT 93
[2020-11-29 06:17] LABS: Hematocrit 32.2 % (37.0-47.0); Hemoglobin 9.6 g/dL (12.0-15.0); Immature Platelet Fraction Pct 8.9 % (0.9-11.2); Mean Corpuscular HGB Conc 29.8 g/dl (32-36); Mean Corpuscular Hemoglobin 27.8 pg (26-34); Mean Corpuscular Volume 93.3 fl (80-100); Platelet Count Result 137 k/mm3 (150-375); Red Blood Count 3.45 M/mm3 (4.2-5.4); Red Cell Distribution Width 14.4 % (11.5-14.5); White Blood Count 4.9 K/mm3 (4.5-10.0)
[2020-11-29 06:34] LABS: Albumin Level 3.1 g/dL (3.5-5.1); Anion Gap 6 mmol/L (8-16); Blood Urea Nitrogen 53 mg/dL (7-17); Calcium 8.4 mg/dL (8.4-10.2); Carbon Dioxide 29 mmol/L (22-30); Chloride 106 mmol/L (98-107); Estimated CRCL calculation 24 ml/min; Estimated Glomerular Filt Rate 14; Glucose 102 mg/dL (65-105); Phosphorus 4.2 mg/dL (2.5-4.5); Potassium 3.4 mmol/L (3.4-5.0); Sodium 141 mmol/L (137-145)
[2020-11-29 08:00] VITALS: PULSE 72
[2020-11-29] MEDS: CALCIUM ACETATE 667 MG TABLET PO (08:54)
[2020-11-29] MEDS: HEPARIN SODIUM 5,000 UNITS/ML VIAL 5000 UNITS SUB-Q (08:54)
[2020-11-29] MEDS: BUMETANIDE INJ 1 MG/4 ML VIAL IV PUSH (08:54)
[2020-11-29] MEDS: SIMVASTATIN 20 MG TABLET PO (08:54)
[2020-11-29] MEDS: TOLNAFTATE 1% POWDER 45 GM BTL 1 APPLIC TOPICAL (08:55)
[2020-11-29 09:20] VITALS: O2SAT 90
[2020-11-29 09:22] VITALS: O2SAT 93
[2020-11-29 09:59] LABS: Glucose Point of Care 92 mg/dl (65-105)
--- NOTE | 2020-11-29 10:13 | PM.DS ---
DS: Admitting Diagnosis Admitting Diagnosis Admitting Diagnosis: weakness with shaking, dysuria and LE edema. DS: Discharge Diagnosis Discharge Diagnosis (1) Acute respiratory failure with hypoxia and hypercapnia: Code(s): J96.01 - Acute respiratory failure with hypoxia; J96.02 - Acute respiratory failure with hypercapnia Status: Acute Assessment and Plan: Patient had respiratory failure requiring BiPAP. She initially refused but ultimately able to convinve patient to wear the mask. She had ABG 7.14/59/56 on 1L. She improved with BiPAP and oxygen therapy. Last ABG 7.32/56/54 on 2L. The patient family went back and forth on their wishes regarding code status. For now she is a modified code with intubation if needed (although patietn this morning refuses this). She did not wear the BiPAP again last night. She was again encouraged to be compliant with treatment. (2) Generalized weakness: Code(s): R53.1 - Weakness Status: Acute Assessment and Plan: Likely deconditioning since the patient states that this has gradually kind of been getting worse since the pandemic. She worked with PT and OT. SNF arranged at discharge (3) Urinary tract infection: Code(s): N39.0 - Urinary tract infection, site not specified Status: Acute Assessment and Plan: Urine culture growing Ecoli sensitive to ceftriaxone. Sensitivity information was placed on the chart since information from [employer] is not pulling through. Continue abx to complete a course. (4) Diastolic congestive heart failure: Code(s): I50.30 - Unspecified diastolic (congestive) heart failure Status: Acute Assessment and Plan: Acute diastolic CHF. Doppler of the LE negative for DVT. CXR showing mild pulmonary edema. Echo showing: EF 60-65% with abnormal diastolic function. Patient is significantly overloaded treated with Bumex IV. Good diuresis. Continue Bumex at discharge. Appreciate nephrology input. (5) Insulin dependent type 2 diabetes mellitus: Code(s): E11.9 - Type 2 diabetes mellitus without complications; Z79.4 - penitentiary (current) use of insulin Status: Acute Assessment and Plan: A1c 7.4. Glucose was low normal at times. Patient has been having a decreased appetite. Her scheduled insulin was stopped and her Lantus was decreased. The patient's blood glucose was monitored with AccuCheks covering with sliding scale. Hypoglycemia protocol was available as needed. (6) Chronic kidney disease, stage IV (severe): Code(s): N18.4 - Chronic kidney disease, stage 4 (severe) Status: Chronic Assessment and Plan: Pt Cr has a wide range but looks like baseline is around 2.4-2.9. Cr 3.0 on admisison and climbed t 3.8 before trending down to 3.3 at discharge. She tolerated the IV Bumex with good UOP. Nephrology followed along. (7) Obstructive sleep apnea: Code(s): G47.33 - Obstructive sleep apnea (adult) (pediatric) Status: Chronic Assessment and Plan: Patient intermittently compliant with wearing BiPAP. Encouraged compliance. (8) Chronic anemia: Code(s): D64.9 - Anemia, unspecified Status: Acute Assessment and Plan: Hgb 12 on admission and dropped to the 9-10 range. No evidence of acute blood loss. [place] more chronic related to her CKD. (9) Chronic obstructive pulmonary disease: Code(s): J44.9 - Chronic obstructive pulmonary disease, unspecified Status: Acute Assessment and Plan: No signs of exacerbation. We continued Symbicort, Spiriva, and albuterol PRN. DS: Summary Hospital Course Reason for hospitalization: 65yo female with history of DVT/PE, DM, morbid obesity, CHF, sleep apnea on oxygen at night, and dyslipidemia presented to the emergency department via EMS from home with complaints of weakness. Please see H&P for details. Hospital Course: Please see above for d
[2020-11-29 11:00] LABS: EDCOVIDSCREEN Negative (Negative)
[2020-11-29 11:30] LABS: Glucose Point of Care 207 mg/dl (65-105)
[2020-11-29] MEDS: INSULIN ASPART (*BKC) 100 UNITS/ML SUB-Q (11:41)
[2020-11-29 12:00] VITALS: PULSE 72
[2020-11-29] MEDS: ONDANSETRON INJ 4 MG/2 ML VIAL IV PUSH (12:46)
== END 2020-11-29 12:55 | DRG 689 ==
LOC: ANHED 10:21 → ANH3MEDSUR 14:10
PROVIDERS: Internal Medicine Nephrology; Physician Assistant; Admitting Provider Internal Medicine; Emergency Provider Emergency Medicine; Visit Provider Internal Medicine
DX: N39.0 Urinary tract infection, site not specified (principal); J96.01 Acute respiratory failure with hypoxia; J96.02 Acute respiratory failure with hypercapnia; I50.31 Acute diastolic (congestive) heart failure; N18.4 Chronic kidney disease, stage 4 (severe); Z68.44 Body mass index [BMI] 60.0-69.9, adult; E66.2 Morbid (severe) obesity with alveolar hypoventilation; Z20.822 Contact with and (suspected) exposure to COVID-19; B96.20 Unspecified Escherichia coli [E. coli] as the cause of diseases classified elsewhere; E11.22 Type 2 diabetes mellitus with diabetic chronic kidney disease; E11.42 Type 2 diabetes mellitus with diabetic polyneuropathy; I89.0 Lymphedema, not elsewhere classified; D63.1 Anemia in chronic kidney disease; J44.9 Chronic obstructive pulmonary disease, unspecified; E55.9 Vitamin D deficiency, unspecified; E78.5 Hyperlipidemia, unspecified; Z79.4 Long term (current) use of insulin; Z86.718 Personal history of other venous thrombosis and embolism; Z86.711 Personal history of pulmonary embolism; Z90.710 Acquired absence of both cervix and uterus; Z90.49 Acquired absence of other specified parts of digestive tract; Z87.891 Personal history of nicotine dependence; Z99.81 Dependence on supplemental oxygen
CPT/HCPCS: 36415; 36600; 51701; 71045; 80048; 80053; 80069; 80076; 81001; 82375; 82570; 82805; 82948; 83036; 83050; 83735; 84156; 84300; 84443; 85025; 85027; 85055; 87077; 87086; 87088; 87186; 87426; 93005; 93306; 93970; 94002; 94003; 94660; 96365; 96372; 96375; 96376; 97110; 97116; 97162; 97165; 97530; 99285; A9270; C9803; G0378; J0696; J1644; J1815; J1940; J2405; J7040; U0003; U0005

== ENCOUNTER 2021-03-10 10:45 | Inpatient (IN) | payer MEDICARE, MEDICAID, SELFPAY ==
[2021-03-10] VITALS (9 sets, daily range): BP systolic 107–119; BP diastolic 47–67; PULSE 71–90; RESP 15–26; TEMP 36.3–37; O2SAT 93–99; BMI 59.8; BMI 60.7
--- NOTE | ~2021-03-10 | CT_ITS ---
EXAMINATION: CT abdomen pelvis wo con DATE: 03/10/2021 14:19 INDICATION: Abdominal pain and swelling. TECHNIQUE: Computed tomography (CT) of the abdomen and pelvis was performed without intravenous contr ast. Automated exposure control and iterative reconstruction technique were employed. The dose-length product was 1686.98 mGy-cm. COMPARISON: CT abdomen and pelvis 04/09/2020 FINDINGS: The visualized portions of the lung bases demonstrate mild atelectasis. No pleural effusion . Cardiomegaly is noted. No pericardial effusion. The liver and spleen are normal. The gallbladder is absent. The pancreas and adrenal glands are normal. There is cortical thinning of the kidneys. There are 6 stones in right kidney measuring up to 10 mm. There are stones in left kidney measuring up to 12 mm. There is diverticulosis of the colon without evidence of diverticulitis. There are no dilated loops of bowel. There are changes of appendectomy. There are no pathologically enlarged lymph nodes. There is no free intraperitoneal fluid. There is skin thickening and subcutaneous fat stranding in th e lower abdomen. There is mild thoracolumbar spondylosis. IMPRESSION: 1. Chronic skin thickening and subcutaneous fat stranding in low anterior abdominal wall, consistent with inflammation. 2. Bilateral nonobstructing kidney stones. Reviewed, dictated and finalized at location A. IMPRESSION: 1. Chronic skin thickening and subcutaneous fat stranding in low anterior abdom inal wall, consistent with inflammation. 2. Bilateral nonobstructing kidney stones.
[2021-03-10 13:42] LABS: Basophils Percent Auto 0.4 % (0.2-1.2); Eosinophils Absolute Auto 0.3 K/mm3 (0-0.3); Eosinophils Percent Auto 2.6 % (0-4.4); Hematocrit 37.7 % (37.0-47.0); Hemoglobin 11.9 g/dL (12.0-15.0); Immature Granulocyte Absolute 0.05 K/mm3 (0.00-0.031); Immature Granulocyte Percent A 0.5 % (0-0.5); Lymphocytes Absolute Auto 0.57 K/mm3 (0.9-3.2); Lymphocytes Percent Auto 5.5 % (18.3-44.2); Mean Corpuscular HGB Conc 31.6 g/dl (32-36); Mean Corpuscular Hemoglobin 29.1 pg (26-34); Mean Corpuscular Volume 92.2 fl (80-100); Mean Platelet Volume 11.9 fl (7.4-10.4); Monocytes Absolute Auto 0.5 K/mm3 (0.1-0.6); Monocytes Percent Auto 4.6 % (2.6-8.5); Neutrophils Percent Auto 86.4 % (45.5-73.1); Platelet Count Result 126 k/mm3 (150-375); Red Blood Count 4.09 M/mm3 (4.2-5.4); Red Cell Distribution Width 15.8 % (11.5-14.5); White Blood Count 10.4 K/mm3 (4.5-10.0)
[2021-03-10 13:54] LABS: Anion Gap 9 mmol/L (8-16); Blood Urea Nitrogen 32 mg/dL (7-17); Calcium 9.3 mg/dL (8.4-10.2); Carbon Dioxide 25 mmol/L (22-30); Chloride 103 mmol/L (98-107); Estimated CRCL calculation 33 ml/min; Estimated Glomerular Filt Rate 20; Glucose 174 mg/dL (65-110); Potassium 4.2 mmol/L (3.4-5.0); Sodium 137 mmol/L (137-145)
--- NOTE | 2021-03-10 14:09 | ED.SKABFB ---
HPI - Skin/Abscess/Foreign Bdy General Chief complaint: Wound/Laceration Stated complaint: Redness lower abd Time Seen by Provider: 03/10/21 12:35 Source: patient Mode of arrival: ambulatory Limitations: no limitations History of Present Illness HPI narrative: Patient is a 65-year-old female complaining of redness, pain and swelling around her lower abdominal area started yesterday. Patient denies any chest pain, shortness of breath, nausea, vomiting, diarrhea, fever or chills. Related Data Home Medications Medication Instructions Recorded Confirmed acetaminophen 650 mg 650 mg PO BID PRN tablet 04/08/20 11/24/20 tablet,extended release albuterol sulfate See Rx Instructions .ROUTE 11/24/20 11/24/20 .COMPLEX PRN Allergies Allergy/AdvReac Type Severity Reaction Status Date / Time adhesive tape Allergy Unknown RASH Verified 11/24/20 15:11 atorvastatin Allergy Unknown rash Verified 11/24/20 15:11 ciprofloxacin Allergy Unknown rash Verified 11/24/20 15:11 nitrofurantoin Allergy Unknown rash Verified 11/24/20 15:11 rosuvastatin Allergy Unknown Rash Verified 11/24/20 15:11 Penicillins AdvReac Intermediate Rash Verified 11/24/20 15:11 Review of Systems Review of Systems: All systems reviewed & are unremarkable except as noted in HPI and below Constitutional: Constitutional: Denies body ache(s), Denies chills, Denies excessive sweating, Denies fatigue, Denies fever(s), Denies headache(s), Denies lethargy, Denies malaise, Denies weakness and Denies weight loss Eyes: Eyes: Denies blurry vision, Denies change in vision and Denies loss of vision ENT: Denies dizziness, Denies ear discharge, Denies headache(s), Denies lip swelling, Denies epistaxis, Denies nasal congestion, Denies neck pain, Denies throat swelling and Denies tongue swelling Cardiovascular: Cardiovascular: Denies chest pain, Denies chest pain at rest, Denies chest pain with activity, Denies diaphoresis, Denies rapid heart rate, Denies edema, Denies irregular heart rhythm, Denies lightheadedness, Denies palpitations, Denies dyspnea and Denies dyspnea on exertion Respiratory: Respiratory: Denies chest congestion, Denies cough, Denies hemoptysis, Denies dyspnea and Denies dyspnea on exertion Gastrointestinal: Gastrointestinal: Denies abdominal pain, Denies melena, Denies hematochezia, Denies diarrhea, Denies nausea, Denies vomiting and Denies hematemesis Musculoskeletal: Musculoskeletal: Denies abnormal gait, Denies deformity, Denies joint swelling, Denies limited range of motion, Denies neck pain and Denies numbness Neurologic: Denies Abnormal speech present, Denies abnormal gait, Denies confusion, Denies dizziness, Denies headache(s), Denies focal weakness, Denies loss of vision, Denies numbness, Denies Other visual disturbances, Denies Sensory deficit (Neuro) and Denies weakness Psychiatric: Psychiatric: Denies confusion, Denies depression, Denies auditory hallucinations, Denies homicidal ideation and Denies suicidal ideation Endocrine: Endocrine: Denies cold intolerance, Denies excessive sweating, Denies fatigue, Denies heat intolerance and Denies palpitations Hematologic/Lymphatic: Hematologic/Lymphatic: Denies easy bleeding and Denies easy bruising Allergic/Immunologic: Allergic/Immunologic: Denies lip swelling, Denies throat swelling and Denies tongue swelling PMFSH Past Medical History Medical History Chronic anemia Chronic kidney disease, stage IV (severe) Baseline creatinine appears to be around 3.0. Chronic obstructive pulmonary disease CKD (chronic kidney disease) stage 4, GFR 15-29 ml/min Colon polyps Diastolic dysfunction Dyslipidemia Generalized edema History of deep venous thrombosis History of pulmonary embolism History of recurrent UTIs Insulin dependent type 2 diabetes mellitus Kidney stones Lymphedema Morbid obesity Obesity hypoventilation syndrome Obstructive sleep apnea Intolerant to C
--- NOTE | 2021-03-10 14:38 | PC.NURSE ---
Patient assisted to stand while cleaning bed and changing linen. Patient also cleaned as well and was assisted back onto bed. Patient sitting on the side of bed which is position of comfort for her.
[2021-03-10] MEDS: CLINDAMYCIN 600 MG/D5W 50 ML 600 MG/50 ML PIGGYBACK 100 MG IVPB (16:01)
--- NOTE | 2021-03-10 16:14 | PC.NURSE ---
Patient has large area of redness to her lower abdomen. Her abdomen is hot and firm to touch with reports of pain with palpation. She tells me that this was noted by her home health aide today. Last time her aide was there was saturday or saturday and she did not report seeing this. Patient does report that her abdomen has been hard for a long time but is unable to articulate an actual timeframe. She does report that pain just began this morning. She also has discolored purple/red legs below both knees. There is also edema noted to this area but patient tells me that this is normal. She tells me that she is ambulatory and does walk around her house without assistance. She does not report other concerns.
--- NOTE | 2021-03-10 16:36 | PM.IMHP ---
H&P: HPI History of Present Illness Date/Time: 03/10/21 16:36 this is a 65 year old diabetic female patient. Who stated that she had some right lower quadrant abdominal pain last night. She also felt sick to her stomach. She had a tactile fever. The patient stated that she did not have any redness or swelling to her lower pannus until today. The patient noticed that she has redness to her lower abdomen all the way up to about 3 in from her umbilical area. The patient stated that her blood sugars are typically in the 100s just good for her. Today her blood sugar was 174. The patient has chronic renal disease and her creatinine is 2.4 today which is at her baseline. The patient has multiple allergies and was started on clindamycin. As per diabetic cellulitis protocol vancomycin and Primaxin. Patient's white count is 10.4. Patient's platelets are 126. It appears that patient has chronic thrombocytopenia. CT of the abdomen and pelvis read as the following 1. Chronic skin thickening and subcutaneous fat stranding in low anterior abdominal wall, consistent with inflammation. 2. Bilateral nonobstructing kidney stones. The patient was admitted to observation status on the date of service of 03/10/2021. Chief Complaint: Abdominal pain Review of Systems Review of Systems: All systems reviewed & are unremarkable except as noted in HPI and below Constitutional: Constitutional: Reports as per HPI and Reports no additional constitutional complaints Eyes: Eyes: Reports as per HPI and Reports no additional eye complaints ENT: Reports system reviewed and no additional complaints, except as documented and Reports Normal hearing present Cardiovascular: Cardiovascular: Reports no additional cardiovascular complaints Respiratory: Respiratory: Reports no additional respiratory complaints and Reports no additional respiratory complaints Gastrointestinal: Gastrointestinal: Reports as per HPI and Reports no additional gastrointestinal complaints Musculoskeletal: Musculoskeletal: Reports no additional musculoskeletal complaints Integumentary/Breasts: Skin/Breast: Reports system reviewed and no additional complaints, except as docu and Reports as per HPI Neurologic: Reports system reviewed and no additional complaints, except as documented, Reports as per HPI and Reports Normal hearing present Psychiatric: Psychiatric: Reports no additional psychiatric complaints and Reports as per HPI Endocrine: Endocrine: Reports no additional endocrine complaints Hematologic/Lymphatic: Hematologic/Lymphatic: Reports no additional hematologic/lymphatic complaints Allergic/Immunologic: Allergic/Immunologic: Reports no additional allergic/immunologic complaints [facility] Past Medical History Medical History Chronic anemia Chronic kidney disease, stage IV (severe) Baseline creatinine appears to be around 3.0. Chronic obstructive pulmonary disease CKD (chronic kidney disease) stage 4, GFR 15-29 ml/min Colon polyps Diastolic dysfunction Dyslipidemia Generalized edema History of deep venous thrombosis History of pulmonary embolism History of recurrent UTIs Insulin dependent type 2 diabetes mellitus Kidney stones Lymphedema Morbid obesity Obesity hypoventilation syndrome Obstructive sleep apnea Intolerant to CPAP. On nocturnal oxygen. Venous insufficiency Vitamin D deficiency, unspecified Surgical History Surgical History (Updated 03/10/21 @ 17:37 by Eliane Armstrong NP) H/O shoulder surgery Left History of carpal tunnel release History of section, classical X1 History of cholecystectomy History of colonoscopy with polypectomy History of hysterectomy for benign disease History of removal of ovarian cyst History of renal stent History of thymectomy Family History Family History Mother Diabetes mellitus Family history of d
--- NOTE | 2021-03-10 16:51 | PC.NURSE ---
REPORT GIVEN TO STEVEN PORTER.
--- NOTE | 2021-03-10 17:15 | PC.NURSE ---
This patient, Rosario Ruiz, was admitted to 2 Medical Room 240-. Patient/family oriented to hospital policies and general routines including ID bracelet, bed and alarms, visiting hours, pain management, procedures, bathroom and other care routines, personal items, smoking policy, room service/diet, and visiting hours. Information on how to activate the Rapid Response Team has been discussed. Patient/Family are encouraged to report perceived risks to care and to ask questions if they do not understand what they are told or what they should do.
[2021-03-10 18:02] LABS: Glucose Point of Care 184 mg/dl (65-105)
[2021-03-10 20:52] LABS: Glucose Point of Care 252 mg/dl (65-105)
[2021-03-10] MEDS: INSULIN GLARGINE (*BKC) 100 UNITS/ML 50 UNITS SUB-Q (23:14)
[2021-03-11 05:49] LABS: Basophils Percent Auto 0.3 % (0.2-1.2); Eosinophils Absolute Auto 0.3 K/mm3 (0-0.3); Eosinophils Percent Auto 4.8 % (0-4.4); Hemoglobin 10.9 g/dL (12.0-15.0); Immature Granulocyte Absolute 0.02 K/mm3 (0.00-0.031); Immature Granulocyte Percent A 0.3 % (0-0.5); Lymphocytes Percent Auto 9.6 % (18.3-44.2); Mean Corpuscular HGB Conc 30.3 g/dl (32-36); Mean Corpuscular Hemoglobin 29.1 pg (26-34); Monocytes Absolute Auto 0.5 K/mm3 (0.1-0.6); Monocytes Percent Auto 7.2 % (2.6-8.5); Neutrophils Absolute Auto 4.9 K/mm3 (1.3-6.7); Neutrophils Percent Auto 77.8 % (45.5-73.1); Platelet Count Result 111 k/mm3 (150-375); Red Blood Count 3.75 M/mm3 (4.2-5.4); White Blood Count 6.3 K/mm3 (4.5-10.0)
[2021-03-11 06:00] VITALS: BP 129/41; PULSE 76; RESP 18; TEMP 36.5; O2SAT 96
[2021-03-11 06:18] LABS: Alanine Aminotransferase 18 U/L (4-35); Albumin Level 3.9 g/dL (3.5-5.1); Alkaline Phosphatase 92 U/L (38-126); Anion Gap 7 mmol/L (8-16); Aspartate Amino Transferase 20 U/L (14-36); Bilirubin,Total 0.5 mg/dL (0.2-1.3); Blood Urea Nitrogen 31 mg/dL (7-17); Calcium 8.9 mg/dL (8.4-10.2); Carbon Dioxide 29 mmol/L (22-30); Chloride 102 mmol/L (98-107); Estimated CRCL calculation 32 ml/min; Estimated Glomerular Filt Rate 19; Glucose 184 mg/dL (65-110); Lactate Dehydrogenase 354 U/L (313-618); Magnesium 2.1 mg/dL (1.6-2.3); Potassium 4.2 mmol/L (3.4-5.0); Sodium 138 mmol/L (137-145)
[2021-03-11 06:26] LABS: Lactic Acid Reflex 0.8 mmol/L (0.7-2.1)
[2021-03-11 07:46] LABS: Glucose Point of Care 139 mg/dl (65-105)
[2021-03-11] MEDS: FLUTICASONE/UMECLIDIN/VILANTER 100-62.5-25 MCG ELLIPTA 1 PUFF INHALATION (08:08)
[2021-03-11 08:10] VITALS: PULSE 74; RESP 18
[2021-03-11 08:12] VITALS: PULSE 74; RESP 18; O2SAT 98
[2021-03-11] MEDS: FUROSEMIDE 20 MG TABLET PO (08:54)
[2021-03-11] MEDS: OMEGA 3 POLYUNSAT FATTY ACIDS 1 GM CAP PO (08:54)
[2021-03-11 09:00] VITALS: O2SAT 98
--- NOTE | 2021-03-11 09:25 | PM.IMPN ---
Progress Note: A&P Assessment and Plan (1) Diastolic congestive heart failure: Code(s): I50.30 - Unspecified diastolic (congestive) heart failure Status: Acute Assessment and Plan: Will continue with Bumex (2) Abdominal wall cellulitis: Code(s): L03.311 - Cellulitis of abdominal wall Status: Acute Assessment and Plan: As per antibiotic stewardship for a diabetic patient. Will we will continue with vancomycin that is dosed per pharmacy as well as Primaxin. Blood cultures are pending. I did destini the area that was red and tender to the lower abdomen. The patient has a large pannus. Patient does not recall any injury to her lower abdomen. The patient stated she has not had any recent fungal infection to her yanez. (3) Acute respiratory failure with hypoxia and hypercapnia: Code(s): J96.01 - Acute respiratory failure with hypoxia; J96.02 - Acute respiratory failure with hypercapnia Status: Acute Assessment and Plan: The patient is chronically on oxygen at 2 L per nasal cannula. Continue with her inhalers. The patient has obstructive sleep apnea but is noncompliant with her CPAP. She is intolerant of her CPAP (4) CKD (chronic kidney disease) stage 4, GFR 15-29 ml/min: Code(s): N18.4 - Chronic kidney disease, stage 4 (severe) Status: Acute Assessment and Plan: The patient is at her baseline please continue to monitor. (5) Obesity hypoventilation syndrome: Code(s): E66.2 - Morbid (severe) obesity with alveolar hypoventilation Status: Acute Assessment and Plan: The patient is intolerant of the CPAP. (6) Diabetes: Code(s): E11.9 - Type 2 diabetes mellitus without complications Status: Acute Assessment and Plan: Accu-Cheks AC and HS. Check A1c. Last A1c was 7.4 on 11/25/2020. Sliding scale insulin. Continue with Lantus. Additional Plan 03/11/21 stable on 2L NC afebrile w WBCs now WNL CKD 4 stable BG near goal on vanc/imipenem x cellulitis anticipated LOS 3 days if continues to clinically improve pannus erythematous warm indurated and extremely tender Subjective Date/time seen: 03/11/21 09:25 pt complains of pain over abdomen, asks how to prevent this from recurring advised to keep her pannus clean and dry to prevent skin breakdown Exam Narrative: GEN: NAD, AAOx3, cooperative, obese HEENT: NCAT, MMM, EOMI Neck: no JVD Lungs: symmetric chest rise no use of accessory muscles Abd: soft, TTP, ND, indurated pannus, bowel sounds normoactive Ext: moves all, no cyanosis, no clubbing, no edema, chronic LE venous stasis changes Neuro: taximeter repairer intact, no focal neurological deficits appreciated Psych: mood and affect congruent Objective Data Vital Signs Vital Signs: Vital Signs - 24 hr 03/10/21 11:14 03/10/21 12:59 03/10/21 14:39 Temperature 98.1 F 98.3 F 97.4 F L Pulse Rate 84 77 90 Respiratory Rate 20 26 H 20 Blood Pressure 107/54 L 118/66 119/67 Pulse Oximetry 96 96 95 03/10/21 15:32 03/10/21 16:40 03/10/21 17:14 Temperature 97.9 F 98.2 F 98.6 F Pulse Rate 81 90 78 Respiratory Rate 15 18 19 Blood Pressure 107/63 108/66 117/48 L Pulse Oximetry 93 95 98 03/10/21 18:00 03/10/21 21:23 03/10/21 22:00 Temperature 97.7 F Pulse Rate 79 71 Respiratory Rate 20 Blood Pressure 115/47 L Pulse Oximetry 95 96 99 03/11/21 06:00 03/11/21 08:10 03/11/21 08:12 Temperature 97.7 F Pulse Rate 76 74 74 Respiratory Rate 18 18 18 Blood Pressure 129/41 L Pulse Oximetry 96 98 03/11/21 09:00 Temperature Pulse Rate Respiratory Rate Blood Pressure Pulse Oximetry 98 Intake/Output Intake/Output: Intake & Output 03/08/21 03/09/21 03/10/21 03/11/21 23:59 23:59 23:59 23:59 Intake Total 890 900 Output Total 1100 Balance 890 -200 Meds/Results Medications: Active Medications Generic Name Dose Route Start Last Admin Trade Name Freq PRN Reason Stop Dose Admin Aceta
[2021-03-11 11:49] LABS: Glucose Point of Care 211 mg/dl (65-105)
[2021-03-11] MEDS: INSULIN ASPART (*BKC) 100 UNITS/ML SUB-Q ×2 (11:53→16:37)
[2021-03-11] MEDS: ACETAMINOPHEN 325 MG TABLET 650 MG PO (12:50)
[2021-03-11 14:00] VITALS: BP 115/47; PULSE 73; RESP 22; TEMP 36.8; O2SAT 97
[2021-03-11 16:25] LABS: Glucose Point of Care 241 mg/dl (65-105)
[2021-03-11] MEDS: INSULIN GLARGINE (*BKC) 100 UNITS/ML 50 UNITS SUB-Q (21:38)
[2021-03-11 21:56] LABS: Glucose Point of Care 230 mg/dl (65-105)
[2021-03-11 22:00] VITALS: BP 114/49; PULSE 69; RESP 18; TEMP 36.4; O2SAT 97
[2021-03-12] MEDS: ACETAMINOPHEN 325 MG TABLET 650 MG PO ×2 (03:01→12:00)
[2021-03-12 05:45] LABS: Basophils Percent Auto 0.7 % (0.2-1.2); Eosinophils Absolute Auto 0.4 K/mm3 (0-0.3); Eosinophils Percent Auto 7.3 % (0-4.4); Hematocrit 34.8 % (37.0-47.0); Hemoglobin 10.6 g/dL (12.0-15.0); Immature Granulocyte Absolute 0.04 K/mm3 (0.00-0.031); Immature Granulocyte Percent A 0.7 % (0-0.5); Lymphocytes Absolute Auto 0.74 K/mm3 (0.9-3.2); Lymphocytes Percent Auto 13.1 % (18.3-44.2); Mean Corpuscular HGB Conc 30.5 g/dl (32-36); Mean Corpuscular Hemoglobin 28.3 pg (26-34); Mean Platelet Volume 12.9 fl (7.4-10.4); Monocytes Absolute Auto 0.4 K/mm3 (0.1-0.6); Monocytes Percent Auto 7.8 % (2.6-8.5); Neutrophils Percent Auto 70.4 % (45.5-73.1); Platelet Count Result 116 k/mm3 (150-375); Red Blood Count 3.74 M/mm3 (4.2-5.4); Red Cell Distribution Width 15.9 % (11.5-14.5); White Blood Count 5.7 K/mm3 (4.5-10.0)
[2021-03-12 05:47] LABS: Alanine Aminotransferase 17 U/L (4-35); Albumin Level 3.8 g/dL (3.5-5.1); Alkaline Phosphatase 100 U/L (38-126); Anion Gap 8 mmol/L (8-16); Aspartate Amino Transferase 20 U/L (14-36); Bilirubin,Total 0.6 mg/dL (0.2-1.3); Blood Urea Nitrogen 34 mg/dL (7-17); Calcium 8.8 mg/dL (8.4-10.2); Carbon Dioxide 26 mmol/L (22-30); Chloride 103 mmol/L (98-107); Creatine Kinase 72 U/L (30-135); Estimated CRCL calculation 38 ml/min; Estimated Glomerular Filt Rate 23; Glucose 212 mg/dL (65-110); Magnesium 2.1 mg/dL (1.6-2.3); Potassium 4.2 mmol/L (3.4-5.0); Sodium 137 mmol/L (137-145)
[2021-03-12 06:00] VITALS: BP 109/43; PULSE 72; RESP 18; TEMP 36.3; O2SAT 96
[2021-03-12 06:05] LABS: CRP 15.9 mg/dL (<1.0)
[2021-03-12 07:32] LABS: Glucose Point of Care 163 mg/dl (65-105)
[2021-03-12 08:00] VITALS: O2SAT 96
[2021-03-12] MEDS: FUROSEMIDE 20 MG TABLET PO (08:17)
[2021-03-12] MEDS: OMEGA 3 POLYUNSAT FATTY ACIDS 1 GM CAP PO (08:17)
[2021-03-12] MEDS: FLUTICASONE/UMECLIDIN/VILANTER 100-62.5-25 MCG ELLIPTA 1 PUFF INHALATION (09:33)
[2021-03-12 09:34] VITALS: O2SAT 95
--- NOTE | 2021-03-12 11:05 | PM.IMPN ---
Progress Note: A&P Assessment and Plan (1) Diastolic congestive heart failure: Code(s): I50.30 - Unspecified diastolic (congestive) heart failure Status: Acute Assessment and Plan: Will continue with Bumex (2) Abdominal wall cellulitis: Code(s): L03.311 - Cellulitis of abdominal wall Status: Acute Assessment and Plan: As per antibiotic stewardship for a diabetic patient. Will we will continue with vancomycin that is dosed per pharmacy as well as Primaxin. Blood cultures are pending. I did destini the area that was red and tender to the lower abdomen. The patient has a large pannus. Patient does not recall any injury to her lower abdomen. The patient stated she has not had any recent fungal infection to her yanez. (3) Acute respiratory failure with hypoxia and hypercapnia: Code(s): J96.01 - Acute respiratory failure with hypoxia; J96.02 - Acute respiratory failure with hypercapnia Status: Acute Assessment and Plan: The patient is chronically on oxygen at 2 L per nasal cannula. Continue with her inhalers. The patient has obstructive sleep apnea but is noncompliant with her CPAP. She is intolerant of her CPAP (4) CKD (chronic kidney disease) stage 4, GFR 15-29 ml/min: Code(s): N18.4 - Chronic kidney disease, stage 4 (severe) Status: Acute Assessment and Plan: The patient is at her baseline please continue to monitor. (5) Obesity hypoventilation syndrome: Code(s): E66.2 - Morbid (severe) obesity with alveolar hypoventilation Status: Acute Assessment and Plan: The patient is intolerant of the CPAP. (6) Diabetes: Code(s): E11.9 - Type 2 diabetes mellitus without complications Status: Acute Assessment and Plan: Accu-Cheks AC and HS. Check A1c. Last A1c was 7.4 on 11/25/2020. Sliding scale insulin. Continue with Lantus. Additional Plan 03/11/21 stable on 2L NC afebrile w WBCs now WNL CKD 4 stable BG near goal on vanc/imipenem x cellulitis anticipated LOS 3 days if continues to clinically improve pannus erythematous warm indurated and extremely tender 03/12/21 cont to have significant erythema and induration of pannus affected by cellulitis cont vanc and imipenem BG near goal cont current care anticipate home w C when clinically improved Subjective Date/time seen: 03/12/21 11:05 pt reports she wants to go home, pain improving over abdomen but erythema and induration has not on NC 2L (uses only at night at home) staff requested to wean and give O2 at night Exam Narrative: GEN: NAD, AAOx3, cooperative, morbidly obese HEENT: NCAT, MMM, EOMI Neck: no JVD Lungs: symmetric chest rise no use of accessory muscles on NC 2L (uses only at night at home) Abd: soft, NT, ND, bowel sounds normoactive Ext: moves all, no cyanosis, no clubbing, 1+ edema, b/l LE venous stasis changes Objective Data Vital Signs Vital Signs: Vital Signs - 24 hr 03/11/21 14:00 03/11/21 22:00 03/12/21 06:00 Temperature 98.2 F 97.5 F L 97.4 F L Pulse Rate 73 69 72 Respiratory Rate 22 H 18 18 Blood Pressure 115/47 L 114/49 L 109/43 L Pulse Oximetry 97 97 96 03/12/21 08:00 03/12/21 09:34 Temperature Pulse Rate Respiratory Rate Blood Pressure Pulse Oximetry 96 95 Intake/Output Intake/Output: Intake & Output 03/09/21 03/10/21 03/11/21 03/12/21 23:59 23:59 23:59 23:59 Intake Total 890 2700 1070 Output Total 1900 900 Balance 890 800 170 Meds/Results Medications: Active Medications Generic Name Dose Route Start Last Admin Trade Name Freq PRN Reason Stop Dose Admin Acetaminophen 650 mg 03/10/21 20:42 03/12/21 03:01 Acetaminophen 325 Mg Tablet PO 650 mg BID PRN Administration pain 1-3 Albuterol 2 puff 03/10/21 20:42 Albuterol Sulfate (*Sp) Aerosol 1 Puff INHALATION Q6H PRN shortness of breath Dextrose 12.5 gm 03/10/21 15:40 Dextrose 50% 25 Gm/50 Ml Syrin
[2021-03-12 11:44] LABS: Glucose Point of Care 195 mg/dl (65-105)
[2021-03-12] MEDS: INSULIN GLARGINE (*BKC) 100 UNITS/ML 30 UNITS SUB-Q ×2 (12:00→16:30)
[2021-03-12 13:56] VITALS: BP 106/50; PULSE 77; RESP 20; TEMP 36.2; O2SAT 95
[2021-03-12 16:28] LABS: Glucose Point of Care 237 mg/dl (65-105)
[2021-03-12] MEDS: INSULIN ASPART (*BKC) 100 UNITS/ML SUB-Q (16:29)
[2021-03-12 19:12] VITALS: BP 103/40; PULSE 67; RESP 17; TEMP 36.4; O2SAT 98
[2021-03-12 20:00] VITALS: O2SAT 98
[2021-03-12] MEDS: INSULIN ASPART (*BKC) 100 UNITS/ML 10 UNITS SUB-Q (20:49)
[2021-03-12 21:16] LABS: Glucose Point of Care 301 mg/dl (65-105)
[2021-03-13] MEDS: ACETAMINOPHEN 325 MG TABLET 650 MG PO ×2 (01:20→22:55)
[2021-03-13 03:22] VITALS: BP 131/61; PULSE 67; RESP 17; TEMP 36.1; O2SAT 94
[2021-03-13 05:01] LABS: Estimated CRCL calculation 38 ml/min; Estimated Glomerular Filt Rate 23
[2021-03-13 06:58] LABS: Glucose Point of Care 146 mg/dl (65-105)
[2021-03-13 07:55] VITALS: BP 122/64
[2021-03-13] MEDS: INSULIN GLARGINE (*BKC) 100 UNITS/ML 30 UNITS SUB-Q ×2 (08:29→16:27)
[2021-03-13] MEDS: OMEGA 3 POLYUNSAT FATTY ACIDS 1 GM CAP PO (08:29)
[2021-03-13] MEDS: FUROSEMIDE 20 MG TABLET PO (08:29)
[2021-03-13 08:36] VITALS: O2SAT 95
[2021-03-13] MEDS: FLUTICASONE/UMECLIDIN/VILANTER 100-62.5-25 MCG ELLIPTA 1 PUFF INHALATION (09:01)
[2021-03-13 09:02] VITALS: O2SAT 95
--- NOTE | 2021-03-13 11:16 | PM.IMPN ---
Progress Note: A&P Assessment and Plan (1) Diastolic congestive heart failure: Code(s): I50.30 - Unspecified diastolic (congestive) heart failure Status: Chronic Assessment and Plan: Pts on oral lasix doing well on this chronic and stable presently (2) Abdominal wall cellulitis: Code(s): L03.311 - Cellulitis of abdominal wall Status: Acute Assessment and Plan: Pt is on iv vancomycin and iv primaxin area clearing well another 1-2 days before DC. BC are negative to date can stop vancomycin. (3) Acute respiratory failure with hypoxia and hypercapnia: Code(s): J96.01 - Acute respiratory failure with hypoxia; J96.02 - Acute respiratory failure with hypercapnia Status: Acute Assessment and Plan: The patient is chronically on oxygen at 2 L per nasal cannula. Continue with her inhalers. The patient has obstructive sleep apnea but is noncompliant with her CPAP. Pt to continue on oxygen at home. (4) CKD (chronic kidney disease) stage 4, GFR 15-29 ml/min: Code(s): N18.4 - Chronic kidney disease, stage 4 (severe) Status: Acute Assessment and Plan: The patient is at her baseline please continue to monitor. (5) Obesity hypoventilation syndrome: Code(s): E66.2 - Morbid (severe) obesity with alveolar hypoventilation Status: Acute Assessment and Plan: The patient is intolerant of the CPAP. (6) Diabetes: Code(s): E11.9 - Type 2 diabetes mellitus without complications Status: Acute Assessment and Plan: Accu-Cheks AC and HS. Last A1c was 7.4 on 11/25/2020. Sliding scale insulin. Continue with Lantus. (7) Morbid (severe) obesity due to excess calories: Code(s): E66.01 - Morbid (severe) obesity due to excess calories Status: Acute Assessment and Plan: Pt advised to get up and walk Subjective Date/time seen: 03/13/21 11:16 Interval history: 65 year old diabetic female patient. Who stated that she had some right lower quadrant abdominal pain last night. She also felt sick to her stomach. She had a tactile fever. The patient stated that she did not have any redness or swelling to her lower pannus until today. The patient noticed that she has redness to her lower abdomen all the way up to about 3 in from her umbilical area. infection in abdomen is clearing pt is advanced to ambulate more hopeful dc in 1-2 days time. Review of Systems Review of Systems: All systems reviewed & are unremarkable except as noted in HPI and below Exam Narrative: GEN: Morbidly obese, chronically unwell on oxygen Neck: no JVD Lungs: clear lungs Abd: soft, NT, large erythematous area lower abdo to groin clearing well Ext: b/l LE venous stasis changes Neuro: Generalized weakness Psych: Good mood Objective Data Vital Signs Vital Signs: Vital Signs - 24 hr 03/12/21 13:56 03/12/21 19:12 03/12/21 20:00 Temperature 36.2 C L 36.4 C L Pulse Rate 77 67 Respiratory Rate 20 17 Blood Pressure 106/50 L 103/40 L Pulse Oximetry 95 98 98 03/13/21 03:22 03/13/21 07:55 03/13/21 08:36 Temperature 36.1 C L Pulse Rate 67 Respiratory Rate 17 Blood Pressure 131/61 122/64 Pulse Oximetry 94 95 03/13/21 09:02 Temperature Pulse Rate Respiratory Rate Blood Pressure Pulse Oximetry 95 Intake/Output Intake/Output: Intake & Output 03/10/21 03/11/21 03/12/21 03/13/21 23:59 23:59 23:59 23:59 Intake Total 890 2700 2400 1040 Output Total 1900 2100 400 Balance 890 800 300 640 Meds/Results Medications: Active Medications Generic Name Dose Route Start Last Admin Trade Name Freq PRN Reason Stop Dose Admin Acetaminophen 650 mg 03/10/21 20:42 03/13/21 01:20 Acetaminophen 325 Mg Tablet PO 650 mg BID PRN Administration pain 1-3 Albuterol 2 puff 03/10/21 20:42 Albuterol Sulfate (*Sp) Aerosol 1 Puff INHALATION Q6H PRN shortness of breath Dextrose 12.5 gm
[2021-03-13 11:45] LABS: Glucose Point of Care 144 mg/dl (65-105)
[2021-03-13 14:10] VITALS: BP 122/53; PULSE 72; RESP 18; TEMP 36.7; O2SAT 98
[2021-03-13 16:18] LABS: Glucose Point of Care 201 mg/dl (65-105)
[2021-03-13] MEDS: INSULIN ASPART (*BKC) 100 UNITS/ML SUB-Q (16:27)
[2021-03-13 19:35] VITALS: BP 129/62; PULSE 82; RESP 18; TEMP 36.2; O2SAT 93
[2021-03-13 20:48] LABS: Glucose Point of Care 229 mg/dl (65-105)
[2021-03-14] VITALS (8 sets, daily range): BP systolic 110–146; BP diastolic 41–64; PULSE 70–77; RESP 16–20; TEMP 36–36.9; O2SAT 93–98
[2021-03-14 07:12] LABS: Glucose Point of Care 109 mg/dl (65-105)
[2021-03-14] MEDS: FUROSEMIDE 20 MG TABLET PO (08:22)
[2021-03-14] MEDS: OMEGA 3 POLYUNSAT FATTY ACIDS 1 GM CAP PO (08:22)
[2021-03-14] MEDS: INSULIN GLARGINE (*BKC) 100 UNITS/ML 30 UNITS SUB-Q ×2 (08:23→16:56)
[2021-03-14] MEDS: FLUTICASONE/UMECLIDIN/VILANTER 100-62.5-25 MCG ELLIPTA 1 PUFF INHALATION (08:56)
[2021-03-14 11:04] LABS: Glucose Point of Care 152 mg/dl (65-105)
--- NOTE | 2021-03-14 11:57 | PM.IMPN ---
Progress Note: A&P Assessment and Plan (1) Diastolic congestive heart failure: Code(s): I50.30 - Unspecified diastolic (congestive) heart failure Status: Chronic Assessment and Plan: Pts on oral lasix doing well on this chronic and stable presently (2) Abdominal wall cellulitis: Code(s): L03.311 - Cellulitis of abdominal wall Status: Acute Assessment and Plan: Pt is on iv vancomycin and iv primaxin area clearing well another 1-2 days before DC. BC are negative to date can stop vancomycin. (3) Acute respiratory failure with hypoxia and hypercapnia: Code(s): J96.01 - Acute respiratory failure with hypoxia; J96.02 - Acute respiratory failure with hypercapnia Status: Acute Assessment and Plan: The patient is chronically on oxygen at 2 L per nasal cannula. Continue with her inhalers. The patient has obstructive sleep apnea but is noncompliant with her CPAP. Pt to continue on oxygen at home. (4) CKD (chronic kidney disease) stage 4, GFR 15-29 ml/min: Code(s): N18.4 - Chronic kidney disease, stage 4 (severe) Status: Acute Assessment and Plan: The patient is at her baseline please continue to monitor. (5) Obesity hypoventilation syndrome: Code(s): E66.2 - Morbid (severe) obesity with alveolar hypoventilation Status: Acute Assessment and Plan: The patient is intolerant of the CPAP. (6) Diabetes: Code(s): E11.9 - Type 2 diabetes mellitus without complications Status: Acute Assessment and Plan: Accu-Cheks AC and HS. Last A1c was 7.4 on 11/25/2020. Sliding scale insulin. Continue with Lantus. (7) Morbid (severe) obesity due to excess calories: Code(s): E66.01 - Morbid (severe) obesity due to excess calories Status: Acute Assessment and Plan: Pt advised to get up and walk Additional Plan 03/11/21 stable on 2L NC afebrile w WBCs now WNL CKD 4 stable BG near goal on vanc/imipenem x cellulitis anticipated LOS 3 days if continues to clinically improve pannus erythematous warm indurated and extremely tender 03/12/21 cont to have significant erythema and induration of pannus affected by cellulitis cont vanc and imipenem BG near goal cont current care anticipate home w C when clinically improved 03/14 Patient is a 65-year-old female morbidly obese presented with a abdominal cellulitis as well as lower extremities initially patient was treated imipenem and vancomycin, follow blood culture has no growth and vancomycin was stopped, Patient stats feeling and erythema is receding denies any fever or chills, patient has a significant cellulitis will benefit from IV antibiotics removal of 7 days, antibiotics were started 03/10, 4/7 days. will continue to monitor will have a PT OT evaluate the patient and further recommendation to follow. Subjective Date/time seen: 03/14/21 11:57 Interval history: 65 year old diabetic female patient. Who stated that she had some right lower quadrant abdominal pain last night. She also felt sick to her stomach. She had a tactile fever. The patient stated that she did not have any redness or swelling to her lower pannus until today. The patient noticed that she has redness to her lower abdomen all the way up to about 3 in from her umbilical area. infection in abdomen is clearing pt is advanced to ambulate more hopeful dc in 1-2 days time. 03/14 Patient is a 65-year-old female morbidly obese presented with a abdominal cellulitis as well as lower extremities initially patient was treated imipenem and vancomycin, follow blood culture has no growth and vancomycin was stopped, Patient stats feeling and erythema is receding denies any fever or chills, patient has a significant cellulitis will benefit from IV antibiotics removal of 7 days, antibiotics were started 03/10, 4/7 days. will continue to monitor will have a PT OT evaluate the patient and further recommendation to follow
--- NOTE | 2021-03-14 12:40 | PC.NURSE ---
On 03/14/21, the student, Mckayla Adame, provided care and completed [facility] documentation on this patient. I have reviewed the student's documentation and agree with the findings.
--- NOTE | 2021-03-14 13:07 | P.CDI_ITS ---
CDI Query Clarification Request -Acute respiratory failure has been documented -Per EDP pt with normal respiratory effort, able to speak in complete sentences, no respiratory distress, not tachypneic, chest clear to auscultation, and pt denied shortness of breath. -Pt is chronically on home O2 at 2L per documentation -Pt is on O2 here at 2L Please clarify acuity of respiratory failure: * Acute * Chronic * Acute on chronic * Unable to determine <Mary Cole RN - Last Filed: 03/14/21 13:30> Clarified Diagnosis (1) Obesity hypoventilation syndrome: Code(s): E66.2 - Morbid (severe) obesity with alveolar hypoventilation <Mary Cole RN - Last Filed: 03/14/21 13:30> Status: Acute <Mary Cole RN - Last Filed: 03/14/21 13:30> Assessment and Plan: most likely patient has chronic respiratory failure due to obesity and hypoventilation. <Heriberto Puente MD - Last Filed: 03/20/21 17:59>
[2021-03-14 16:51] LABS: Glucose Point of Care 153 mg/dl (65-105)
[2021-03-14 21:13] LABS: Glucose Point of Care 249 mg/dl (65-105)
[2021-03-15 06:00] VITALS: BP 125/48; PULSE 72; RESP 20; TEMP 36.3; O2SAT 99
[2021-03-15 07:32] LABS: Glucose Point of Care 168 mg/dl (65-105)
[2021-03-15 07:51] LABS: Glucose Point of Care 135 mg/dl (65-105)
[2021-03-15] MEDS: FLUTICASONE/UMECLIDIN/VILANTER 100-62.5-25 MCG ELLIPTA 1 PUFF INHALATION (07:53)
[2021-03-15 07:55] VITALS: O2SAT 96
[2021-03-15 08:00] VITALS: O2SAT 93
[2021-03-15] MEDS: INSULIN GLARGINE (*BKC) 100 UNITS/ML 30 UNITS SUB-Q (08:12)
[2021-03-15] MEDS: OMEGA 3 POLYUNSAT FATTY ACIDS 1 GM CAP PO (08:13)
[2021-03-15] MEDS: FUROSEMIDE 20 MG TABLET PO (08:13)
[2021-03-15 11:40] LABS: Glucose Point of Care 181 mg/dl (65-105)
--- NOTE | 2021-03-15 13:38 | PM.IMPN ---
Progress Note: A&P Assessment and Plan (1) Diastolic congestive heart failure: Code(s): I50.30 - Unspecified diastolic (congestive) heart failure Status: Chronic Assessment and Plan: Pts on oral lasix doing well on this chronic and stable presently (2) Abdominal wall cellulitis: Code(s): L03.311 - Cellulitis of abdominal wall Status: Acute Assessment and Plan: Pt is on iv vancomycin and iv primaxin area clearing well another 1-2 days before DC. BC are negative to date can stop vancomycin. (3) Acute respiratory failure with hypoxia and hypercapnia: Code(s): J96.01 - Acute respiratory failure with hypoxia; J96.02 - Acute respiratory failure with hypercapnia Status: Acute Assessment and Plan: The patient is chronically on oxygen at 2 L per nasal cannula. Continue with her inhalers. The patient has obstructive sleep apnea but is noncompliant with her CPAP. Pt to continue on oxygen at home. (4) CKD (chronic kidney disease) stage 4, GFR 15-29 ml/min: Code(s): N18.4 - Chronic kidney disease, stage 4 (severe) Status: Acute Assessment and Plan: The patient is at her baseline please continue to monitor. (5) Obesity hypoventilation syndrome: Code(s): E66.2 - Morbid (severe) obesity with alveolar hypoventilation Status: Acute Assessment and Plan: The patient is intolerant of the CPAP. (6) Diabetes: Code(s): E11.9 - Type 2 diabetes mellitus without complications Status: Acute Assessment and Plan: Accu-Cheks AC and HS. Last A1c was 7.4 on 11/25/2020. Sliding scale insulin. Continue with Lantus. (7) Morbid (severe) obesity due to excess calories: Code(s): E66.01 - Morbid (severe) obesity due to excess calories Status: Acute Assessment and Plan: Pt advised to get up and walk Additional Plan 03/11/21 stable on 2L NC afebrile w WBCs now WNL CKD 4 stable BG near goal on vanc/imipenem x cellulitis anticipated LOS 3 days if continues to clinically improve pannus erythematous warm indurated and extremely tender 03/12/21 cont to have significant erythema and induration of pannus affected by cellulitis cont vanc and imipenem BG near goal cont current care anticipate home w C when clinically improved 03/14 Patient is a 65-year-old female morbidly obese presented with a abdominal cellulitis as well as lower extremities initially patient was treated imipenem and vancomycin, follow blood culture has no growth and vancomycin was stopped, Patient stats feeling and erythema is receding denies any fever or chills, patient has a significant cellulitis will benefit from IV antibiotics removal of 7 days, antibiotics were started 03/10, 4/7 days. will continue to monitor will have a PT OT evaluate the patient and further recommendation to follow. 03/15 Patient remains clinically stable has no new complaint patient being treated with IV imipenem day 10/21, will continue present management, will continue to monitor and plan is to discharge patient once patient completes 7 day course of IV antibiotic on Saturday. Subjective Date/time seen: 03/15/21 13:38 Interval history: 65 year old diabetic female patient. Who stated that she had some right lower quadrant abdominal pain last night. She also felt sick to her stomach. She had a tactile fever. The patient stated that she did not have any redness or swelling to her lower pannus until today. The patient noticed that she has redness to her lower abdomen all the way up to about 3 in from her umbilical area. infection in abdomen is clearing pt is advanced to ambulate more hopeful dc in 1-2 days time. 03/14 Patient is a 65-year-old female morbidly obese presented with a abdominal cellulitis as well as lower extremities initially patient was treated imipenem and vancomycin, follow blood culture has no growth and vancomycin was stopped, Patient stats feeling and erythema is rece
[2021-03-15 14:06] VITALS: BP 120/49; PULSE 73; RESP 18; TEMP 36.3; O2SAT 94
[2021-03-15 16:20] LABS: Glucose Point of Care 219 mg/dl (65-105)
[2021-03-15] MEDS: INSULIN ASPART (*BKC) 100 UNITS/ML SUB-Q (16:54)
[2021-03-15] MEDS: INSULIN GLARGINE (*BKC) 100 UNITS/ML 10 UNITS SUB-Q (16:57)
[2021-03-15] MEDS: ACETAMINOPHEN 325 MG TABLET 650 MG PO (18:21)
[2021-03-15 20:20] VITALS: O2SAT 94
[2021-03-15 21:05] LABS: Glucose Point of Care 258 mg/dl (65-105)
[2021-03-15] MEDS: INSULIN ASPART (*BKC) 100 UNITS/ML 10 UNITS SUB-Q (21:06)
[2021-03-15 21:15] VITALS: BP 134/50; PULSE 71; RESP 16; TEMP 36.4; O2SAT 94; O2SAT 95
[2021-03-16] VITALS (7 sets, daily range): BP systolic 108–122; BP diastolic 36–57; PULSE 71–92; RESP 16–20; TEMP 35.8–36.6; O2SAT 94–98
[2021-03-16 07:24] LABS: Glucose Point of Care 148 mg/dl (65-105)
[2021-03-16] MEDS: FLUTICASONE/UMECLIDIN/VILANTER 100-62.5-25 MCG ELLIPTA 1 PUFF INHALATION (08:26)
[2021-03-16] MEDS: INSULIN GLARGINE (*BKC) 100 UNITS/ML 10 UNITS SUB-Q ×2 (08:46→16:57)
[2021-03-16] MEDS: FUROSEMIDE 20 MG TABLET PO (08:46)
[2021-03-16] MEDS: OMEGA 3 POLYUNSAT FATTY ACIDS 1 GM CAP PO (08:46)
[2021-03-16] MEDS: ACETAMINOPHEN 325 MG TABLET 650 MG PO (11:35)
[2021-03-16 11:41] LABS: Glucose Point of Care 187 mg/dl (65-105)
--- NOTE | 2021-03-16 13:33 | PM.IMPN ---
Progress Note: A&P Assessment and Plan (1) Diastolic congestive heart failure: Code(s): I50.30 - Unspecified diastolic (congestive) heart failure Status: Chronic Assessment and Plan: Pts on oral lasix doing well on this chronic and stable presently (2) Abdominal wall cellulitis: Code(s): L03.311 - Cellulitis of abdominal wall Status: Acute Assessment and Plan: Pt is on iv vancomycin and iv primaxin area clearing well another 1-2 days before DC. BC are negative to date can stop vancomycin. (3) Acute respiratory failure with hypoxia and hypercapnia: Code(s): J96.01 - Acute respiratory failure with hypoxia; J96.02 - Acute respiratory failure with hypercapnia Status: Acute Assessment and Plan: The patient is chronically on oxygen at 2 L per nasal cannula. Continue with her inhalers. The patient has obstructive sleep apnea but is noncompliant with her CPAP. Pt to continue on oxygen at home. (4) CKD (chronic kidney disease) stage 4, GFR 15-29 ml/min: Code(s): N18.4 - Chronic kidney disease, stage 4 (severe) Status: Acute Assessment and Plan: The patient is at her baseline please continue to monitor. (5) Obesity hypoventilation syndrome: Code(s): E66.2 - Morbid (severe) obesity with alveolar hypoventilation Status: Acute Assessment and Plan: The patient is intolerant of the CPAP. (6) Diabetes: Code(s): E11.9 - Type 2 diabetes mellitus without complications Status: Acute Assessment and Plan: Accu-Cheks AC and HS. Last A1c was 7.4 on 11/25/2020. Sliding scale insulin. Continue with Lantus. (7) Morbid (severe) obesity due to excess calories: Code(s): E66.01 - Morbid (severe) obesity due to excess calories Status: Acute Assessment and Plan: Pt advised to get up and walk Additional Plan 03/11/21 stable on 2L NC afebrile w WBCs now WNL CKD 4 stable BG near goal on vanc/imipenem x cellulitis anticipated LOS 3 days if continues to clinically improve pannus erythematous warm indurated and extremely tender 65 year old diabetic female patient. Who stated that she had some right lower quadrant abdominal pain last night. She also felt sick to her stomach. She had a tactile fever. The patient stated that she did not have any redness or swelling to her lower pannus until today. The patient noticed that she has redness to her lower abdomen all the way up to about 3 in from her umbilical area. infection in abdomen is clearing pt is advanced to ambulate more hopeful dc in 1-2 days time. 03/14 Patient is a 65-year-old female morbidly obese presented with a abdominal cellulitis as well as lower extremities initially patient was treated imipenem and vancomycin, follow blood culture has no growth and vancomycin was stopped, Patient stats feeling and erythema is receding denies any fever or chills, patient has a significant cellulitis will benefit from IV antibiotics removal of 7 days, antibiotics were started 03/10, 09/21 days. will continue to monitor will have a PT OT evaluate the patient and further recommendation to follow. 03/15 Patient remains clinically stable has no new complaint patient being treated with IV imipenem day 10/21, will continue present management, will continue to monitor and plan is to discharge patient once patient completes 7 day course of IV antibiotic on Saturday. 03/16 Patient states rash is getting better, denies any fever or chills, patient has no new complaints, clinically stable patient will complete 7 day course of IV antibiotics tomorrow and will discharge the patient. Subjective Date/time seen: 03/16/21 13:33 Interval history: 65 year old diabetic female patient. Who stated that she had some right lower quadrant abdominal pain last night. She also felt sick to her stomach. She had a tactile fever. The patient stated that she did not have any redness or swelling to her lower pannus unt
[2021-03-16] MEDS: INSULIN ASPART (*BKC) 100 UNITS/ML SUB-Q (16:58)
[2021-03-16 17:03] LABS: Glucose Point of Care 218 mg/dl (65-105)
--- NOTE | 2021-03-16 18:25 | PC.NURSE ---
This patient, Rosario Ruiz, was transferred to [address] [place] [address] on 03/16/21 at 1825. Personal belongings sent with patient. Report given to STEVEN Spring. Appropriate documentation sent with patient.
[2021-03-16] MEDS: INSULIN ASPART (*BKC) 100 UNITS/ML 10 UNITS SUB-Q (21:53)
[2021-03-16 22:17] LABS: Glucose Point of Care 268 mg/dl (65-105)
[2021-03-17 01:11] VITALS: BP 115/45; PULSE 73; RESP 18; TEMP 35.6; O2SAT 98
[2021-03-17 04:45] VITALS: BP 123/42; PULSE 72; RESP 18; TEMP 35.5; O2SAT 96
[2021-03-17 06:42] LABS: Hematocrit 36.2 % (37.0-47.0); Mean Corpuscular HGB Conc 30.4 g/dl (32-36); Mean Corpuscular Hemoglobin 28.5 pg (26-34); Mean Corpuscular Volume 93.8 fl (80-100); Mean Platelet Volume 12.1 fl (7.4-10.4); Platelet Count Result 152 k/mm3 (150-375); Red Blood Count 3.86 M/mm3 (4.2-5.4); Red Cell Distribution Width 15.2 % (11.5-14.5)
[2021-03-17 08:34] LABS: Glucose Point of Care 164 mg/dl (65-105)
[2021-03-17 08:57] VITALS: BP 105/57; PULSE 75; RESP 14; TEMP 36.7; O2SAT 96
[2021-03-17 09:00] VITALS: O2SAT 96
[2021-03-17] MEDS: OMEGA 3 POLYUNSAT FATTY ACIDS 1 GM CAP PO (09:10)
[2021-03-17] MEDS: INSULIN GLARGINE (*BKC) 100 UNITS/ML 10 UNITS SUB-Q (09:10)
[2021-03-17] MEDS: FUROSEMIDE 20 MG TABLET PO (09:10)
[2021-03-17 10:58] LABS: Anion Gap 8 mmol/L (8-16); Blood Urea Nitrogen 35 mg/dL (7-17); Carbon Dioxide 28 mmol/L (22-30); Chloride 100 mmol/L (98-107); Estimated CRCL calculation 36 ml/min; Estimated Glomerular Filt Rate 22; Glucose 165 mg/dL (65-110); Potassium 3.6 mmol/L (3.4-5.0); Sodium 136 mmol/L (137-145)
[2021-03-17] MEDS: ACETAMINOPHEN 325 MG TABLET 650 MG PO (11:06)
[2021-03-17 12:18] LABS: Glucose Point of Care 177 mg/dl (65-105)
[2021-03-17 12:41] VITALS: BP 125/66; PULSE 84; RESP 12; TEMP 36.6; O2SAT 96
--- NOTE | 2021-03-17 13:00 | PM.DS ---
DS: Admitting Diagnosis Discharge Date 03/17/2021 Admitting Diagnosis Chief Complaint: Abdominal pain DS: Discharge Diagnosis Discharge Diagnosis (1) Obesity hypoventilation syndrome: Code(s): E66.2 - Morbid (severe) obesity with alveolar hypoventilation Status: Acute Assessment and Plan: most likely patient has chronic respiratory failure due to obesity and hypoventilation. DS: Summary Hospital Course Reason for hospitalization: this is a 65 year old diabetic female patient. Who stated that she had some right lower quadrant abdominal pain last night. She also felt sick to her stomach. She had a tactile fever. The patient stated that she did not have any redness or swelling to her lower pannus until today. The patient noticed that she has redness to her lower abdomen all the way up to about 3 in from her umbilical area. The patient stated that her blood sugars are typically in the 100s just good for her. Today her blood sugar was 174. The patient has chronic renal disease and her creatinine is 2.4 today which is at her baseline. The patient has multiple allergies and was started on clindamycin. As per diabetic cellulitis protocol vancomycin and Primaxin. Patient's white count is 10.4. Patient's platelets are 126. It appears that patient has chronic thrombocytopenia. CT of the abdomen and pelvis read as the following 1. Chronic skin thickening and subcutaneous fat stranding in low anterior abdominal wall, consistent with inflammation. 2. Bilateral nonobstructing kidney stones. The patient was admitted to observation status on the date of service of 03/10/2021. Chief Complaint: Abdominal pain Hospital Course: 03/11/21 stable on 2L NC afebrile w WBCs now WNL CKD 4 stable BG near goal on vanc/imipenem x cellulitis anticipated LOS 3 days if continues to clinically improve pannus erythematous warm indurated and extremely tender 65 year old diabetic female patient. Who stated that she had some right lower quadrant abdominal pain last night. She also felt sick to her stomach. She had a tactile fever. The patient stated that she did not have any redness or swelling to her lower pannus until today. The patient noticed that she has redness to her lower abdomen all the way up to about 3 in from her umbilical area. infection in abdomen is clearing pt is advanced to ambulate more hopeful dc in 1-2 days time. 03/14 Patient is a 65-year-old female morbidly obese presented with a abdominal cellulitis as well as lower extremities initially patient was treated imipenem and vancomycin, follow blood culture has no growth and vancomycin was stopped, Patient stats feeling and erythema is receding denies any fever or chills, patient has a significant cellulitis will benefit from IV antibiotics removal of 7 days, antibiotics were started 03/10, 4/7 days. will continue to monitor will have a PT OT evaluate the patient and further recommendation to follow. 03/15 Patient remains clinically stable has no new complaint patient being treated with IV imipenem day 10/21, will continue present management, will continue to monitor and plan is to discharge patient once patient completes 7 day course of IV antibiotic on Saturday. 03/16 Patient states rash is getting better, denies any fever or chills, patient has no new complaints, clinically stable patient will complete 7 day course of IV antibiotics tomorrow and will discharge the patient. Patient is clinically stable, will discharge home today. Time Spent with Patient Time attestation: Total time spent providing and/or coordinating discharge services: Exam Narrative: morbidly obese Patient is comfortable, NAD HEENT: eyes are clear and none icteric LUNGS: normal respiratory effort ABD: morbidly obese and distended Lower extremities: erythema and edema SKIN: nonjaundiced Neuro: grossly intact normal speech. DS: Data Data Completed and Pending Labs on day of discharge: Labs from last 2
--- NOTE | 2021-03-17 14:04 | PCRCNOTE ---
Window of time for administration has passed. See next scheduled administration.
--- NOTE | 2021-03-17 14:34 | PC.NURSE ---
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 Chung tank sent with pt and daughter. Daughter Ioana Castillo states will bring it back tomorrow, phone number is [phone].
[2021-03-17 14:39] VITALS: BP 125/66; PULSE 84; RESP 12; TEMP 36.6; O2SAT 96
[2021-03-17 18:35] LABS: SARS-CoV-2 RNA PCR Negative
== END 2021-03-17 14:25 | disposition home or self-care (01) | DRG 638 ==
LOC: ANHED 15:44 → ANH2MED 16:03 → ANH3MEDSUR 03-17 13:00 → ANH2MED 03-20 15:46 → ANH3MEDSUR 03-20 15:46
PROVIDERS: Nurse Practitioner; Admitting Provider Hospitalist; Emergency Provider Emergency Medicine; PCP Nurse Practitioner Family; Visit Provider Family Medicine
DX: E11.628 Type 2 diabetes mellitus with other skin complications (principal); L03.311 Cellulitis of abdominal wall; Z68.44 Body mass index [BMI] 60.0-69.9, adult; E66.2 Morbid (severe) obesity with alveolar hypoventilation; I50.32 Chronic diastolic (congestive) heart failure; J96.12 Chronic respiratory failure with hypercapnia; J96.11 Chronic respiratory failure with hypoxia; E11.22 Type 2 diabetes mellitus with diabetic chronic kidney disease; N18.4 Chronic kidney disease, stage 4 (severe); D69.6 Thrombocytopenia, unspecified; Z99.81 Dependence on supplemental oxygen; Z20.822 Contact with and (suspected) exposure to COVID-19; J44.9 Chronic obstructive pulmonary disease, unspecified; E78.5 Hyperlipidemia, unspecified; Z79.4 Long term (current) use of insulin; Z87.891 Personal history of nicotine dependence; Z88.0 Allergy status to penicillin; Z88.1 Allergy status to other antibiotic agents; Z88.3 Allergy status to other anti-infective agents; Z91.19 Patient's noncompliance with other medical treatment and regimen
CPT/HCPCS: 36415; 74176; 80048; 80053; 82550; 82565; 82948; 83605; 83615; 83735; 84443; 85025; 85027; 86140; 87040; 94640; 96365; 96366; 96367; 97161; 97165; 99285; A9270; C9803; G0378; J0743; J1815; J3370; U0003; U0005

== ENCOUNTER 2021-04-07 13:34 | Emergency (ER) | payer MEDICARE, MEDICAID, SELFPAY ==
[2021-04-07 14:02] VITALS: BP 145/49; PULSE 73; RESP 15; O2SAT 95
--- NOTE | 2021-04-07 14:12 | ED.FEMALEGU ---
HPI - Female Genitourinary General Chief complaint: Urogenital-Female Stated complaint: abn lab. Time Seen by Provider: 04/07/21 13:40 Source: patient Mode of arrival: ambulatory Limitations: no limitations History of Present Illness HPI Narrative: Patient is a 65-year-old female complaining of dysuria x4 to 5 days. Patient had a urinalysis done by her PCP yesterday and was told today to go to the emergency room to get IV antibiotics, patient is wondering why her doctor just didn't call in a prescription for oral antibiotics. Patient denies any other symptoms. Patient denies abdominal pain, flank pain, nausea, vomiting, fever or chills. Related Data Home Medications Medication Instructions Recorded Confirmed acetaminophen 650 mg 650 mg PO BID PRN tablet 04/08/20 03/10/21 tablet,extended release albuterol sulfate See Rx Instructions .ROUTE 11/24/20 03/10/21 .COMPLEX PRN Lantus U-100 Insulin 50 unit SUBCUT HS 03/10/21 03/10/21 Trelegy Ellipta 1 inh INHALATION DAILY 03/10/21 03/10/21 fluticasone propionate 1 spray INTRANASAL PRN PRN 03/10/21 03/10/21 furosemide 20 mg PO DAILY 03/10/21 03/10/21 insulin lispro [Humalog KwikPen 10 unit SUBCUT ACHS 03/10/21 03/10/21 Insulin] omega-3 acid ethyl esters 1 cap PO DAILY 03/10/21 03/10/21 Allergies Allergy/AdvReac Type Severity Reaction Status Date / Time adhesive tape Allergy Unknown RASH Verified 03/10/21 17:41 atorvastatin Allergy Unknown rash Verified 03/10/21 17:41 ciprofloxacin Allergy Unknown rash Verified 03/10/21 17:41 nitrofurantoin Allergy Unknown rash Verified 03/10/21 17:41 rosuvastatin Allergy Unknown Rash Verified 03/10/21 17:41 Penicillins AdvReac Intermediate Rash Verified 03/10/21 17:41 Review of Systems Review of Systems: All systems reviewed & are unremarkable except as noted in HPI and below Constitutional: Constitutional: Denies body ache(s), Denies chills, Denies excessive sweating, Denies fatigue, Denies fever(s), Denies headache(s), Denies lethargy, Denies malaise, Denies weakness and Denies weight loss Eyes: Eyes: Denies blurry vision, Denies change in vision and Denies loss of vision ENT: Denies dizziness, Denies ear discharge, Denies headache(s), Denies lip swelling, Denies epistaxis, Denies nasal congestion, Denies neck pain, Denies throat swelling and Denies tongue swelling Cardiovascular: Cardiovascular: Denies chest pain, Denies chest pain at rest, Denies chest pain with activity, Denies diaphoresis, Denies rapid heart rate, Denies edema, Denies irregular heart rhythm, Denies lightheadedness, Denies palpitations, Denies dyspnea and Denies dyspnea on exertion Respiratory: Respiratory: Denies chest congestion, Denies cough, Denies hemoptysis, Denies dyspnea and Denies dyspnea on exertion Gastrointestinal: Gastrointestinal: Denies abdominal pain, Denies melena, Denies hematochezia, Denies diarrhea, Denies nausea, Denies vomiting and Denies hematemesis Musculoskeletal: Musculoskeletal: Denies abnormal gait, Denies deformity, Denies joint swelling, Denies limited range of motion, Denies neck pain and Denies numbness Neurologic: Denies Abnormal speech present, Denies abnormal gait, Denies confusion, Denies dizziness, Denies headache(s), Denies focal weakness, Denies loss of vision, Denies numbness, Denies Other visual disturbances, Denies Sensory deficit (Neuro) and Denies weakness Psychiatric: Psychiatric: Denies confusion, Denies depression, Denies auditory hallucinations, Denies homicidal ideation and Denies suicidal ideation Endocrine: Endocrine: Denies cold intolerance, Denies excessive sweating, Denies fatigue, Denies heat intolerance and Denies palpitations Hematologic/Lymphatic: Hematologic/Lymphatic: Denies easy bleeding and Denies easy bruising Allergic/Immunologic: Allergic/Immunologic: Denies lip swelling, Denies throat swelling and Denies tongue swelling PMFSH Past Medical History Medical History (Reviewed 04/07/21 @ 14:13 by Brandt Sheridan
[2021-04-07 14:27] LABS: Glucose Point of Care 198 mg/dl (65-105)
[2021-04-07 15:36] LABS: Add Urine Microscopic? YES; Appearance Urine Cloudy (Clear); Bacteria Urine Trace /hpf; Bilirubin Urine Negative (Negative); Blood Urine 1+ (Negative); Color Urine Yellow (Yellow); Glucose Urine UA 1+ mg/dL (Negative); Ketones Urine Negative (Negative); Leukocyte Esterase Ur 3+ LEU/UL (Negative); Mucus Urine Moderate /lpf; Nitrate Urine Positive (Negative); Protein Urine 1+ mg/dL (Negative); Specific Grav Ur 1.011 (1.001-1.035); Squamous Epithelial Cell Urine Moderate /hpf (Few); Urobilinogen Urine Negative mg/dL (<2.0); WBC Urine >75 /hpf
[2021-04-07] MEDS: cefTRIAXone 1 GM VIAL IM (16:33)
[2021-04-07 16:35] VITALS: BP 130/65; PULSE 76; RESP 20; O2SAT 98
--- NOTE | 2021-04-07 16:36 | PC.NURSE ---
patient's antibiotic mixed with lidocaine at this time.
== END 2021-04-07 17:12 | disposition home or self-care (01) ==
PROVIDERS: Emergency Provider Emergency Medicine; PCP Nurse Practitioner Family
DX: N30.00 Acute cystitis without hematuria (principal); E11.22 Type 2 diabetes mellitus with diabetic chronic kidney disease; N18.4 Chronic kidney disease, stage 4 (severe); D64.9 Anemia, unspecified; I50.30 Unspecified diastolic (congestive) heart failure; E78.5 Hyperlipidemia, unspecified; I89.0 Lymphedema, not elsewhere classified; I87.2 Venous insufficiency (chronic) (peripheral); E55.9 Vitamin D deficiency, unspecified; E66.2 Morbid (severe) obesity with alveolar hypoventilation; Z68.43 Body mass index [BMI] 50.0-59.9, adult; Z86.718 Personal history of other venous thrombosis and embolism; Z86.711 Personal history of pulmonary embolism; Z87.440 Personal history of urinary (tract) infections; Z87.442 Personal history of urinary calculi; Z79.4 Long term (current) use of insulin; Z87.891 Personal history of nicotine dependence
CPT/HCPCS: 81001; 82948; 87077; 87086; 87088; 87186; 96372; 99283; J0696